=== PATIENT | male | born 1945 | race Caucasian/White ===

== ENCOUNTER 2016-05-05 19:00 | Observation (INO) | payer MEDICARE ==
[2016-05-05] MEDS ORDERED: PROVENTIL 2.5 MG/3 ML NEB IH ONE ×4 (19:07→20:07)
[2016-05-05] MEDS ORDERED: ROCEPHIN 1 Gm-D5w 50 ml Bag** 50 ML IV ONE ×2 (19:07→19:17)
[2016-05-05] MEDS ORDERED: Zithromax 500 MG/ 250 ML NaCl Premix 250 ML IV ONE ×2 (19:07→19:17)
[2016-05-05] MEDS ORDERED: Sodium Chloride 0.9% 1000 ML 1,000 ML IV SCH (19:15)
[2016-05-05] MEDS ORDERED: Nitrostat 0.4 MG (ED) SL ONE ×2 (19:15→19:23)
[2016-05-05] MEDS ORDERED: BABY ASPIRIN 81 MG CHEW PO ONE (19:15)
--- NOTE | 2016-05-05 19:15 | ERPHSYRPT ---
- History of Present Illness Time Seen by Provider: 05/05/16 19:01 Source: patient Exam Limitations: no limitations Patient Subjective Stated Complaint: Shortness of breath for a few days. Sts worse since last night. Sts intermittent dry cough with pain in rt posterior ribs. Triage Nursing Assessment: Pt alert, oriented, able to answer questions appropriately. Skin p/w/d. Dry cough noted. Shortness of breath with ambulation noted. Accessory muscle use noted, + JVD noted. Tripod positioning noted. Subcostal retractions noted. SPO2 90% room air. Physician History: FOR THE PAST 2 DAYS PT HAS HAD SHORTNESS OF AIR AND A NON-PRODUCTIVE COUGH; DENIES CHEST PAIN, NAUSEA, DIAPHORESIS, VOMITING. Allergies/Adverse Reactions: No Known Drug Allergies Allergy (Unverified 05/05/16 19:18) Home Medications: Albuterol 2.5 mg/3 ml Neb [Proventil 2.5 mg/3 ml Neb] 2.5 mg IH HS [History] Albuterol Sulfate [Proair Hfa] 8.5 gm IH BID 05/05/16 [History] Alprazolam [Xanax 0.5 mg] 0.5 mg PO TID 05/05/16 [History] Hx Tetanus, Diphtheria Vaccination/Date Given: Yes Hx Influenza Vaccination/Date Given: Yes Hx Pneumococcal Vaccination/Date Given: Yes Immunizations Up to Date: Yes - Review of Systems Constitutional: No Fever Respiratory: Cough, Dyspnea Cardiac: No Chest Pain Abdominal/Gastrointestinal: No Abdominal Pain, No Nausea, No Vomiting Skin: No Rash Endocrine: No Excessive Sweating All Other Systems: Reviewed and Negative - Past Medical History Neurological History: No Pertinent History Cardiac History: No Pertinent History Respiratory History: COPD Endocrine Medical History: No Pertinent History Musculoskeletal History: No Pertinent History - Social History Smoking Status: Current every day smoker How long have you smoked: 30 Exposure to second hand smoke: No Patient Lives Alone: No - Nursing Vital Signs Nursing Vital Signs: Initial Vital Signs Temperature 98.1 F Temperature Source Oral Pulse Rate 124 Respiratory Rate 22 Blood Pressure 113/71 Pain Intensity 0 - Physical Exam General Appearance: alert Eye Exam: PERRL/EOMI, eyes nml inspection Ears, Nose, Throat Exam: hearing grossly normal, pharyngeal erythema (MILD) Neck Exam: normal inspection Respiratory Exam: respiratory distress (MILD), airway intact, diminished breath sounds, prolonged expirations, wheezing Cardiovascular/Chest Exam: tachycardia Abdominal/Gastrointestinal Exam: soft, normal bowel sounds Extremity Exam: No pedal edema Peripheral Pulses Exam: dorsalis-pedis (R): 2+, dorsalis-pedis (L): 2+ Neurologic Exam: alert, cooperative Skin Exam: warm, dry SpO2 Interpretation: hypoxic SpO2: 90 Oxygen Delivery: Room Air - Course Nursing assessment & vital signs reviewed: Yes EKG Interpreted by Me: RATE ([id number]), Sinus Tach, NORMAL AXIS, NORMAL INTERVALS - Radiology Exams Chest X-ray Interpretation: Interpreted by me (COPD) Ordered Tests: Active Orders 24 hr Category Date Time Status Duty Engineer STAT Care 05/05/16 19:07 Active EKG-ER Only STAT Care 05/05/16 19:07 Active IV Insertion STAT Care 05/05/16 19:07 Active Oxygen-ED Only NASAL CANNULA 4 lpm Care 05/05/16 19:07 Active Pulse Oximetry (ED) STAT Care 05/05/16 19:07 Active CHEST 1 VIEW (PORTABLE) Stat Exams 05/05/16 19:08 Taken AMYLASE Stat Lab 05/05/16 19:10 Completed ARTERIAL BLOOD GASES Urgent Lab 05/05/16 19:38 Completed BLOOD CULTURE Stat Lab 05/05/16 19:35 Received CBC W DIFF Stat Lab 05/05/16 19:10 Completed CMP Stat Lab 05/05/16 19:10 Completed CULTURE, THROAT Stat Lab 05/05/16 19:25 Received CULTURE,SPUTUM Stat Lab 05/05/16 19:07 Uncollected LIPASE Stat Lab 05/05/16 19:10 Completed MAGNESIUM Stat Lab 05/05/16 19:10 Completed Manual Differential NC Stat Lab 05/05/16 19:10 Completed [place] Screen Stat Lab 05/05/16 19:10 Received NT PRO BNP Stat Lab 05/05/16 19:10 Completed PROTIME WITH INR Stat Lab 05/05/16 19:10 Completed PTT Stat Lab 05/05/16 19:10 Completed STREP SCREEN-BETA A Stat Lab 05/05/16 19:25 Completed TROPONIN Stat Lab 05/05/16 19:10 Completed UA Stat Lab 05/05/16 19:09 Ordered Urine Triage Profile Stat Lab 05/05/16 19:09 Ordered Respiratory Nebulizer STAT RT 05/05/16 19:08 Completed Respiratory Nebulizer STAT RT 05/05/16 19:56 Active Medication Summary Generic Name Dose Route Start Last Admin Trade Name Mendoza PRN Reason Stop Dose Admin Azithromycin 250 mls @ 125 mls/hr 05/05/16 19:07 05/05/16 19:22 Zithromax 500 Mg/ 250 Ml Nacl Premix IV 05/05/16 21:06 125 mls/hr STAT ONE Administration Sodium Chloride 1,000 mls @ 100 mls/hr 05/05/16 19:15 05/05/16 19:22 Sodium Chloride 0.9% 1000 Ml IV 06/04/16 19:14 100 mls/hr .Q10H YEYO Administration Magnesium Oxide 400 mg 05/05/16 22:00 Mag-Ox 400 PO 06/04/16 21:59 BID YEYO Methylprednisolone Sodium Succinate 125 mg 05/05/16 20:09 Solu-Medrol 125 Mg IV 05/05/16 20:10 STAT ONE Discontinued Medications Generic Name Dose Route Start Last Admin Trade Name Mendoza PRN Reason Stop Dose Admin Albuterol Sulfate 2.5 mg 05/05/16 19:07 05/05/16 19:38 Proventil 2.5 Mg/3 Ml Neb IH 05/05/16 19:08 2.5 mg STAT ONE Administration Albuterol Sulfate Confirm 05/05/16 19:31 Proventil 2.5 Mg/3 Ml Neb Administered 05/05/16 19:32 Dose 2.5 mg IH .STK-MED ONE Albuterol Sulfate 2.5 mg 05/05/16 19:55 05/05/16 20:08 Proventil 2.5 Mg/3 Ml Neb IH 05/05/16 19:56 2.5 mg STAT ONE Administration Aspirin 324 mg 05/05/16 19:15 05/05/16 19:25 Baby Aspirin 81 Mg Chew PO 05/05/16 19:16 324 mg STAT ONE Administration Aspirin Confirm 05/05/16 19:22 Baby Aspirin 81 Mg Chew Administered 05/05/16 19:23 Dose 324 mg .ROUTE .STK-MED ONE Ceftriaxone Sodium/Dextrose 50 mls @ 100 mls/hr 05/05/16 19:07 05/05/16 19:22 Rocephin 1 Gm-D5w 50 Ml Bag IV 05/05/16 19:36 100 mls/hr STAT ONE Administration Azithromycin Confirm 05/05/16 19:17 Zithromax 500 Mg/ 250 Ml Nacl Premix Administered 05/05/16 19:18 Dose 250 mls @ ud IV .STK-MED ONE Sodium Chloride Confirm 05/05/16 19:17 Sodium Chloride 0.9% 1000 Ml Administered 05/05/16 19:18 Dose 1,000 mls @ ud .ROUTE .STK-MED ONE Ceftriaxone Sodium/Dextrose Confirm 05/05/16 19:17 Rocephin 1 Gm-D5w 50 Ml Bag Administered 05/05/16 19:18 Dose 50 mls @ ud IV .STK-MED ONE Nitroglycerin 0.4 mg 05/05/16 19:15 05/05/16 19:25 Nitrostat 0.4 Mg (Ed) SL 05/05/16 19:16 0.4 mg STAT ONE Administration Nitroglycerin Confirm 05/05/16 19:23 Nitrostat 0.4 Mg (Ed) Administered 05/05/16 19:24 Dose 0.4 mg SL .STK-MED ONE Lab/Rad Data: Laboratory Result Diagrams 05/05/16 19:10 05/05/16 19:10 Laboratory Results 05/05/16 05/05/16 05/05/16 Range/Units 19:38 19:25 19:10 WBC (4.0-10.5) K/mm3 RBC (4.1-5.6) M/mm3 Hgb (12.5-18.0) gm/dl Hct (42-50) % MCV (78-100) fl MCH (26-32) pg MCHC (32-36) g/dl RDW (11.5-14.0) % Plt Count (150-450) K/mm3 MPV (6-9.5) fl INR (0.8-3.0) PTT (24.1-36.1) SECONDS Puncture Site LEFT BRACHIAL pCO2 41 (35-45) mmHg pO2 108 H (75-100) mmHg Base Excess 5.6 H (-2.0-2.0) O2 Saturation 95.1 (94-100) g/dF ABG pH 7.47 H (7.35-7.45) ABG HCO3 29.8 H* (22-28) ABG O2 Sat (Measured) 99.2 (95-100) % Greg Test NOT APPLICABLE A-a Gradient 97 a/A Ratio 0.53 Hemoglobin 13.0 Carboxyhemoglobin 2.9 (0.0-6.9) % THgb Methemoglobin 1.3 L (1.4-1.5) % Temperature 37.0 C POC O2 Flow Rate 36 % Sodium (136-145) mEq/L Potassium 4.0 (3.5-5.1) mEq/L Chloride (98-107) mEq/L Carbon Dioxide (21-32) mEq/L Anion Gap (5-15) MEQ/L BUN (9-20) mg/dL Creatinine (0.55-1.30) mg/dl Estimated GFR ML/MIN Glucose (70-110) MG/DL Calcium (8.5-10.1) mg/dL Magnesium (1.8-2.4) mg/dL Total Bilirubin (0.2-1.0) mg/dL AST (15-37) U/L ALT (12-78) U/L Alkaline Phosphatase (46-116) U/L Troponin I (0.000-0.056) ng/ml NT-Pro-B Natriuret Pep (0-125) pg/ml Serum Total Protein (6.4-8.2) gm/dL Albumin (3.4-5.0) g/dL Amylase 40 (25-115) U/L Lipase 106 (73-393) U/L Streptococcus Screen NEGATIVE (Negative) 05/05/16 05/05/16 05/05/16 Range/Units 19:10 19:10 19:10 WBC 16.9 H (4.0-10.5) K/mm3 RBC 4.26 (4.1-5.6) M/mm3 Hgb 13.6 (12.5-18.0) gm/dl Hct 41.5 L (42-50) % MCV 97.4 (78-100) fl MCH 31.9 (26-32) pg MCHC 32.8 (32-36) g/dl RDW 13.2 (11.5-14.0) % Plt Count 218 (150-450) K/mm3 MPV 10.8 H (6-9.5) fl INR 1.23 (0.8-3.0) PTT 34.3 (24.1-36.1) SECONDS Puncture Site pCO2 (35-45) mmHg pO2 (75-100) mmHg Base Excess (-2.0-2.0) O2 Saturation (94-100) g/dF ABG pH (7.35-7.45) ABG HCO3 (22-28) ABG O2 Sat (Measured) (95-100) % Greg Test A-a Gradient a/A Ratio Hemoglobin Carboxyhemoglobin (0.0-6.9) % THgb Methemoglobin (1.4-1.5) % Temperature C POC O2 Flow Rate % Sodium 141 (136-145) mEq/L Potassium 4.0 (3.5-5.1) mEq/L Chloride 102 (98-107) mEq/L Carbon Dioxide 31.7 (21-32) mEq/L Anion Gap 11.1 (5-15) MEQ/L BUN 20 (9-20) mg/dL Creatinine 1.01 (0.55-1.30) mg/dl Estimated GFR > 60 ML/MIN Glucose 100 (70-110) MG/DL Calcium 8.8 (8.5-10.1) mg/dL Magnesium 1.6 L (1.8-2.4) mg/dL Total Bilirubin 0.7 (0.2-1.0) mg/dL AST 13 L (15-37) U/L ALT 15 (12-78) U/L Alkaline Phosphatase 63 (46-116) U/L Troponin I < 0.017 (0.000-0.056) ng/ml NT-Pro-B Natriuret Pep 222 H (0-125) pg/ml Serum Total Protein 7.5 (6.4-8.2) gm/dL Albumin 3.7 (3.4-5.0) g/dL Amylase (25-115) U/L Lipase (73-393) U/L Streptococcus Screen (Negative) - Progress Discussed with Dr.: Cervantes ( - 2006) - Departure Time of Disposition: 20:10 Departure Disposition: Observation Clinical Impression: COPD - ACUTE EXACERBATION, BRONCHITIS, HYPOMAGNESEMIA Condition: Fair Critical Care Time: No
[2016-05-05] MEDS ORDERED: Sodium Chloride 0.9% 1000 ML 1,000 ML ONE (19:17)
[2016-05-05] MEDS ORDERED: BABY ASPIRIN 81 MG CHEW ONE (19:22)
[2016-05-05 19:32] LABS: Mean Cell Volume 97.4 fl (78-100); Mean Corpuscular Hemoglobin 31.9 pg (26-32); Mean Platelet Volume 10.8 fl (6-9.5); Platelet Count 218 K/mm3 (150-450); Red Blood Count 4.26 M/mm3 (4.1-5.6); Red Cell Distribution Width 13.2 % (11.5-14.0); White Blood Count 16.9 K/mm3 (4.0-10.5)
[2016-05-05 19:46] LABS: A-aADO2 97; ARTERIAL BLD GAS O2 SATURATION 99.2 % (95-100); ARTERIAL BLOOD GAS BASE EXCESS 5.6 (-2.0-2.0); ARTERIAL BLOOD GAS FIO2 36 %; ARTERIAL BLOOD GAS PO2 108 mmHg (75-100); ARTERIAL BLOOD GAS pH 7.47 (7.35-7.45)
[2016-05-05 19:49] LABS: INR 1.23 (0.8-3.0); PROTIME 13.7 SECONDS (8.83-12.87)
[2016-05-05 19:52] LABS: PTT 34.3 SECONDS (24.1-36.1)
[2016-05-05 19:54] LABS: LIPASE 106 U/L (73-393)
[2016-05-05 20:03] LABS: ALBUMIN 3.7 g/dL (3.4-5.0); ALKALINE PHOSPHATASE 63 U/L (46-116); ANION GAP 11.1 MEQ/L (5-15); BILIRUBIN,TOTAL 0.7 mg/dL (0.2-1.0); BLOOD UREA NITROGEN 20 mg/dL (9-20); CHLORIDE 102 mEq/L (98-107); Carbon Dioxide 31.7 mEq/L (21-32); Glucose 100 MG/DL (70-110); MAGNESIUM 1.6 mg/dL (1.8-2.4); SGOT/AST 13 U/L (15-37); SGPT/ALT 15 U/L (12-78); SODIUM 141 mEq/L (136-145); TROPONIN < 0.017 ng/ml (0.000-0.056); Total Protein 7.5 gm/dL (6.4-8.2)
[2016-05-05] MEDS ORDERED: solu-MEDROL 125 MG IV ONE (20:09)
[2016-05-05] MEDS ORDERED: MAG-OX 400 ONE (20:24)
[2016-05-05] MEDS ORDERED: solu-MEDROL 125 MG ONE (20:24)
[2016-05-05 20:39] LABS: ATYPICAL LYMPHS 1 %; BAND 2 % (0.0-2.0); Platelet Estimate NORMAL (NORMAL); Total Cells Counted 100
[2016-05-05] MEDS ORDERED: DILAUDID 2 MG INJECTION IV PRN (20:41)
[2016-05-05] MEDS ORDERED: PROVENTIL 2.5 MG/3 ML NEB IH PRN (20:41)
[2016-05-05] MEDS ORDERED: TYLENOL 325 MG PO PRN (20:41)
[2016-05-05] MEDS ORDERED: Phenergan 25 MG INJ IV PRN (20:41)
[2016-05-05] MEDS ORDERED: PROVENTIL COMMON CANISTER IH PRN (21:33)
[2016-05-05] MEDS ORDERED: MAG-OX 400 PO SCH (22:00)
[2016-05-05] MEDS ORDERED: XANAX 1 MG ONE (22:23)
[2016-05-05] MEDS: NORCO 5/325 MG PO SCH (22:29)
[2016-05-05] MEDS: Sodium Chloride 0.9% 1000 ML 1,000 ML IV SCH (22:30)
[2016-05-05] MEDS: XANAX 1 MG PO SCH (22:30)
[2016-05-05] MEDS: solu-MEDROL 125 MG IV SCH (22:30)
[2016-05-05] MEDS: MAG-OX 400 PO SCH (22:31)
[2016-05-05] MEDS: DUONEB 0.5-3 MG/3 ml Neb IH SCH (22:58)
[2016-05-06] MEDS: DUONEB 0.5-3 MG/3 ml Neb IH SCH ×6 (03:00→23:17)
[2016-05-06] MEDS ORDERED: solu-MEDROL 125 MG ONE (03:05)
[2016-05-06] MEDS: solu-MEDROL 125 MG IV SCH (03:07)
[2016-05-06 05:36] LABS: Mean Cell Volume 98.6 fl (78-100); Mean Platelet Volume 10.5 fl (6-9.5); Platelet Count 182 K/mm3 (150-450); Red Blood Count 3.61 M/mm3 (4.1-5.6); Red Cell Distribution Width 13.3 % (11.5-14.0); White Blood Count 12.9 K/mm3 (4.0-10.5)
[2016-05-06] MEDS: Sodium Chloride 0.9% 1000 ML 1,000 ML IV SCH ×2 (05:38→16:17)
[2016-05-06 05:46] LABS: Mean Corpuscular Hemoglobin 31.5 pg (26-32)
[2016-05-06 05:54] LABS: ALBUMIN 2.8 g/dL (3.4-5.0); ALKALINE PHOSPHATASE 49 U/L (46-116); ANION GAP 11.1 MEQ/L (5-15); BILIRUBIN,TOTAL 0.4 mg/dL (0.2-1.0); BLOOD UREA NITROGEN 20 mg/dL (9-20); CHLORIDE 106 mEq/L (98-107); Carbon Dioxide 27.8 mEq/L (21-32); Glucose 197 MG/DL (70-110); MAGNESIUM 1.9 mg/dL (1.8-2.4); Potassium 3.8 mEq/L (3.5-5.1); SGOT/AST 9 U/L (15-37); SGPT/ALT 11 U/L (12-78); SODIUM 141 mEq/L (136-145); Total Protein 6.1 gm/dL (6.4-8.2)
[2016-05-06 06:11] LABS: BAND 1 % (0.0-2.0); Total Cells Counted 100
[2016-05-06 06:12] LABS: ANISOCYTOSIS 1+; Platelet Estimate NORMAL (NORMAL); Poikilocytosis 1+
--- NOTE | 2016-05-06 08:40 | XRAY ---
Indication: Short of breath. COPD. Comparison: November 11, 2015 Portable apical lordotic chest remains hyperinflated and clear with a few calcified granulomas. Heart and mediastinal structures within normal limits. Bony thorax intact. No new/acute findings. Impression: Stable nonacute hyperinflated chest.
[2016-05-06 08:49] LABS: COMPLETE URINE MICROSCOPIC? YES; Collection Type VOID; Ph 6.5 (5-6)
[2016-05-06] MEDS ORDERED: solu-MEDROL 40 MG IV SCH (09:00)
[2016-05-06 09:03] LABS: Epithelial Cells RARE /HPF (FEW); Mucus SLIGHT /HPF (NEGATIVE); WBC 0-2 /HPF (0-5)
[2016-05-06 09:04] LABS: Bacteria RARE /HPF (NEGATIVE); Hyaline Casts 0-2 /LPF (0-2)
[2016-05-06] MEDS: xanAX 0.5 MG PO SCH (09:40)
[2016-05-06] MEDS: NORCO 5/325 MG PO SCH ×3 (09:40→22:06)
[2016-05-06] MEDS: MAG-OX 400 PO SCH ×2 (09:40→22:06)
--- NOTE | 2016-05-06 11:32 | XRAY ---
Indication: Dyspnea and elevated d-dimer. Multiple contiguous axial images obtained through the chest using 80 cc Isovue 370 contrast and PE protocol. Comparison: None There is good opacification of the pulmonary arteries including lobar and segmental branches. No filling defect or pulmonary embolus. Heart is not enlarged. Aorta minimally calcified without aneurysm/dissection. Right hilar calcified nodes. No pathologic mediastinal/hilar lymphadenopathy. Examination of the lung parenchyma demonstrates diffuse pulmonary emphysema and inferior right upper lobe calcified granuloma. Indeterminate 6 mm noncalcified irregular nodularity seen in the periphery of the right lower lobe (image 36, series 4). Smaller 3 mm noncalcified nodule in the left upper lobe (image 23, series 4). In the posterior medial right upper lobe, there are peripheral fibrosis/scarring, some consolidating airspace opacities. Lesser fibrosis/scarring seen in the anterior left upper lobe, lingula, and right base. No effusion. Bony thorax intact with minimal degenerative changes throughout the spine. Limited upper abdomen demonstrate 6 mm hepatic cyst and partially visualized 4.8 cm left renal cyst. Impression: 1. Negative for pulmonary embolus. 2. Right upper lobe peripheral patchy consolidating air space disease. 3. Indeterminate 6 mm right lower lobe and 3 mm left upper lobe noncalcified nodules. Consider follow-up per Fleischner guidelines. 4. Pulmonary emphysema and evidence for old granulomatous disease. 5. Incidental tiny hepatic cyst and partially visualized left renal cyst. CT DI 10.00
[2016-05-06] MEDS: solu-MEDROL 40 MG IV SCH ×2 (13:47→22:07)
--- NOTE | 2016-05-06 15:54 | HP ---
HISTORY OF PRESENT ILLNESS: This is a 70 year-old man who presented to the emergency department brought in by his daughter. He reports that he started feeling bad two days ago. He has a long history of chronic obstructive pulmonary disease. He states he usually wears a mask and he was outside. He was outside without his mask on one cold day. He reports that he felt very tired this past Wednesday night and was having trouble breathing. He reports his daughter came over and they checked his oxygen saturation with his home oximeter and it was 95%. He reports that he started having some pain in his right lower back for which he tried to use Icy Hot for. His pain would hurt worse when he would cough. He continued to have increased dyspnea and so his daughter brought him to the hospital. He reports that he was using his Albuterol nebulizer at home but not very often just about one time before he would go to bed. He reported that in general he did not like taking the Breo and he reported Symbicort makes him feel like he was talking funny. He felt like the Symbicort did work better so he wants to go back on that. He reports the cough is mostly nonproductive. He is feeling a little bit better since coming to the emergency department last night. He is breathing easier. REVIEW OF SYSTEMS: He denies any fever. No nausea or vomiting. He had a headache last night as he was given Nitro. No edema. No dysuria. No rashes. No chest pain. PAST MEDICAL HISTORY: Anxiety. Chronic obstructive pulmonary disease. Back pain. PAST SURGICAL HISTORY: None. MEDICATIONS: Albuterol nebulized every four hours as needed, Alprazolam 0.5 mg p.o. t.i.d., Breo 100 mcg/25 mcg per day which he has not been taking, hydrocodone 5/325 mg 1 tablet b.i.d. as needed for pain, Ventolin HFA 2 puffs every four hours as needed. ALLERGIES: NKDA. SOCIAL HISTORY: He quit smoking 40 to 50 days ago. He had smoked a pack per week for 40 years. He chews tobacco. He has a history of alcohol abuse but no longer uses alcohol. Denies any illicit drug use. FAMILY HISTORY: His father had heart disease and at age 53. Hs mother had kidney disease and at age 51. PHYSICAL EXAMINATION: VITAL SIGNS: Temperature current 97.9F, temperature max 98.3F, heart rate 79* to 114, respiratory rate 16 to 28 currently 24, blood pressure 128 to 148 over 68 to 70, weight 55.1 kg. Oxygen saturation 91 to 97% on 2 liters nasal cannula. GENERAL: The patient is a pleasant talkative man lying in bed in no acute distress. CVS: He has a regular rate and rhythm. No murmurs, gallops or rubs are appreciated. CHEST: He has distant breath sounds bilaterally though equal, few scattered wheezes. No crackles or rhonchi. ABDOMEN: Soft, nontender, nondistended with normal bowel sounds. EXTREMITIES: No clubbing, cyanosis or edema. SKIN: Warm, dry and intact. LABORATORY DATA AND TESTS: On admission his white blood cell count was 16,900. Repeat white blood cell count this morning was 12,900 with a left shift. His D-dimer was checked and was 0.812 which is a critical value. CMP revealed glucose 197. Hemoglobin A1C was normal at 5.9. Troponins have been negative. Chest x-ray read as stable, nonacute hyperinflated chest. A CT was obtained after the elevated D-dimer. Please see the radiologist dictation for the full report. It is negative for pulmonary embolism. Upper lobe patchy consolidating airspace disease, indeterminate 6 mm right lower lobe and 3 mm left upper lobe noncalcified nodule, pulmonary emphysema and tiny hepatic cyst. ASSESSMENT AND PLAN: 1) CHRONIC OBSTRUCTIVE PULMONARY DISEASE EXACERBATION. He was started on ceftriaxone and azithromycin as well as IV steroids. Will plan to continue with all of these, continue with breathing treatments and oxygen as needed. The patient has improved significantly since being in the emergency department. 2) ANXIETY. Will continue him on his home dose of Xanax. 3) ELEVATED D-DIMER. We checked CT to rule out for acute pulmonary embolism. He did rule out for this. We will need to follow the lung nodules as an outpatient. 4) HYPERGLYCEMIA. His hemoglobin A1C was checked and was normal so I think the hyperglycemia is related to the IV steroids.
[2016-05-06] MEDS ORDERED: Advair Hfa 230/21 Mcg COMMON CANISTER IH SCH (19:00)
[2016-05-06] MEDS: Advair Hfa 230/21 Mcg COMMON CANISTER IH SCH (19:14)
[2016-05-06] MEDS: Spiriva 18 Mcg/Cap Inhaler IH SCH (19:36)
[2016-05-06] MEDS: ROCEPHIN 1 Gm-D5w 50 ml Bag** 50 ML IV SCH (19:51)
[2016-05-06] MEDS: Zithromax 500 MG/ 250 ML NaCl Premix 250 ML IV SCH (20:50)
[2016-05-06] MEDS ORDERED: XANAX 1 MG PO SCH (22:00)
[2016-05-06] MEDS: XANAX 1 MG PO SCH (22:07)
[2016-05-07] MEDS: DUONEB 0.5-3 MG/3 ml Neb IH SCH (03:51)
[2016-05-07] MEDS: Sodium Chloride 0.9% 1000 ML 1,000 ML IV SCH ×2 (04:26→17:10)
[2016-05-07] MEDS: solu-MEDROL 40 MG IV SCH (05:12)
[2016-05-07 05:40] LABS: Mean Cell Volume 99.2 fl (78-100); Mean Corpuscular Hemoglobin 31.5 pg (26-32); Mean Platelet Volume 10.7 fl (6-9.5); Platelet Count 205 K/mm3 (150-450); Red Blood Count 3.61 M/mm3 (4.1-5.6); Red Cell Distribution Width 13.6 % (11.5-14.0); White Blood Count 19.3 K/mm3 (4.0-10.5)
[2016-05-07 06:04] LABS: ANION GAP 10.7 MEQ/L (5-15); BLOOD UREA NITROGEN 15 mg/dL (9-20); CHLORIDE 108 mEq/L (98-107); Carbon Dioxide 28.2 mEq/L (21-32); Glucose 157 MG/DL (70-110); Potassium 3.7 mEq/L (3.5-5.1); SODIUM 143 mEq/L (136-145)
[2016-05-07 06:28] LABS: ATYPICAL LYMPHS 2 %; Total Cells Counted 100
[2016-05-07 06:29] LABS: Platelet Estimate NORMAL (NORMAL)
[2016-05-07] MEDS: Advair Hfa 230/21 Mcg COMMON CANISTER IH SCH ×2 (06:45→18:46)
[2016-05-07] MEDS: PROVENTIL 2.5 MG/3 ML NEB IH SCH ×5 (06:45→22:48)
[2016-05-07] MEDS: Spiriva 18 Mcg/Cap Inhaler IH SCH (06:45)
--- NOTE | 2016-05-07 09:08 | PCM.NOTE ---
Date and Time: 05/07/16902 Subjective Assessment: He reports that he has been getting up around his room. His appetite has been good. He is feeling a little better but they have not been able to wean him off the oxygen yet. He continues to have a cough productive of a little sputum. He reports a remote history of lung nodules. - Review of Systems Constitutional: No Symptoms Eyes: No Symptoms Ears, Nose, & Throat: No Symptoms Respiratory: Cough, Short Of Breath, No Orthopnea, No Wheezing Cardiac: No Symptoms Abdominal/Gastrointestinal: No Symptoms Genitourinary Symptoms: No Symptoms Musculoskeletal: No Symptoms Skin: No Symptoms Objective Exam General Appearance: no apparent distress, alert Neurologic Exam: alert, cooperative, normal mood/affect Skin Exam: normal color, warm, dry, No rash Respiratory Exam: lungs clear, other (distant breath sounds), No respiratory distress, No crackles/rales, No rhonchi, No wheezing Cardiovascular Exam: regular rate/rhythm, normal heart sounds, No murmur, No friction rub, No gallop Gastrointestinal/Abdomen Exam: soft, normal bowel sounds, No tenderness, No distention, No mass Extremity Exam: other (no c/c/e) OBJECTIVE DATA Vital Signs: Vital Signs - 24 hr Temp Pulse Resp BP Pulse Ox 05/07/16 07:34 97.5 F 109 H 21 135/75 99 05/07/16 06:47 109 H 16 94 L 05/07/16 05:00 16 05/07/16 03:51 92 H 19 94 L 05/07/16 03:46 98.7 F 103 H 16 126/66 94 L 05/07/16 01:00 17 05/07/16 00:00 97.8 F 95 H 17 106/56 97 05/06/16 23:17 95 H 17 97 05/06/16 21:00 18 05/06/16 19:02 94 H 18 95 05/06/16 18:44 97.5 F 110 H 18 134/71 10 L 05/06/16 17:00 20 05/06/16 15:59 98.3 F 89 20 117/66 94 L 05/06/16 15:27 97.9 F 05/06/16 14:00 91 H 18 92 L 05/06/16 13:00 20 05/06/16 12:00 97.9 F 97 H 24 128/68 97 05/06/16 10:15 98 H 16 92 L Oxygen-Last 24 hours O2 Percentage 2 Liters = 28% O2 Percentage 2 Liters = 28% O2 Percentage 2 Liters = 28% O2 Percentage 2 Liters = 28% O2 Percentage 1 Liter = 24% Pain Assessment - Last Documented Pain Intensity 3 Pain Scale Used 0-10 Pain Scale Intake and Output: Intake & Output 05/05/16 05/06/16 05/07/16 05/08/16 06:59 06:59 06:59 06:59 Intake Total 1590 2783 Balance 1590 2783 Weight 55.157 kg Lab Results: Lab Results-Last 24 Hours 05/06/16 05/06/16 05/06/16 Range/Units 05:00 05:05 08:20 WBC (4.0-10.5) K/mm3 RBC (4.1-5.6) M/mm3 Hgb (12.5-18.0) gm/dl Hct (42-50) % MCV (78-100) fl MCH (26-32) pg MCHC (32-36) g/dl RDW (11.5-14.0) % Plt Count (150-450) K/mm3 MPV (6-9.5) fl Segmented Neutrophils (36.-66.) % Lymphocytes (Manual) (24-44) % Monocytes (Manual) (0.0-12.0) % Differential Comment Atypical Lymphocytes % Platelet Estimate (NORMAL) D-Dimer 0.812 H* (0.00-0.49) mg/L Sodium (136-145) mEq/L Potassium (3.5-5.1) mEq/L Chloride (98-107) mEq/L Carbon Dioxide (21-32) mEq/L Anion Gap (5-15) MEQ/L BUN (9-20) mg/dL Creatinine (0.55-1.30) mg/dl Estimated GFR ML/MIN Glucose (70-110) MG/DL Hemoglobin A1c 5.9 (4.5-6.2) Calcium (8.5-10.1) mg/dL Ur Collection Type VOID Urine Color YELLOW (YELLOW) Urine Appearance CLEAR (CLEAR) Urine pH 6.5 (5-6) Ur Specific [place] 1.015 (1.005-1.025) Urine Protein NEGATIVE (Negative) Urine Glucose (UA) NEGATIVE (NEGATIVE) mg/dL Urine Ketones NEGATIVE (NEGATIVE) Urine Nitrite NEGATIVE (NEGATIVE) Urine Bilirubin NEGATIVE (NEGATIVE) Urine Urobilinogen 0.2 (0-1) mg/dL Urine WBC (Auto) NEGATIVE (NEGATIVE) Urine RBC (Auto) TRACE HEMOLYZED (0-5) Miki/ul Urine Microscopic RBC 2-5 (0-2) /HPF Urine Microscopic WBC 0-2 (0-5) /HPF Ur Epithelial Cells RARE (FEW) /HPF Urine Bacteria RARE (NEGATIVE) /HPF Hyaline Casts 0-2 (0-2) /LPF Urine Mucus SLIGHT (NEGATIVE) /HPF Urine Opiates Level (NEGATIVE) Ur Methadone (NEGATIVE) Urine Barbiturates (NEGATIVE) Ur Phencyclidine (PCP) (NEGATIVE) Urine Amphetamine (NEGATIVE) U Benzodiazepine Level (NEGATIVE) Urine Cocaine (NEGATIVE) Urine Marijuana (THC) (NEGATIVE) Specimen Received 05/06/16 0820 05/06/16 05/07/16 05/07/16 Range/Units 08:20 05:05 05:05 WBC 19.3 H (4.0-10.5) K/mm3 RBC 3.61 L (4.1-5.6) M/mm3 Hgb 11.4 L (12.5-18.0) gm/dl Hct 35.8 L (42-50) % MCV 99.2 (78-100) fl MCH 31.5 (26-32) pg MCHC 31.8 L (32-36) g/dl RDW 13.6 (11.5-14.0) % Plt Count 205 (150-450) K/mm3 MPV 10.7 H (6-9.5) fl Segmented Neutrophils 87 H (36.-66.) % Lymphocytes (Manual) 9 L (24-44) % Monocytes (Manual) 2 (0.0-12.0) % Differential Comment NORMAL Atypical Lymphocytes 2 % Platelet Estimate NORMAL (NORMAL) D-Dimer (0.00-0.49) mg/L Sodium 143 (136-145) mEq/L Potassium 3.7 (3.5-5.1) mEq/L Chloride 108 H (98-107) mEq/L Carbon Dioxide 28.2 (21-32) mEq/L Anion Gap 10.7 (5-15) MEQ/L BUN 15 (9-20) mg/dL Creatinine 0.75 (0.55-1.30) mg/dl Estimated GFR > 60 ML/MIN Glucose 157 H (70-110) MG/DL Hemoglobin A1c (4.5-6.2) Calcium 8.2 L (8.5-10.1) mg/dL Ur Collection Type Urine Color (YELLOW) Urine Appearance (CLEAR) Urine pH (5-6) Ur Specific [place] (1.005-1.025) Urine Protein (Negative) Urine Glucose (UA) (NEGATIVE) mg/dL Urine Ketones (NEGATIVE) Urine Nitrite (NEGATIVE) Urine Bilirubin (NEGATIVE) Urine Urobilinogen (0-1) mg/dL Urine WBC (Auto) (NEGATIVE) Urine RBC (Auto) (0-5) Miki/ul Urine Microscopic RBC (0-2) /HPF Urine Microscopic WBC (0-5) /HPF Ur Epithelial Cells (FEW) /HPF Urine Bacteria (NEGATIVE) /HPF Hyaline Casts (0-2) /LPF Urine Mucus (NEGATIVE) /HPF Urine Opiates Level NEG. (NEGATIVE) Ur Methadone NEG. (NEGATIVE) Urine Barbiturates NEG. (NEGATIVE) Ur Phencyclidine (PCP) NEG. (NEGATIVE) Urine Amphetamine NEG. (NEGATIVE) U Benzodiazepine Level POS. (NEGATIVE) Urine Cocaine NEG. (NEGATIVE) Urine Marijuana (THC) NEG. (NEGATIVE) Specimen Received Radiology Exams: Radiology Procedures Category Date Time Status CHEST WITH CONTRAST [CT] Urgent Exams 05/06/16 09:13 Completed Assessment/Plan (1) COPD exacerbation Current Visit: Yes Status: Acute Assessment & Plan: Continue IV ceftriaxone and axithromycin. Will stop IV steroids and change to prednisone by mouth. Continue oxygen and try to wean off if tolerated and continue breathing treatments. Code(s): J44.1 - CHRONIC OBSTRUCTIVE PULMONARY DISEASE W (ACUTE) EXACERBATION (2) Anxiety Current Visit: Yes Status: Acute Assessment & Plan: Currently controlled on his home dose of xanax. Code(s): F41.9 - ANXIETY DISORDER, UNSPECIFIED (3) Multiple lung nodules on CT Current Visit: Yes Status: Acute Assessment & Plan: Will plan for him to see the embedded processor as an outpatient and also plan to recheck CT scan in 3 months. Code(s): R91.8 - OTHER NONSPECIFIC ABNORMAL FINDING OF LUNG FIELD (4) Elevated d-dimer Current Visit: Yes Status: Acute Assessment & Plan: Chest CT was negative for PE. Code(s): R79.89 - OTHER SPECIFIED ABNORMAL FINDINGS OF BLOOD CHEMISTRY (5) Hyperglycemia Current Visit: Yes Status: Acute Assessment & Plan: Most likely due to steroids. Code(s): R73.9 - HYPERGLYCEMIA, UNSPECIFIED
[2016-05-07] MEDS: NORCO 5/325 MG PO SCH ×3 (09:26→22:12)
[2016-05-07] MEDS: xanAX 0.5 MG PO SCH (09:26)
[2016-05-07] MEDS: MAG-OX 400 PO SCH ×2 (09:26→22:11)
[2016-05-07] MEDS: DELTASONE 20 MG PO SCH ×2 (09:29→22:11)
[2016-05-07] MEDS: ROCEPHIN 1 Gm-D5w 50 ml Bag** 50 ML IV SCH (20:30)
[2016-05-07] MEDS: Zithromax 500 MG/ 250 ML NaCl Premix 250 ML IV SCH (21:05)
[2016-05-07] MEDS: XANAX 1 MG PO SCH (22:12)
[2016-05-08] MEDS: PROVENTIL 2.5 MG/3 ML NEB IH SCH ×2 (03:01→06:57)
[2016-05-08] MEDS: Sodium Chloride 0.9% 1000 ML 1,000 ML IV SCH ×2 (05:29→05:31)
[2016-05-08 05:52] LABS: BASOPHIL % 0.1 % (0.0-0.4); Granulocytes % 90.6 % (36.0-66.0); Lymphocytes % 3.5 % (24.0-44.0); Mean Cell Volume 100.6 fl (78-100); Mean Platelet Volume 10.2 fl (6-9.5); Monocytes % 5.8 % (0.0-12.0); Platelet Count 237 K/mm3 (150-450); Red Blood Count 3.26 M/mm3 (4.1-5.6); Red Cell Distribution Width 13.9 % (11.5-14.0); White Blood Count 17.2 K/mm3 (4.0-10.5)
[2016-05-08 05:57] LABS: Mean Corpuscular Hemoglobin 31.5 pg (26-32)
[2016-05-08 06:06] LABS: ANION GAP 7.8 MEQ/L (5-15); BLOOD UREA NITROGEN 19 mg/dL (9-20); CHLORIDE 111 mEq/L (98-107); Glucose 134 MG/DL (70-110); Potassium 4.2 mEq/L (3.5-5.1); SODIUM 146 mEq/L (136-145)
[2016-05-08] MEDS: Advair Hfa 230/21 Mcg COMMON CANISTER IH SCH (06:57)
[2016-05-08] MEDS: Spiriva 18 Mcg/Cap Inhaler IH SCH (06:57)
[2016-05-08 07:41] VITALS: BP 124/59; PULSE 92; O2SAT 97
--- NOTE | 2016-05-08 08:33 | PCM.DCORD ---
- Discharge Discharge Date: 05/08/16 Disposition: Home, Self-Care Condition: Good Prescriptions: New Prednisone 20 mg [Deltasone 20 mg] 20 mg PO UD #10 tablet Magnesium Oxide 400 mg [Mag-Ox 400] 400 mg PO DAILY #30 tablet Cefdinir [Omnicef] 300 mg PO BID #14 capsule Tiotropium [place] Inhaler [Spiriva 18 Mcg/Cap Inhaler] 1 ea IH DAILY # 30 inh Azithromycin 250 mg [Zithromax 250 MG TABLET] 250 mg PO DAILY #2 tablet Budesonide/Formoterol Fumarate [Symbicort 160-4.5 Mcg Inhaler] 2 puff IH BID #1 hfa.aer.ad Continue Albuterol 2.5 mg/3 ml Neb [Proventil 2.5 mg/3 ml Neb] 2.5 mg IH HS Albuterol Sulfate [Proair Hfa] 8.5 gm IH BID Alprazolam [Xanax 0.5 mg] 0.5 mg PO TID Hydrocodone Bit/Acetaminophen [Hydrocodon-Acetaminophen 5-325] 1 each PO TID Follow up with: MONTANA THOMAS [Primary Care Provider] - SHANICE MORA [ACTIVE STAFF] - 1 Week Forms: Patient Portal Information
[2016-05-08] MEDS: xanAX 0.5 MG PO SCH (08:56)
[2016-05-08] MEDS: NORCO 5/325 MG PO SCH (08:56)
[2016-05-08] MEDS: DELTASONE 20 MG PO SCH (08:56)
[2016-05-08] MEDS: MAG-OX 400 PO SCH (08:57)
--- NOTE | 2016-05-11 10:45 | DS ---
DISCHARGE DIAGNOSES: 1) CHRONIC OBSTRUCTIVE PULMONARY DISEASE EXACERBATION. 2) ANXIETY. 3) MULTIPLE LUNG NODULES ON CT. 4) ELEVATED D-DIMER. 5) HYPERGLYCEMIA. DISCHARGE PHYSICAL EXAMINATION: VITALS: Temperature current 97.7F, temperature max 97.9F, heart rate 86 to 98, respiratory rate 18 to 20, blood pressure 124 to 140 over 59 to 78, weight 55.1 kg. Oxygen saturation 96 to 97% on 2 liters nasal cannula. GENERAL: The patient is a pleasant talkative man sitting up in no acute distress. CVS: He has a regular rate and rhythm. No murmurs, gallops or rubs are appreciated. CHEST: Clear to auscultation bilaterally. No crackles or wheezes. He had equal breath sounds no retractions. ABDOMEN: Soft, nontender, nondistended with normal bowel sounds. EXTREMITIES: No clubbing, cyanosis or edema. SKIN: Warm, dry and intact. HOSPITAL COURSE: 1) CHRONIC OBSTRUCTIVE PULMONARY DISEASE EXACERBATION: He was admitted and placed on ceftriaxone and azithromycin, these were continued during his hospital stay. He was also first started on IV steroids and these were changed to oral steroids on 05/07/2016. He was continued on oxygen and reports that he is 92 to 93% when he is off oxygen. Will continue this with breathing treatments. It looks like from the respiratory therapy notes that he has used Advair which we used to substitute for Symbicort here. He was started on Spiriva at discharge and plan to finish out a ten day course with antibiotics with Cefdinir 300 mg p.o. b.i.d. for seven more days as well as azithromycin 250 mg p.o. daily for two days, prednisone 20 mg tablet 1 tablet p.o. b.i.d. for two days and then one tablet p.o. daily for six days, started on Spiriva 1 puff daily, and Symbicort 160 mcg 2 puffs b.i.d., will continue with Albuterol as needed at home. I am going to have him follow up with the printed circuit designer due to his severe chronic obstructive pulmonary disease along with follow up of the lung nodules seen no his chest CT that was used to rule out for acute pulmonary embolism and his D-dimer was elevated. 2) ANXIETY: His anxiety was well controlled during his hospitalization. 3) MULTIPLE LUNG NODULES ON CT: He had two nodules and will plan to get a CT scan in three months and also have him see Dr. Ashvin Kulkarni to see if he would like to do anything else. 4) ELEVATED D-DIMER: Due to the acuteness of his illness, I checked a D-dimer and it was elevated. CT scan was checked and was negative for pulmonary embolism. 5) HYPERGLYCEMIA: His hemoglobin A1C was within normal limits. I believe the hyperglycemia is probably due to his steroids. DISCHARGE MEDICATIONS: FOLLOW UP: DISPOSITION: The patient was discharged to home in fair condition, to resume home medications as well as take the antibiotics and prednisone as above, to follow up with me in the clinic in one week.
== END 2016-05-08 10:10 | disposition home or self-care (01) ==
LOC: ED 19:00 → MED SURG 20:37
PROVIDERS: ADMIT Internal Medicine; ATTEND Internal Medicine
DX: J44.1 Chronic obstructive pulmonary disease with (acute) exacerbation (principal); F41.9 Anxiety disorder, unspecified; R91.8 Other nonspecific abnormal finding of lung field; R79.1 Abnormal coagulation profile; R73.9 Hyperglycemia, unspecified; Z79.899 Other long term (current) drug therapy
CPT/HCPCS: 36000; 36415; 36600; 71010; 71260; 80048; 80053; 80307; 81000; 82150; 82375; 82803; 83036; 83690; 83735; 83880; 84484; 85025; 85379; 85610; 85730; 86308; 87040; 87070; 87077; 87430; 87631; 93005; 93041; 93268; 94640; 94760; 96360; 96365; 96367; 96374; 99285; A9270; G0378; J0456; J0696; J2920; J2930

== ENCOUNTER 2017-10-06 08:01 | Observation (INO) | payer MEDICARE ==
[2017-10-06] MEDS ORDERED: DUONEB 0.5-3 MG/3 ml Neb IH ONE ×3 (08:14→10:55)
--- NOTE | 2017-10-06 08:27 | ERPHSYRPT ---
- History of Present Illness Time Seen by Provider: 10/06/17 08:22 Source: patient, EMS Exam Limitations: no limitations Patient Subjective Stated Complaint: increasing sob over the past four days. became more sob at 0400 today. used neb at home without relief. Triage Nursing Assessment: to room per ems cot. skin w/d, color normal, resp slightly labored. is on oxygen at 3L n/c per ems. breath sounds diminshed throughout. Physician History: patient with history of COPD, states he had increased shortness of breath and palpitation earlier this morning getting ready for shower. Patient noted increase sinus drainage over the past 4-5 days along with dry cough. Patient did use his nebulizer prior to calling EMS. Patient also stated that he became very anxious and was hyperventilatin at the time. Patient denied any chest/ abdominal pain, fever, chills, nausea, vomiting, diaphoresis, dizziness or weakness. Patient has been doing well, last requiring steroids 2 years ago. Patient states that he still smokes one to 2 cigarettes per day. Patient was given Solu-Medrol and DuoNeb per EMS and patient states he feels much better after treatment. Patient does not normally use oxygen at home Timing/Duration: today Activities at Onset: other (getting ready for shower) Severity of Dyspnea-Max: moderate Severity of Dyspnea-Current: mild Possible Cause: occasional episodes Modifying Factors: Improves With: activity (worsens), albuterol nebulizer ( improves) Associated Symptoms: intermittent, anxiety, wheezing, heart racing, No chest pain/discomfort, No fever, No lightheadedness, No dizziness, No heaviness, No lightheadedness, No painful breathing, No productive cough, No tightness International travel in last 2 weeks: No Allergies/Adverse Reactions: No Known Drug Allergies Allergy (Verified 10/06/17 08:14) Home Medications: ALPRAZolam [Xanax 0.5 mg] 0.5 mg PO BID 05/05/16 [History] Albuterol 2.5 mg/3 ml Neb [Proventil 2.5 mg/3 ml Neb] 2.5 mg IH HS [History] Albuterol Sulfate [Proair Hfa] 8.5 gm IH BID 05/05/16 [History] Hydrocodone Bit/Acetaminophen [Hydrocodon-Acetaminophen 5-325] 1 each PO DAILY 05/05/16 [History] Hx Tetanus, Diphtheria Vaccination/Date Given: No Hx Influenza Vaccination/Date Given: Yes Hx Pneumococcal Vaccination/Date Given: Yes - Review of Systems Constitutional: No Fever, No Chills Eyes: No Symptoms Ears, Nose, & Throat: Nose Congestion, Nose Discharge, Sinus Drainage Respiratory: Cough (dry), No Dyspnea Cardiac: Palpitations, No Chest Pain, No Edema, No Syncope Abdominal/Gastrointestinal: No Abdominal Pain, No Nausea, No Vomiting, No Diarrhea Genitourinary Symptoms: No Dysuria Musculoskeletal: No Back Pain, No Neck Pain Skin: No Rash Neurological: No Dizziness, No Focal Weakness, No Sensory Changes Psychological: No Symptoms Endocrine: No Symptoms Hematologic/Lymphatic: No Symptoms Immunological/Allergic: No Symptoms All Other Systems: Reviewed and Negative - Past Medical History Pertinent Past Medical History: Yes Neurological History: No Pertinent History Cardiac History: No Pertinent History Respiratory History: COPD, Emphysema Endocrine Medical History: No Pertinent History Musculoskeletal History: No Pertinent History - Past Surgical History Past Surgical History: No - Social History Smoking Status: Current every day smoker How long have you smoked: 50 Exposure to second hand smoke: Yes Drug Use: none Patient Lives Alone: No - Nursing Vital Signs Nursing Vital Signs: Initial Vital Signs Temperature 98.9 F 10/06/17 08:02 Pulse Rate 80 10/06/17 08:02 Respiratory Rate 22 10/06/17 08:02 Blood Pressure 170/88 10/06/17 08:02 O2 Sat by Pulse Oximetry 100 10/06/17 08:02 Pain Scale Pain Intensity 0 - Physical Exam General Appearance: no apparent distress, alert Eye Exam: PERRL/EOMI Ears, Nose, Throat Exam: hearing grossly normal, normal ENT inspection Neck Exam: normal inspection, supple Respiratory Exam: diminished breath sounds, wheezing (iintermittent throughout lung cord[place]) Cardiovascular/Chest Exam: normal heart sounds, regular rate/rhythm Abdominal/Gastrointestinal Exam: soft, No tenderness, No distention, No mass Extremity Exam: non-tender, normal range of motion, normal inspection, no calf tenderness, no pedal edema Peripheral Pulses Exam: dorsalis-pedis (R): 2+, dorsalis-pedis (L): 2+ Neurologic Exam: alert, oriented x 3, cooperative, front end assistant II-XII nml as tested, sensation nml, No motor deficits Skin Exam: normal color, warm, No dry SpO2 Interpretation: hypoxic SpO2: 100 Oxygen Delivery: Nasal Cannula - Course Nursing assessment & vital signs reviewed: Yes EKG Interpreted by Me: RATE (64), Sinus Rhythm, NORMAL AXIS, Non-specific ST Changes, Other (similar to previous EKG on 05/05) - Radiology Exams Chest X-ray Interpretation: Teleradiologist Report, Negative (hyperinflation with chronic COPD features), No Pneumonia Ordered Tests: Active Orders 24 hr Category Date Time Status Inweaver STAT Care 10/06/17 08:15 Active EKG-ER Only STAT Care 10/06/17 08:14 Active IV Insertion STAT Care 10/06/17 08:14 Active Oxygen-ED Only NASAL CANNULA 2 lpm Care 10/06/17 08:14 Active CHEST 1 VIEW (PORTABLE) Stat Exams 10/06/17 08:15 Completed CBC W DIFF Stat Lab 10/06/17 08:40 Completed CMP Stat Lab 10/06/17 08:40 Completed NT PRO BNP Stat Lab 10/06/17 08:40 Completed TROPONIN Stat Lab 10/06/17 08:40 Completed Respiratory Nebulizer STAT RT 10/06/17 08:16 Completed Medication Summary Generic Name Dose Route Start Last Admin Trade Name Freq PRN Reason Stop Dose Admin Azithromycin 500 mg in 250 mls @ 250 mls/hr 10/06/17 09:54 10/06/17 09:56 Zithromax 500 Mg/ 250 Ml Nacl Premix IV 10/06/17 10:53 250 mls/hr STAT STA 250 mls/hr Administration Discontinued Medications Generic Name Dose Route Start Last Admin Trade Name Freq PRN Reason Stop Dose Admin Albuterol/Ipratropium 3 ml 10/06/17 08:14 10/06/17 08:40 Duoneb 0.5-3 Mg/3 Ml Neb IH 10/06/17 08:15 3 ml STAT ONE Administration Albuterol/Ipratropium Confirm 10/06/17 08:40 Duoneb 0.5-3 Mg/3 Ml Neb Administered 10/06/17 08:41 Dose 3 ml IH .STK-MED ONE Lorazepam 1 mg 10/06/17 09:58 10/06/17 09:59 Ativan 1 Mg PO 10/06/17 09:59 1 mg STAT ONE Administration Lab/Rad Data: Laboratory Result Diagrams 10/06/17 08:40 10/06/17 08:40 Laboratory Results 10/06/17 10/06/17 10/06/17 Range/Units 08:40 08:40 08:40 WBC 7.3 (4.0-10.5) K/mm3 RBC 4.48 (4.1-5.6) M/mm3 Hgb 14.7 (12.5-18.0) gm/dl Hct 43.0 (42-50) % MCV 96.0 (78-100) fl MCH 32.8 H (26-32) pg MCHC 34.2 (32-36) g/dl RDW 13.2 (11.5-14.0) % Plt Count 252 (150-450) K/mm3 MPV 10.3 H (6-9.5) fl Gran % 59.0 (36.0-66.0) % Eos # (Auto) 0.16 (0-0.5) Absolute Lymphs (auto) 2.22 (1.0-4.6) Absolute Monos (auto) 0.58 (0.0-1.3) Lymphocytes % 30.4 (24.0-44.0) % Monocytes % 7.9 (0.0-12.0) % Eosinophils % 2.2 (0.00-5.0) % Basophils % 0.5 (0.0-0.4) % Absolute Granulocytes 4.30 (1.4-6.9) Basophils # 0.04 (0-0.4) Sodium 142 (137-145) mmol/L Potassium 4.0 (3.5-5.1) mmol/L Chloride 105 (98-107) mmol/L Carbon Dioxide 27 (22-30) mmol/L Anion Gap 13.4 (5-15) MEQ/L BUN 17 (9-20) mg/dL Creatinine 0.81 (0.66-1.25) mg/dL Estimated GFR > 60.0 ML/MIN Glucose 94 (74-106) mg/dL Calcium 9.4 (8.4-10.2) mg/dL Total Bilirubin 0.90 (0.2-1.3) mg/dL AST 21 (17-59) U/L ALT 18 (0-50) U/L Alkaline Phosphatase 51 (38-126) U/L Troponin I < 0.012 (0.000-0.034) ng/mL NT-Pro-B Natriuret Pep 296 (0-900) pg/mL Serum Total Protein 7.1 (6.3-8.2) g/dL Albumin 4.3 (3.5-5.0) g/dL - Progress Progress: improved Air Movement: fair, good Progress Note: 10/06/17 08:30 patient was given DuoNeb in the ED, which did make patient feel better. 10/06/17 09:49 patient did feel improved, but noted decrease in O2 sat. Patient's also with increased rest as well. Discussed with : Billy (Notified about pt. and agrees to admit) Will see patient in: hospital (observation) ( immunizations at allall room ) Counseled pt/family regarding: lab results, diagnosis, rad results - Departure Time of Disposition: 09:49 Departure Disposition: Observation Clinical Impression: COPD exacerbation Condition: Stable Critical Care Time: No Referrals: [place] THOMAS [Primary Care Provider] -
[2017-10-06 08:46] LABS: BASOPHIL % 0.5 % (0.0-0.4); Basophil (Absolute #) 0.04 (0-0.4); Eosinophil % 2.2 % (0.00-5.0); Eosinophil (Absolute #) 0.16 (0-0.5); Hemoglobin 14.7 gm/dl (12.5-18.0); Lymphocyte (Absolute #) 2.22 (1.0-4.6); Lymphocytes % 30.4 % (24.0-44.0); Mean Corpuscular Hemoglobin 32.8 pg (26-32); Mean Corpuscular Hgb Concent. 34.2 g/dl (32-36); Mean Platelet Volume 10.3 fl (6-9.5); Monocyte (Absolute #) 0.58 (0.0-1.3); Monocytes % 7.9 % (0.0-12.0); Platelet Count 252 K/mm3 (150-450); Red Blood Count 4.48 M/mm3 (4.1-5.6); Red Cell Distribution Width 13.2 % (11.5-14.0); White Blood Count 7.3 K/mm3 (4.0-10.5)
--- NOTE | 2017-10-06 08:54 | XRAY ---
Indication: Short of breath. Comparison: May 05, 2016. Portable apical lordotic chest remains hyperinflated and clear again with incidental right mid lung calcified granuloma. Heart and mediastinal structures within normal limits. Bony thorax intact again with mild osteopenia and degenerative changes. Impression: Stable nonacute hyperinflated chest with chronic features.
[2017-10-06 09:03] LABS: ALBUMIN 4.3 g/dL (3.5-5.0); ALKALINE PHOSPHATASE 51 U/L (38-126); ANION GAP 13.4 MEQ/L (5-15); BLOOD UREA NITROGEN 17 mg/dL (9-20); CHLORIDE 105 mmol/L (98-107); Calcium 9.4 mg/dL (8.4-10.2); Carbon Dioxide 27 mmol/L (22-30); Creatinine 1 0.81 mg/dL (0.66-1.25); Glucose 94 mg/dL (74-106); SGOT/AST 21 U/L (17-59); SGPT/ALT 18 U/L (0-50); SODIUM 142 mmol/L (137-145); Total Protein 7.1 g/dL (6.3-8.2)
[2017-10-06 09:11] LABS: NT PRO BNP 296 pg/mL (0-900)
[2017-10-06] MEDS ORDERED: Zithromax 500 MG/ 250 ML NaCl Premix 500 MG/250 ML IVPB IV STA (09:54)
[2017-10-06] MEDS ORDERED: Zithromax 500 MG/ 250 ML NaCl Premix 500 MG/250 ML IVPB IV ONE (09:56)
[2017-10-06] MEDS ORDERED: Ativan 1 MG PO ONE (09:58)
[2017-10-06] MEDS ORDERED: Ativan 1 MG ONE (09:59)
[2017-10-06] MEDS ORDERED: Sodium Chloride 0.9% 10 ML FLUSH Syringe IV PRN (12:45)
[2017-10-06] MEDS: solu-MEDROL 125 MG IV SCH ×5 (13:33→23:57)
[2017-10-06] MEDS: Sodium Chloride 0.9% 10 ML FLUSH Syringe IV SCH ×3 (13:34→21:41)
[2017-10-06] MEDS: DUONEB 0.5-3 MG/3 ml Neb IH SCH ×3 (14:30→23:07)
[2017-10-06] MEDS: ENOXAPARIN SODIUM SQ SCH (16:40)
[2017-10-06] MEDS: Advair Hfa 230/21 Mcg COMMON CANISTER IH SCH (19:10)
[2017-10-06] MEDS: XANAX 1 MG PO SCH (21:36)
[2017-10-06] MEDS ORDERED: NORCO 5/325 MG PO ONE (22:20)
[2017-10-07] MEDS: DUONEB 0.5-3 MG/3 ml Neb IH SCH ×6 (03:16→22:55)
[2017-10-07] MEDS: solu-MEDROL 125 MG IV SCH ×4 (05:39→23:54)
[2017-10-07] MEDS: Sodium Chloride 0.9% 10 ML FLUSH Syringe IV SCH ×3 (05:43→21:44)
[2017-10-07] MEDS: Advair Hfa 230/21 Mcg COMMON CANISTER IH SCH ×2 (07:01→19:07)
--- NOTE | 2017-10-07 08:49 | HP ---
HISTORY OF PRESENT ILLNESS: This is a 71 y/o man with a history of chronic obstructive pulmonary disease, anxiety, and chronic back pain. He presented to the Emergency Room with shortness of breath. He was brought in by the ambulance. He reports that he started having some hoarse voice about 4 days ago. Recently, his air conditioner had been out for about 4 days. It is fixed now. He reports this morning he was taking a shower trying to wash his hair and got very short of breath. he was able to get out of the shower and take an albuterol nebulizer and felt a little bit better, but then started to feel worse when he was ambulating again and so he called for the ambulance to bring him to the Emergency Department. In the Emergency Department, he was found to have an O2 saturation of 86-87% when he was ambulating. They gave him breathing treatments and steroids, but he was still having shortness of breath with ambulation. The patient reports he is feeling better now than when he first came in. He reports he smokes 1 cigarette per day. He is thinking about quitting. He has had a dry cough and a hoarse voice and runny nose. No chest pain. No abdominal pain. He has been taking fluids well. REVIEW OF SYSTEMS: No rashes. No fevers. No swelling. He has had the nonproductive cough. PAST MEDICAL HISTORY: Anxiety, chronic back pain, chronic obstructive pulmonary disease. SURGICAL HISTORY: None. SOCIAL HISTORY: History of alcohol abuse, but no longer uses alcohol. He smokes 1 pack per day. Smokes 1 cigarette per day now. He smoked for the past 40 years. He is retired. 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 FAMILY HISTORY: His mother had kidney disease. His father had cancer and heart disease. HOME MEDICATIONS: Albuterol 2.5 mg nebulized q 4 h PRN, alprazolam 0.5 mg bid, hydrocodone 5 mg/acetaminophen 325 mg 1 tab PO daily, Incruse 1 puff q day, Symbicort 160 mcg/4.5 mcg 2 puffs bid, Ventolin HFA 2 puffs q 4 h PRN, Viagra 100 mg PO daily PRN. ALLERGIES: NKDA. PHYSICAL EXAMINATION: VITAL SIGNS: Temperature current 98.9, heart rate 80, respiratory rate 22, O2 saturation 100% on 3 liters nasal cannula, BP 170/88. GENERAL: The patient is lying in bed a pleasant talkative man in no acute distress. CVS: He has a regular rate and rhythm. No murmurs, gallops, or rubs are appreciated. CHEST: He has distant breath sounds bilaterally. They are equal. No crackles, no wheezes. ABDOMEN: Soft, nontender, nondistended with normal bowel sounds. EXTREMITIES: No clubbing, cyanosis, or edema. SKIN: Warm, dry, and intact. LABORATORY DATA: CBC within normal limits. CMP within normal limits. NT Pro BNP was normal at 296. Troponin was negative. Chest x-ray was read as stable, nonacute hyperinflated chest with chronic features. EKG was sinus arrhythmia with heart rate of 64. No ST or T wave changes. ASSESSMENT AND PLAN: 1. CHRONIC OBSTRUCTIVE PULMONARY DISEASE EXACERBATION. He is on O2 2-3 liters by nasal cannula. Receiving DuoNebs q 4 h PRN. Solu-Medrol 60 mg IV q 6 h. Zithromax 500 mg IV daily. Plan to also restart his home breathing medications. Will ask for Dr. Cleo Kulkarni to see the patient while he is here. 2. ANXIETY. Will continue with alprazolam 0.5 mg PO bid. We may need to increase this dose while he is in the hospital with the steroids, but will see how he does. 3. CHRONIC BACK PAIN. Will continue with hydrocodone 1 tablet daily. We have been weaning this down as an outpatient. 4. DEEP VEIN THROMBOSIS PROPHYLAXIS. Will use Lovenox 40 mg subq daily. 5. TOBACCO ABUSE. The patient was counseled that he needs to quit smoking.
--- NOTE | 2017-10-07 09:16 | CONS ---
CONSULT DATE: 10/06/17 HISTORY OF PRESENT ILLNESS: Mr. Andrews is a 71 y/o pleasant male, with history of chronic obstructive pulmonary disease, who has been hospitalized with acute onset shortness of breath. The patient reports that he got more short of breath for the last 2 weeks with the weather changing and got progressively more dyspneic while being in the shower leading to an Emergency Room visit and hospitalization. He has been diagnosed with chronic obstructive pulmonary disease for the last 8 years or so. Patient still unfortunately continues to smoke 1 cigarette a day. He denies any significant cough. His effort tolerance has been fairly well preserved. He uses bronchodilators along with Symbicort. He has had 1 episode of pneumonia in 2016. Patient denies any cardiac problems. PAST MEDICAL HISTORY: Positive for history of chronic obstructive pulmonary disease, anxiety, and arthritis. PAST SURGICAL HISTORY: No recent surgeries. PERSONAL AND SOCIAL HISTORY: Patient still smokes 1 cigarette per day. He is retired. He worked as an alcohol and tobacco counselor. ALLERGIES: ALLERGIES NOTED. CURRENT MEDICATIONS: Medications reviewed. PHYSICAL EXAMINATION: This is an elderly frail male who appears a little hoarse. Patient reports his voice changed about 3 days ago as well with upper respiratory infection like symptoms. VITAL SIGNS: Vital signs noted. HEENT: Normocephalic. Pupils are reactive. Oral exam is limited. NECK: Supple. CVS: 1st and 2nd heart sounds normal, regular rhythm. RESPIRATORY: Shows increase in AP diameter of chest. Breath sounds are diminished. ABDOMEN: Soft. No edema is present. Labs and x-rays reviewed. ASSESSMENT: 1. 71 YEAR OLD MALE ADMITTED WITH CHRONIC OBSTRUCTIVE PULMONARY DISEASE WITH EXACERBATION. 2. ACUTE BRONCHITIS. 3. HYPOXEMIA. 4. NICOTINE ADDICTION. 5. ANXIETY DISORDER. RECOMMENDATIONS: 1. Agree with present treatment. 2. Need for smoking cessation was stressed. 3. Will obtain PFT upon clinical improvement. Follow-up in office after that. 4. Will also check 2D echocardiogram to rule out pulmonary hypertension. Thank you for allowing me to participate in the care of Mr. Andrews.
[2017-10-07] MEDS: NORCO 5/325 MG PO SCH (09:58)
[2017-10-07] MEDS: xanAX 0.5 MG PO SCH (09:59)
[2017-10-07] MEDS: Zithromax 500 MG/ 250 ML NaCl Premix 500 MG/250 ML IVPB IV SCH (09:59)
[2017-10-07] MEDS: ENOXAPARIN SODIUM SQ SCH (09:59)
--- NOTE | 2017-10-07 10:03 | PCM.NOTE ---
Date and Time: 10/07/17 0959 Subjective Assessment: Patient reports he asked to have his oxygen turned up when he was coughing a lot. He states he slept about 4 hours. He denies any pain. His cough conitnues to be nonproductive. He was able to eat his breakfast. He reports his anxiety is under control. - Review of Systems Constitutional: No Symptoms Respiratory: Cough, Short Of Breath Cardiac: No Symptoms Abdominal/Gastrointestinal: No Symptoms Genitourinary Symptoms: No Symptoms Musculoskeletal: No Symptoms Skin: No Symptoms Neurological: No Symptoms Psychological: Anxiety Objective Exam General Appearance: no apparent distress, alert Neurologic Exam: alert, cooperative, normal mood/affect Skin Exam: normal color, warm, dry, No rash Respiratory Exam: lungs clear, prolonged expirations, No accessory muscle use, No crackles/rales, No rhonchi, No wheezing Cardiovascular Exam: regular rate/rhythm, normal heart sounds, No murmur, No friction rub, No gallop Gastrointestinal/Abdomen Exam: soft, normal bowel sounds, No tenderness, No distention, No mass Extremity Exam: other (no c/c/e) OBJECTIVE DATA Vital Signs: Vital Signs - 24 hr Temp Pulse Resp BP Pulse Ox 10/07/17 07:28 97.7 F 108 H 20 138/72 98 10/07/17 07:01 108 H 20 98 10/07/17 04:00 97.7 F 102 H 18 128/61 98 10/07/17 03:16 98 H 19 97 10/07/17 00:00 97.7 F 86 18 100/56 98 10/06/17 23:07 98 H 19 98 10/06/17 20:00 98.2 F 106 H 20 129/64 97 10/06/17 19:09 119 H 16 95 10/06/17 16:00 98.2 F 100 H 20 132/76 95 10/06/17 14:32 110 H 18 96 10/06/17 14:00 98.2 F 106 H 20 135/77 95 10/06/17 13:40 98.4 F 99 H 141/76 10/06/17 13:12 98.2 F 106 H 20 135/77 95 10/06/17 11:00 93 H 16 97 10/06/17 10:20 98.4 F 99 H 20 141/76 94 L 10/06/17 10:01 100 Oxygen-Last 24 hours O2 Percentage 4 Liters = 36% O2 Percentage 4 Liters = 36% O2 Percentage 4 Liters = 36% O2 Percentage 3 Liters = 32% O2 Percentage 2 Liters = 28% O2 Percentage 2 Liters = 28% O2 Percentage 2 Liters = 28% O2 Percentage 3 Liters = 32% Pain Assessment - Last Documented Pain Intensity 7 Pain Scale Used 0-10 Pain Scale Intake and Output: Intake & Output 10/05/17 10/06/17 10/07/17 10/08/17 06:59 06:59 06:59 06:59 Intake Total 1060 240 Balance 1060 240 Weight 57.6 kg Radiology Exams: Radiology Procedures Category Date Time Status CHEST 1 VIEW (PORTABLE) Stat Exams 10/06/17 08:15 Completed ECHO W/2D AND DOPPLER [US] Routine Exams 10/07/17 08:00 Taken Assessment/Plan (1) COPD exacerbation Current Visit: Yes Status: Acute Assessment & Plan: Continue IV steroids, will start to wean down; continue oxygen; continue breathing treatments; Dr. Kulkarni saw him and I appreciate his input. Continue azithromycin Day 2. Code(s): J44.1 - CHRONIC OBSTRUCTIVE PULMONARY DISEASE W (ACUTE) EXACERBATION (2) Anxiety Current Visit: No Status: Acute Assessment & Plan: Continue home medication. Code(s): F41.9 - ANXIETY DISORDER, UNSPECIFIED (3) Chronic back pain Current Visit: Yes Status: Acute Assessment & Plan: Weaning down on hydrocodone as an outpatient. He is currently on tablet once a day as needed for pain. Code(s): M54.9 - DORSALGIA, UNSPECIFIED; G89.29 - OTHER CHRONIC PAIN
[2017-10-07] MEDS: XANAX 1 MG PO SCH (21:44)
[2017-10-08] MEDS: DUONEB 0.5-3 MG/3 ml Neb IH SCH ×2 (02:53→06:35)
[2017-10-08] MEDS: solu-MEDROL 125 MG IV SCH (06:02)
[2017-10-08] MEDS: Sodium Chloride 0.9% 10 ML FLUSH Syringe IV SCH (06:02)
[2017-10-08] MEDS: Advair Hfa 230/21 Mcg COMMON CANISTER IH SCH (06:35)
[2017-10-08 06:41] VITALS: PULSE 109
[2017-10-08 07:15] VITALS: BP 132/70
[2017-10-08 07:34] VITALS: O2SAT 95
--- NOTE | 2017-10-08 08:32 | PCM.DCORD ---
- Discharge Discharge Date: 10/08/17 Disposition: Home, Self-Care Condition: Good Prescriptions: New Azithromycin 250 mg PO DAILY #2 tablet Prednisone 20 mg [Deltasone 20 mg] 20 mg PO UD #18 tablet Continue Albuterol 2.5 mg/3 ml Neb [Proventil 2.5 mg/3 ml Neb] 2.5 mg IH HS Albuterol Sulfate [Proair Hfa] 8.5 gm IH BID ALPRAZolam [Xanax 0.5 mg] 0.5 mg PO BID Hydrocodone Bit/Acetaminophen [Hydrocodon-Acetaminophen 5-325] 1 each PO DAILY Budesonide/Formoterol Fumarate [Symbicort 160-4.5 Mcg Inhaler] 2 puff IH BID #1 hfa.[email or web address] Additional Instructions: Continue symbicort at home. I will send an outpatient order from my clinic for Advair as requested by Juliana to see if we can get this approved with his insurance company. Follow up with: SHANICE MORA [ACTIVE STAFF] - 1 Week (FOLLOW UP IN 2 WEEKS ON D/C) [place] THOMAS [Primary Care Provider] - 1 Week
[2017-10-08] MEDS: NORCO 5/325 MG PO SCH (09:24)
[2017-10-08] MEDS: xanAX 0.5 MG PO SCH (09:24)
[2017-10-08] MEDS: Zithromax 500 MG/ 250 ML NaCl Premix 500 MG/250 ML IVPB IV SCH (09:30)
[2017-10-08] MEDS: ENOXAPARIN SODIUM SQ SCH (09:30)
--- NOTE | 2017-10-12 08:27 | ECHO ---
Transthoracic echocardiographic examination and color Doppler was done on 10/07/2017. INDICATION: Shortness of breath. IMPRESSION: 1) NO REGIONAL WALL MOTION ABNORMALITY. ESTIMATED GLOBAL LEFT VENTRICULAR EJECTION FRACTION AROUND 60%. 2) TRACE TRICUSPID REGURGITATION. RIGHT VENTRICULAR SYSTOLIC PRESSURE OF 46 MM OF MERCURY. The left ventricle is visualized and demonstrated adequate motion of all the segments. Estimated global left ventricular ejection fraction around 60%. The left ventricular thickness is normal. The mitral valve is seen and this opens adequately. No significant mitral regurgitation is seen. The aortic valve opens adequately. There is no significant gradient across the left ventricular outflow tract. The right side chambers are mildly dilated. There is trace tricuspid regurgitation. The right ventricular systolic pressure of 46 mm of Mercury.
--- NOTE | 2017-10-12 09:12 | DS ---
DISCHARGE DIAGNOSES: 1) CHRONIC OBSTRUCTIVE PULMONARY DISEASE EXACERBATION. 2) ANXIETY. 3) CHRONIC BACK PAIN. DISCHARGE PHYSICAL EXAMINATION: VITALS: Temperature current 98.0F, temperature max 98.1F, heart rate 98 to 109, respiratory rate 17 to 18, blood pressure 124 to 142 over 62 to 71, weight 57.6 kg. Oxygen saturation 95% on room air. The patient reports that he has been on room air overnight. GENERAL: The patient is a pleasant talkative man sitting up in no acute distress. CVS: He has a regular rate and rhythm. No murmurs, gallops or rubs are appreciated. CHEST: Clear to auscultation bilaterally. No crackles or wheezes are appreciated. He has distant breath sounds bilaterally with good air exchange. ABDOMEN: Soft, nontender, nondistended with normal bowel sounds. EXTREMITIES: No clubbing, cyanosis or edema. SKIN: Warm, dry and intact. HOSPITAL COURSE: 1) CHRONIC OBSTRUCTIVE PULMONARY DISEASE EXACERBATION: He was given DuoNeb every four hours while here in the hospital as well as IV Solu-Medrol and azithromycin IV. Geochemical Manager, Dr. Ashvin Kulkarni saw him while he was here. He required oxygen until his last night here. He reports he has been able to ambulate and kept his oxygen saturation up to 95%. He desires to go home. I plan to discharge him with his current Albuterol at home as well as Symbicort. He reports he has Incruse at home but does not feel like it helps. Send him with prednisone as a taper 20 mg tablet daily two tablets daily for three days and two tablets daily for three days and one tablet daily for three days and azithromycin 250 mg p.o. daily for two more days to complete a five day course of antibiotics. He will follow up with Dr. Kulkarni and reports Dr. Kulkarni plans to do PFT as an outpatient. 2) ANXIETY: This is well controlled during his hospitalization. 3) CHRONIC BACK PAIN: This was stable during his hospitalization. DISPOSITION: The patient was discharged to home in good condition. He knows his Albuterol is always his rescue medication and if he is having trouble after using this to contact 911 as he did at the start of this hospital visit.
== END 2017-10-08 09:30 | disposition home or self-care (01) ==
LOC: ED 08:01 → MED SURG 10:20
PROVIDERS: ADMIT Internal Medicine; ATTEND Internal Medicine
DX: J44.1 Chronic obstructive pulmonary disease with (acute) exacerbation (principal); J20.9 Acute bronchitis, unspecified; R09.02 Hypoxemia; Z72.0 Tobacco use; F41.9 Anxiety disorder, unspecified; M54.9 Dorsalgia, unspecified; G89.29 Other chronic pain; F45.42 Pain disorder with related psychological factors
CPT/HCPCS: 36415; 71045; 80053; 83880; 84484; 85025; 93005; 93041; 93306; 94150; 94640; 94760; 96365; 99285; G0378; 94060; J0456; J1650; J2930; A9270-GY

== ENCOUNTER 2018-05-16 09:11 | Day surgery (SDC) | payer MEDICARE ==
[~2018-05-16 09:11] MED LIST: Lactated Ringers 1,000 ML IV ONE; Lactated Ringers 1,000 ML IV SCH
[2018-05-16] MEDS ORDERED: DIPRIVAN 200 MG/20 ML IV ONE (09:12)
--- NOTE | 2018-05-16 09:23 | HP ---
DATE OF SURGERY: 05/16/2018 HISTORY OF PRESENT ILLNESS: The patient is a 72 year-old with no prior colonoscopy, no gross bloody stools, no pain and no change in bowel movements. Family history negative for colon cancer. Positive FIT (fecal immunochemical testing). He is in need of colonoscopy. PAST MEDICAL HISTORY: Chronic obstructive pulmonary disease. PAST SURGICAL HISTORY: He denied prior colonoscopy. MEDICATIONS: Advair, ProAir, Xanax. ALLERGIES: NKDA. FAMILY HISTORY: Brain cancer. Negative for colon cancer. SOCIAL HISTORY: One cigarette a day. Denies alcohol abuse. REVIEW OF SYSTEMS: Twelve systems reviewed. No chest pain or palpitations other systems negative or noncontributory as above and per preadmission questionnaire. PHYSICAL EXAMINATION: GENERAL: No acute distress. HEENT: Sclerae nonicteric. NECK: No JVD. CHEST: Equal excursion, nonlabored breathing. CVS: Regular rate and rhythm. ABDOMEN: Soft. No peritoneal signs. EXTREMITIES: No significant edema. NEURO: Alert, moving extremities symmetrically. No gross motor deficits noted. IMPRESSION: History of question of positive FIT test. I feel the patient would benefit from colonoscopy for further evaluation as he has not had a prior screening colonoscopy. I feel he is a candidate. He is shown the risk sheet and explained in detail including but not limited to bleeding or infection, risk of bowel injury or perforation possibly requiring open procedure, risk of missed or nondiagnosis or incomplete exam possibly requiring barium enema, other studies or procedures, general risk of anesthesia or sedation but not limited to. He understands and agrees to the planned procedure and will proceed with outpatient colonoscopy.
[2018-05-16 11:14] VITALS: O2SAT 98
[2018-05-16 11:57] VITALS: BP 136/83; PULSE 97
[2018-05-16] MEDS ORDERED: Lactated Ringers 1,000 ML IV ONE (12:02)
--- NOTE | 2018-05-16 13:21 | OP ---
SURGERY DATE/TIME: 05/16/2018 1009 PREOPERATIVE DIAGNOSIS: History of positive FIT test, need for colonoscopy. POSTOPERATIVE DIAGNOSES: 1) A 7 or 8 mm colon polyp. 2) Small raised lesion versus early polyp's transverse, descending, sigmoid and rectum. 3) Diverticulosis. 4) Small internal and external hemorrhoids. PROCEDURES: 1) Colonoscopy to cecum with hot snare polypectomy sigmoid colon polyp with submucosal injection ink spot tattooing of location. 2) Hot biopsy small raised lesion transverse colon, descending colon, sigmoid colon and rectum. SURGEON: Dr. Martin Malik. ANESTHESIA: MAC. ESTIMATED BLOOD LOSS: Minimal. INDICATIONS: As noted above. Risks and benefits explained in detail but not limited to and consent obtained. DESCRIPTION OF PROCEDURE AND FINDINGS: The patient is taken to the operating room. MAC anesthesia introduced. After official time out and no disagreement with planned procedure, digital rectal exam did not reveal any rectal masses. He did have some small internal and external hemorrhoids. Video colonoscope inserted and passed up the tortuous sigmoid, descending, transverse and ascending colon around to the cecum. Appendiceal orifice and valve well visualized. Prep overall was fair with a little bit of liquidy stool that was suctioned irrigated clear. The scope is slowly and carefully withdrawn. There are no signs of any large polyps, masses or obstructing lesions in the right colon. He did have some small raised lesion transverse, descending, sigmoid and rectum removed with hot biopsy forceps. He did have some diverticulosis. He did have a 7 or 8 mm pedunculated polyp in the sigmoid colon about 25 cm that was removed with hot snare polypectomy. This location was marked with submucosal injection with ink spot tattooing to fracisco the location. Otherwise he had some small internal and external hemorrhoids. There were no signs of any large polyps, masses or obstructing lesions. Findings discussed with the family out in the waiting area. He was transferred to the recovery room in stable condition postoperatively.
== END 2018-05-16 11:58 | disposition home or self-care (01) ==
LOC: SDC 09:11
PROVIDERS: ATTEND Surgery
DX: K63.5 Polyp of colon (principal); D12.5 Benign neoplasm of sigmoid colon; K62.1 Rectal polyp; K57.30 Diverticulosis of large intestine without perforation or abscess without bleeding; K64.4 Residual hemorrhoidal skin tags; K64.8 Other hemorrhoids
CPT/HCPCS: 99100; J2704

== ENCOUNTER 2018-06-19 07:42 | Inpatient (IN) | payer MEDICARE ==
[2018-06-19] MEDS ORDERED: Zithromax 500 MG/ 250 ML NaCl Premix 500 MG/250 ML IVPB IV STA (07:43)
[2018-06-19] MEDS ORDERED: DUONEB 0.5-3 MG/3 ml Neb IH ONE ×2 (07:43→08:24)
[2018-06-19] MEDS ORDERED: ROCEPHIN 1 Gm-D5w 50 ml Bag** 1 G/50 ML IVPB IV STA (07:43)
[2018-06-19] MEDS ORDERED: PULMICORT 0.5 MG/2 ML RESPULES IH STA (07:46)
[2018-06-19] MEDS ORDERED: APRESOLINE 20 MG/ML INJ IV ONE (07:47)
[2018-06-19] MEDS ORDERED: ROCEPHIN 1 Gm-D5w 50 ml Bag** 1 G/50 ML IVPB IV ONE (08:00)
[2018-06-19] MEDS ORDERED: APRESOLINE 20 MG/ML INJ ONE (08:00)
[2018-06-19 08:11] LABS: A-aADO2 49; ABG HEMOGLOBIN 14.4; ABG POTASSIUM 4.2 (3.5-5.1); ARTERIAL BLD GAS O2 SATURATION 100.6 % (95-100); ARTERIAL BLOOD GAS FIO2 85 %; ARTERIAL BLOOD GAS PCO2 66 mmHg (35-45); ARTERIAL BLOOD GAS PO2 475 mmHg (75-100); ARTERIAL BLOOD GAS VENT MODE BiPAP; ARTERIAL BLOOD GAS pH 7.29 (7.35-7.45); CARBOXYHEMOGLOBIN 2.1 % THgb (0.0-6.9); HCO3- 31.7 (22-28); HGB O2 SAT 97.4 g/dF (94-100); Methhemoglobin 1.1 % (1.4-1.5); paO2 pAO1 0.91
[2018-06-19 08:12] LABS: ABG SITE RIGHT BRACHIAL; ALLEN TEST OK? YES
[2018-06-19 08:12] LABS: BASOPHIL % 0.3 % (0.0-0.4); Basophil (Absolute #) 0.03 (0-0.4); Eosinophil % 3.1 % (0.00-5.0); Eosinophil (Absolute #) 0.27 (0-0.5); Granulocyte Absolute (ANC) 6.71 (1.4-6.9); Granulocytes % 76.9 % (36.0-66.0); Hematocrit 48.6 % (42-50); Hemoglobin 15.5 gm/dl (12.5-18.0); Lymphocyte (Absolute #) 0.94 (1.0-4.6); Lymphocytes % 10.8 % (24.0-44.0); Mean Corpuscular Hemoglobin 31.3 pg (26-32); Mean Corpuscular Hgb Concent. 31.9 g/dl (32-36); Mean Platelet Volume 11.3 fl (6-9.5); Monocyte (Absolute #) 0.78 (0.0-1.3); Monocytes % 8.9 % (0.0-12.0); Platelet Count 192 K/mm3 (150-450); Red Blood Count 4.96 M/mm3 (4.1-5.6); Red Cell Distribution Width 13.8 % (11.5-14.0); White Blood Count 8.7 K/mm3 (4.0-10.5)
[2018-06-19 08:16] LABS: ALBUMIN 4.7 g/dL (3.5-5.0); ALKALINE PHOSPHATASE 90 U/L (38-126); ANION GAP 13.3 MEQ/L (5-15); BLOOD UREA NITROGEN 15 mg/dL (9-20); CHLORIDE 102 mmol/L (98-107); Calcium 9.3 mg/dL (8.4-10.2); Carbon Dioxide 32 mmol/L (22-30); Creatinine 1 0.67 mg/dL (0.66-1.25); Glucose 95 mg/dL (74-106); Potassium 4.5 mmol/L (3.5-5.1); SGOT/AST 30 U/L (17-59); SGPT/ALT 30 U/L (0-50); SODIUM 143 mmol/L (137-145); Total Protein 8.2 g/dL (6.3-8.2)
[2018-06-19] MEDS ORDERED: Zofran 4 MG/2 ML VIAL ONE (08:16)
[2018-06-19] MEDS ORDERED: Zofran 4 MG/2 ML VIAL IV ONE (08:21)
[2018-06-19] MEDS ORDERED: PULMICORT 0.5 MG/2 ML RESPULES IH ONE (08:31)
[2018-06-19] MEDS ORDERED: Zithromax 500 MG/ 250 ML NaCl Premix 500 MG/250 ML IVPB IV ONE (08:36)
[2018-06-19 08:41] LABS: INFLUENZA A POSITIVE (NEGATIVE); INFLUENZA B NEGATIVE (NEGATIVE); RESPIRATORY SYNCTIAL VIRUS NEGATIVE (Negative)
[2018-06-19] MEDS ORDERED: Tamiflu 75MG Capsule PO ONE ×2 (08:42→08:47)
--- NOTE | 2018-06-19 08:57 | ERPHSYRPT ---
- History of Present Illness Source: patient Exam Limitations: no limitations Patient Subjective Stated Complaint: Pt c/o sudden onset of sob at 0100 today. denies recent illness. denies fever. Reports hx copd. Triage Nursing Assessment: pink/warm/dry, resp labored and using abd muscles, able to speak in short phrases only. pt wearing non-rebreather placed by ems. a& ox4, gait not observed. pt appears anxious. Physician History: Pt is a 72 y/o male with a h/o COPD that presented to the ED via EMS, secondary to SOB. Pt states, woke up at 1:00AM with severe dyspnea. Pt denies F/C/S. No chest discomfort or palpitations. No abdominal pain. has nausea. Pt did get the flu vaccine this year. Timing/Duration: today Activities at Onset: sleep Severity of Dyspnea-Max: severe Severity of Dyspnea-Current: severe Possible Cause: occasional episodes Modifying Factors: Improves With: albuterol inhaler, albuterol nebulizer Associated Symptoms: cough, wheezing, weakness Allergies/Adverse Reactions: No Known Drug Allergies Allergy (Verified 06/19/18 07:46) Home Medications: Albuterol Sulfate [Proair Hfa] 8.5 gm IH Q12H PRN PRN 05/11/18 [History] Alprazolam [Xanax] 0.5 mg PO QID 05/11/18 [History] Fluticasone/Salmeterol 115/21* [Advair Hfa 115/21 Mcg Inhaler] 2 puff IH BIDRT 05/11/18 [History] Hx Tetanus, Diphtheria Vaccination/Date Given: Yes Hx Influenza Vaccination/Date Given: Yes Hx Pneumococcal Vaccination/Date Given: Yes Immunizations Up to Date: Yes - Review of Systems Constitutional: No Fever, No Chills Eyes: No Symptoms Ears, Nose, & Throat: No Symptoms Respiratory: Cough, Dyspnea, Dyspnea on Exertion (ZARATE), Wheezing Cardiac: No Chest Pain, No Edema, No Syncope Abdominal/Gastrointestinal: No Abdominal Pain, No Nausea, No Vomiting, No Diarrhea Genitourinary Symptoms: No Dysuria Musculoskeletal: No Back Pain, No Neck Pain Neurological: No Dizziness, No Focal Weakness, No Sensory Changes - Past Medical History Pertinent Past Medical History: Yes Neurological History: No Pertinent History ENT History: No Pertinent History Cardiac History: No Pertinent History Respiratory History: COPD, Emphysema Endocrine Medical History: No Pertinent History Musculoskeletal History: No Pertinent History GI Medical History: No Pertinent History History: No Pertinent History Psycho-Social History: Anxiety Male Reproductive Disorders: No Pertinent History - Past Surgical History Past Surgical History: Yes Neuro Surgical History: No Pertinent History Cardiac: No Pertinent History Respiratory: No Pertinent History Gastrointestinal: No Pertinent History Genitourinary: No Pertinent History Musculoskeletal: Other Male Surgical History: No Pertinent History Other Surgical History: Had bursa drained in surgery right elbow "about a two hour thing at [facility]". - Social History Smoking Status: Current every day smoker How long have you smoked: 50 Exposure to second hand smoke: No Drug Use: none Patient Lives Alone: No - Nursing Vital Signs Nursing Vital Signs: Initial Vital Signs Pulse Rate 132 H 06/19/18 07:48 Respiratory Rate 28 H 06/19/18 07:48 Blood Pressure 198/101 06/19/18 07:48 O2 Sat by Pulse Oximetry 98 06/19/18 07:48 Pain Scale Pain Intensity 2 - Physical Exam General Appearance: severe distress Eye Exam: PERRL/EOMI Neck Exam: normal inspection, supple Respiratory Exam: respiratory distress, diminished breath sounds, accessory muscle use, wheezing Cardiovascular/Chest Exam: normal heart sounds, regular rate/rhythm Abdominal/Gastrointestinal Exam: soft, No tenderness, No distention, No mass Extremity Exam: non-tender, normal range of motion, normal inspection, no calf tenderness, no pedal edema SpO2 Interpretation: normal (On bipap) SpO2: 94 - Course Nursing assessment & vital signs reviewed: Yes EKG Interpreted by Me: RATE (133bpm), Sinus Tach Ordered Tests: Active Orders 24 hr Category Date Time Status EKG-ER Only STAT Care 06/19/18 07:43 Active IV Insertion STAT Care 06/19/18 07:43 Active CHEST 2 VIEWS (PA AND LAT) Stat Exams 06/19/18 07:44 Ordered ARTERIAL BLOOD GASES Stat Lab 06/19/18 07:43 Completed CBC W DIFF Stat Lab 06/19/18 07:55 Completed CMP Stat Lab 06/19/18 07:55 Completed D-DIMER QUANTITATION Stat Lab 06/19/18 08:35 Received TROPONIN Q3H Lab 06/19/18 07:55 Received TROPONIN Q3H Lab 06/19/18 10:45 Ordered TROPONIN Q3H Lab 06/19/18 13:45 Ordered TROPONIN Q3H Lab 06/19/18 16:45 Ordered TROPONIN Q3H Lab 06/19/18 19:45 Ordered UA W/RFX UR CULTURE Stat Lab 06/19/18 07:44 Uncollected BiPap/CPAP STAT RT 06/19/18 07:43 Active Respiratory Therapy Assessment DAILY RT 06/19/18 08:26 Active Medication Summary Discontinued Medications Generic Name Dose Route Start Last Admin Trade Name Freq PRN Reason Stop Dose Admin Albuterol/Ipratropium 3 ml 06/19/18 07:43 06/19/18 08:45 Duoneb 0.5-3 Mg/3 Ml Neb IH 06/19/18 07:44 3 ml STAT ONE Administration Albuterol/Ipratropium Confirm 06/19/18 08:24 Duoneb 0.5-3 Mg/3 Ml Neb Administered 06/19/18 08:25 Dose 3 ml IH .STK-MED ONE Budesonide 0.5 mg 06/19/18 07:46 06/19/18 08:46 Pulmicort 0.5 Mg/2 Ml Respules IH 06/19/18 07:47 0.5 mg ONCE STA Administration Hydralazine HCl 20 mg 06/19/18 07:47 06/19/18 08:03 Apresoline 20 Mg/Ml Inj IV 06/19/18 07:48 20 mg STAT ONE Administration Hydralazine HCl Confirm 06/19/18 08:00 Apresoline 20 Mg/Ml Inj Administered 06/19/18 08:01 Dose 20 mg .ROUTE .STK-MED ONE Ceftriaxone Sodium/Dextrose 1 g in 50 mls @ 100 mls/hr 06/19/18 07:43 08:36 Rocephin 1 Gm-D5w 50 Ml Bag IV 06/19/18 08:12 Infused STAT STA Infusion Azithromycin 500 mg in 250 mls @ 250 mls/hr 06/19/18 07:43 06/19/18 08:38 Zithromax 500 Mg/ 250 Ml Nacl Premix IV 06/19/18 08:42 250 mls/hr STAT STA 250 mls/hr Administration Ceftriaxone Sodium/Dextrose Confirm 06/19/18 08:00 Rocephin 1 Gm-D5w 50 Ml Bag Administered 06/19/18 08:01 Dose 1 g in 50 mls @ ud IV .STK-MED ONE Azithromycin Confirm 06/19/18 08:36 Zithromax 500 Mg/ 250 Ml Nacl Premix Administered 06/19/18 08:37 Dose 500 mg in 250 mls @ ud IV .STK-MED ONE Ondansetron HCl Confirm 06/19/18 08:16 Zofran 4 Mg/2 Ml Vial Administered 06/19/18 08:17 Dose 4 mg .ROUTE .STK-MED ONE Ondansetron HCl 4 mg 06/19/18 08:21 06/19/18 08:23 Zofran 4 Mg/2 Ml Vial IV 06/19/18 08:22 4 mg STAT ONE Administration Oseltamivir Phosphate 75 mg 06/19/18 08:42 06/19/18 08:47 Tamiflu 75mg Capsule PO 06/19/18 08:43 75 mg STAT ONE Administration Oseltamivir Phosphate Confirm 06/19/18 08:47 Tamiflu 75mg Capsule Administered 06/19/18 08:48 Dose 75 mg PO .[facility] ONE Lab/Rad Data: Laboratory Result Diagrams 06/19/18 07:55 06/19/18 07:55 Laboratory Results 06/19/18 06/19/18 06/19/18 Range/Units 07:55 07:55 07:55 WBC 8.7 (4.0-10.5) K/mm3 RBC 4.96 (4.1-5.6) M/mm3 Hgb 15.5 (12.5-18.0) gm/dl Hct 48.6 (42-50) % MCV 98.0 (78-100) fl MCH 31.3 (26-32) pg MCHC 31.9 L (32-36) g/dl RDW 13.8 (11.5-14.0) % Plt Count 192 (150-450) K/mm3 MPV 11.3 H (6-9.5) fl Gran % 76.9 H (36.0-66.0) % Eos # (Auto) 0.27 (0-0.5) Absolute Lymphs (auto) 0.94 L (1.0-4.6) Absolute Monos (auto) 0.78 (0.0-1.3) Lymphocytes % 10.8 L (24.0-44.0) % Monocytes % 8.9 (0.0-12.0) % Eosinophils % 3.1 (0.00-5.0) % Basophils % 0.3 (0.0-0.4) % Absolute Granulocytes 6.71 (1.4-6.9) Basophils # 0.03 (0-0.4) Puncture Site pCO2 (35-45) mmHg pO2 (75-100) mmHg Base Excess (-2.0-2.0) O2 Saturation (94-100) g/dF ABG pH (7.35-7.45) ABG HCO3 (22-28) ABG O2 Sat (Measured) (95-100) % Greg Test A-a Gradient a/A Ratio Hemoglobin Carboxyhemoglobin (0.0-6.9) % THgb Methemoglobin (1.4-1.5) % Potassium 4.5 (3.5-5.1) Temperature C POC O2 Flow Rate % Vent Mode Inspiratory BiPAP Expiratory BiPAP Sodium 143 (137-145) mmol/L Chloride 102 (98-107) mmol/L Carbon Dioxide 32 H (22-30) mmol/L Anion Gap 13.3 (5-15) MEQ/L BUN 15 (9-20) mg/dL Creatinine 0.67 (0.66-1.25) mg/dL Estimated GFR > 60.0 ML/MIN Glucose 95 (74-106) mg/dL Calcium 9.3 (8.4-10.2) mg/dL Total Bilirubin 0.60 (0.2-1.3) mg/dL AST 30 (17-59) U/L ALT 30 (0-50) U/L Alkaline Phosphatase 90 (38-126) U/L Serum Total Protein 8.2 (6.3-8.2) g/dL Albumin 4.7 (3.5-5.0) g/dL Influenza Type A Ag POSITIVE (NEGATIVE) Influenza Type B Ag NEGATIVE (NEGATIVE) RSV (PCR) NEGATIVE (Negative) 06/19/18 Range/Units 07:43 WBC (4.0-10.5) K/mm3 RBC (4.1-5.6) M/mm3 Hgb (12.5-18.0) gm/dl Hct (42-50) % MCV (78-100) fl MCH (26-32) pg MCHC (32-36) g/dl RDW (11.5-14.0) % Plt Count (150-450) K/mm3 MPV (6-9.5) fl Gran % (36.0-66.0) % Eos # (Auto) (0-0.5) Absolute Lymphs (auto) (1.0-4.6) Absolute Monos (auto) (0.0-1.3) Lymphocytes % (24.0-44.0) % Monocytes % (0.0-12.0) % Eosinophils % (0.00-5.0) % Basophils % (0.0-0.4) % Absolute Granulocytes (1.4-6.9) Basophils # (0-0.4) Puncture Site RIGHT BRACHIAL pCO2 66 H* (35-45) mmHg pO2 475 H* (75-100) mmHg Base Excess 3.0 H (-2.0-2.0) O2 Saturation 97.4 (94-100) g/dF ABG pH 7.29 L (7.35-7.45) ABG HCO3 31.7 H* (22-28) ABG O2 Sat (Measured) 100.6 H (95-100) % Greg Test YES A-a Gradient 49 a/A Ratio 0.91 Hemoglobin 14.4 Carboxyhemoglobin 2.1 (0.0-6.9) % THgb Methemoglobin 1.1 L (1.4-1.5) % Potassium 4.2 (3.5-5.1) Temperature 37.0 C POC O2 Flow Rate 85 % Vent Mode BiPAP Inspiratory BiPAP 12 Expiratory BiPAP 6 Sodium (137-145) mmol/L Chloride (98-107) mmol/L Carbon Dioxide (22-30) mmol/L Anion Gap (5-15) MEQ/L BUN (9-20) mg/dL Creatinine (0.66-1.25) mg/dL Estimated GFR ML/MIN Glucose (74-106) mg/dL Calcium (8.4-10.2) mg/dL Total Bilirubin (0.2-1.3) mg/dL AST (17-59) U/L ALT (0-50) U/L Alkaline Phosphatase (38-126) U/L Serum Total Protein (6.3-8.2) g/dL Albumin (3.5-5.0) g/dL Influenza Type A Ag (NEGATIVE) Influenza Type B Ag (NEGATIVE) RSV (PCR) (Negative) - Progress Progress: improved Air Movement: poor Progress Note: 06/19/18 09:00 Pt with a h/o COPD, presented to the ED with severe SOB and wheezing. He did get Solu Medol 125mg IV on route, and got neb treatments in the ED, Pulmicort neb, and was found to be influenza positive. Pt got Tamiflu, Azithromycin and Rocephin. He did get Zofran for nausea. Pt's D dimer is elevated, and he will need CT for PE study, when stable. Blood Culture(s) Obtained: No Antibiotics given: Yes Discussed with : Germain Will see patient in: hospital (full admit) - Departure Time of Disposition: 09:03 Departure Disposition: In-patient Admission Clinical Impression: Acute respiratory distress Condition: Serious Critical Care Time: Yes Critical Care Time(excluding separately billable procedures): 30-74 minutes Referrals: MONTANA THOMAS [Primary Care Provider] -
[2018-06-19] MEDS ORDERED: Sodium Chloride 0.9% 1000 ML 1,000 ML IV SCH (09:15)
[2018-06-19] MEDS ORDERED: ENOXAPARIN SODIUM SQ SCH ×2 (09:15→22:00)
[2018-06-19] MEDS ORDERED: Zofran 4 MG/2 ML VIAL IV PRN (09:16)
[2018-06-19] MEDS: DUONEB 0.5-3 MG/3 ml Neb IH SCH ×4 (11:11→23:05)
[2018-06-19] MEDS: xanAX 0.5 MG PO SCH ×3 (12:12→22:01)
[2018-06-19] MEDS: solu-MEDROL 125 MG IV SCH ×2 (12:13→17:14)
[2018-06-19] MEDS ORDERED: Sodium Chloride 0.9% 1000 ML 1,000 ML IV STA (13:57)
[2018-06-19 14:04] LABS: A-aADO2 60; ABG HEMOGLOBIN 11.9; ABG POTASSIUM 4.1 (3.5-5.1); ABG SITE RIGHT BRACHIAL; ARTERIAL BLD GAS O2 SATURATION 99.4 % (95-100); ARTERIAL BLOOD GAS BASE EXCESS 0.6 (-2.0-2.0); ARTERIAL BLOOD GAS FIO2 35 %; ARTERIAL BLOOD GAS PCO2 50 mmHg (35-45); ARTERIAL BLOOD GAS PO2 127 mmHg (75-100); ARTERIAL BLOOD GAS VENT MODE BiPAP; ARTERIAL BLOOD GAS pH 7.34 (7.35-7.45); CARBOXYHEMOGLOBIN 2.1 % THgb (0.0-6.9); Methhemoglobin 1.3 % (1.4-1.5); paO2 pAO1 0.68
[2018-06-19] MEDS: Advair Hfa 230/21 Mcg MDI IH SCH (18:57)
[2018-06-19] MEDS ORDERED: PULMICORT 0.5 MG/2 ML RESPULES IH SCH (19:00)
--- NOTE | 2018-06-19 20:51 | XRAY ---
Indication: Dyspnea. Comparison: October 06, 2017. Portable chest again hyperinflated with right midlung calcified granuloma. New subtle left base infiltrates/atelectasis. Remaining lungs clear. Heart and mediastinal structures within normal limits. Bony thorax intact again with mild osteopenia and degenerative changes. Impression: 1. New left base infiltrate/atelectasis. Correlate clinically. 2. Stable COPD. Comment: Preliminary interpretation was made by [facility]. No discrepancy.
[2018-06-19] MEDS ORDERED: SALMETEROL IH SCH (22:00)
[2018-06-19] MEDS ORDERED: FLUTICASONE IH SCH (22:00)
[2018-06-19] MEDS: Tamiflu 75MG Capsule PO SCH (22:01)
[2018-06-20] MEDS: solu-MEDROL 125 MG IV SCH ×4 (00:17→17:05)
[2018-06-20] MEDS: DUONEB 0.5-3 MG/3 ml Neb IH SCH ×6 (03:00→22:53)
[2018-06-20 06:06] LABS: Appearance CLEAR (CLEAR); Bilirubin NEGATIVE (NEGATIVE); Blood NEGATIVE Ery/ul (0-5); Glucose 50 mg/dL (NEGATIVE); Ketones NEGATIVE (NEGATIVE); Leukocyte Esterase NEGATIVE (NEGATIVE); Mucus SLIGHT /HPF (NEGATIVE); Nitrite NEGATIVE (NEGATIVE); Protein,Urine Dip NEGATIVE (Negative); Specific Gravity 1.014 (1.005-1.025); Urobilinogen NEGATIVE mg/dL (0-1)
[2018-06-20 06:45] LABS: Hematocrit 39.1 % (42-50); Hemoglobin 12.4 gm/dl (12.5-18.0); Mean Cell Volume 99.2 fl (78-100); Mean Corpuscular Hgb Concent. 31.7 g/dl (32-36); Mean Platelet Volume 10.5 fl (6-9.5); Platelet Count 192 K/mm3 (150-450); Red Blood Count 3.94 M/mm3 (4.1-5.6); Red Cell Distribution Width 13.7 % (11.5-14.0); White Blood Count 6.5 K/mm3 (4.0-10.5)
[2018-06-20 06:54] LABS: Mean Corpuscular Hemoglobin 31.4 pg (26-32)
[2018-06-20 07:04] LABS: ALBUMIN 3.8 g/dL (3.5-5.0); ALKALINE PHOSPHATASE 73 U/L (38-126); ANION GAP 11.5 MEQ/L (5-15); BLOOD UREA NITROGEN 14 mg/dL (9-20); CHLORIDE 102 mmol/L (98-107); Calcium 8.7 mg/dL (8.4-10.2); Carbon Dioxide 30 mmol/L (22-30); Glucose 138 mg/dL (74-106); Potassium 4.8 mmol/L (3.5-5.1); SGOT/AST 25 U/L (17-59); SGPT/ALT 25 U/L (0-50); SODIUM 139 mmol/L (137-145); Total Protein 6.7 g/dL (6.3-8.2)
[2018-06-20] MEDS: ADVAIR 500-50 DISKUS IH SCH ×2 (07:09→18:55)
[2018-06-20] MEDS: Advair Hfa 230/21 Mcg MDI IH SCH (07:21)
[2018-06-20] MEDS: xanAX 0.5 MG PO SCH ×4 (08:44→22:30)
--- NOTE | 2018-06-20 09:43 | XRAY ---
Indication: Short of breath. Low oxygenation. COPD. Elevated d-dimer. Multiple contiguous axial images obtained through the chest using 80 cc Isovue 370 contrast and PE protocol. Comparison: May 06, 2016. There is adequate opacification of the pulmonary arteries to include the lobar and segmental branches. Again no filling defect or pulmonary embolus. Heart is not enlarged. Aorta again minimally calcified without aneurysm/dissection. Stable right hilar calcified nodes. No pathologic mediastinal/hilar lymphadenopathy. Examination of lung parenchyma again demonstrates diffuse pulmonary emphysema, scattered bilateral fibrosis/scarring, left upper lobe noncalcified micronodule, and inferior right upper/left lower lobe lobe calcified granulomas. No new pulmonary mass, infiltrate, or effusion. Bony thorax intact again with mild degenerative changes throughout the spine. Limited upper abdomen demonstrates again incidental tiny hepatic cyst and 5.6 cm left renal cyst. Impression: 1. Again negative pulmonary embolus. 2. Stable pulmonary emphysema, fibrosis/scarring, and calcified/noncalcified micronodules. 3. No new/acute cardiopulmonary abnormalities. 4. Stable incidental hepatic and left renal cysts. CT DI 13.33
[2018-06-20] MEDS: ROCEPHIN 1 Gm-D5w 50 ml Bag** 1 G/50 ML IVPB IV SCH (09:56)
[2018-06-20] MEDS: Tamiflu 75MG Capsule PO SCH ×2 (09:56→22:30)
[2018-06-20] MEDS: Zithromax 500 MG/ 250 ML NaCl Premix 500 MG/250 ML IVPB IV SCH (10:31)
[2018-06-20] MEDS: ENOXAPARIN SODIUM SQ SCH (10:31)
[2018-06-20] MEDS: CEPACOL SORE THROAT LOZENGE PO PRN (15:53)
[2018-06-21] MEDS: solu-MEDROL 125 MG IV SCH ×4 (00:30→21:21)
[2018-06-21] MEDS: DUONEB 0.5-3 MG/3 ml Neb IH SCH ×6 (02:59→23:21)
[2018-06-21 05:52] LABS: Basophil (Absolute #) 0 (0-0.4); Eosinophil (Absolute #) 0 (0-0.5); Granulocyte Absolute (ANC) 13.51 (1.4-6.9); Granulocytes % 92.4 % (36.0-66.0); Hematocrit 37.2 % (42-50); Hemoglobin 11.7 gm/dl (12.5-18.0); Lymphocyte (Absolute #) 0.42 (1.0-4.6); Lymphocytes % 2.9 % (24.0-44.0); Mean Cell Volume 99.7 fl (78-100); Mean Corpuscular Hgb Concent. 31.5 g/dl (32-36); Mean Platelet Volume 10.7 fl (6-9.5); Monocyte (Absolute #) 0.68 (0.0-1.3); Monocytes % 4.7 % (0.0-12.0); Platelet Count 199 K/mm3 (150-450); Red Blood Count 3.73 M/mm3 (4.1-5.6); White Blood Count 14.6 K/mm3 (4.0-10.5)
[2018-06-21 05:59] LABS: ANION GAP 9.2 MEQ/L (5-15); BLOOD UREA NITROGEN 19 mg/dL (9-20); CHLORIDE 102 mmol/L (98-107); Calcium 8.5 mg/dL (8.4-10.2); Carbon Dioxide 31 mmol/L (22-30); Creatinine 1 0.66 mg/dL (0.66-1.25); Glucose 146 mg/dL (74-106); Potassium 4.5 mmol/L (3.5-5.1); SODIUM 138 mmol/L (137-145)
[2018-06-21 06:01] LABS: Mean Corpuscular Hemoglobin 31.3 pg (26-32)
[2018-06-21] MEDS: ADVAIR 500-50 DISKUS IH SCH ×2 (06:52→19:42)
[2018-06-21 07:39] LABS: Slide Review 1 YES
--- NOTE | 2018-06-21 07:43 | HP ---
HISTORY OF PRESENT ILLNESS: This is a 72 year-old man who states he suddenly became short of breath in the middle of the night early Wednesday morning and came to the emergency department by ambulance. He reports he tried to take five nebulizer treatments at home without any relief. He reports he felt better overnight on the BiPAP but continues to have some shortness of breath. He had chest CT ordered this morning and he is worried about the results of this. He reports he does see Dr. Kulkarni on a regular basis but had to cancel an appointment due to being out of town recently. He states he did have sick contacts the night before. He became ill. He did receive a flu immunization in our office in the fall. The patient reports poor oral intake at home and wanting to try some Ensure. REVIEW OF SYSTEMS: He denies any abdominal pain. No diarrhea. No constipation. No lower extremity edema. No rashes. He reports he had no fever at home. He does have a cough that is sometimes productive and shortness of breath as well as wheezing. PAST MEDICAL HISTORY: Chronic obstructive pulmonary disease, anxiety, chronic hoarseness which he had a scope for by ENT doctor, Dr. Dior, and no polyps. PAST SURGICAL HISTORY: Colonoscopy 2019. SOCIAL HISTORY: He used to smoke and quit in October 2017. History of alcohol abuse but no longer uses alcohol. He chews tobacco. He lives alone. FAMILY HISTORY: Noncontributory. PHYSICAL EXAMINATION: VITAL SIGNS: Temperature current 97.6F, heart rate 81 to 121 currently 81, respiratory rate 16 to 24, blood pressure 110 to 139 over 61 to 77, weight 54.1 kg. Oxygen saturation 93 to 98% on nasal cannula and BiPAP. GENERAL: The patient is sitting up in bed leaning forward over his tray. He is talking in full sentences. No retractions are noted. No nasal flaring. LUNGS: Distant breath sounds that are equal. No wheezes are appreciated. The patient reports he just had a nebulizer treatment a few minutes before. CVS: His heart is tachycardic with a regularly rhythm. No murmurs, gallops or rubs. ABDOMEN: Soft, nontender, nondistended. EXTREMITIES: No clubbing, cyanosis or edema. SKIN: Warm, dry and intact. LABORATORY DATA AND TESTS: Labs on admission his white blood cell count was normal, hemoglobin 15.5. D-Dimer 1,417. Blood gas CO2 retention. CMP with a glucose of 138 this a.m. UA was negative. Influenza A was positive. Influenza B and respiratory syncytial virus were negative. Chest x-ray was read as new left base infiltrate/atelectasis correlate clinically, stable chronic obstructive pulmonary disease. ASSESSMENT AND PLAN: 1) INFLUENZA A: He was started on Tamiflu 75 mg p.o. b.i.d. this is day two of Tamiflu. 2) CHRONIC OBSTRUCTIVE PULMONARY DISEASE EXACERBATION: He was started on ceftriaxone and azithromycin which we will plan to continue. He is on IV steroids. His sld inclusion teacher, Dr. Ashvin Kulkarni, has been consulted. Will continue with oxygen and BiPAP as needed as well as breathing treatments as needed. 3) ELEVATED D-DIMER: Chest CT has been ordered. He is currently on anticoagulation doses of Lovenox. 4) ANXIETY: Currently well controlled. He has Alprazolam 0.5 mg four times a day as needed.
--- NOTE | 2018-06-21 09:00 | PCM.NOTE ---
Date and Time: 06/21/18854 Subjective Assessment: He reports that he is feeling better. He did wear the bipap last night and states he plans to use it again today. Dr. Kulkarni has been consulted and we are awaiting his consult. Patient denies any constipation but states he feels like he needs to have a bowel movement. - Review of Systems Constitutional: No Symptoms Eyes: No Symptoms Ears, Nose, & Throat: No Symptoms Respiratory: Cough, Short Of Breath Cardiac: No Symptoms Abdominal/Gastrointestinal: No Symptoms Genitourinary Symptoms: No Symptoms Musculoskeletal: No Symptoms Skin: No Symptoms Objective Exam General Appearance: no apparent distress, alert, other (leaning forward on his bedside table with his elbows on table.) Neurologic Exam: alert, cooperative, normal mood/affect Skin Exam: normal color, warm, dry, No rash Respiratory Exam: diminished breath sounds, other (distant breath sounds throughout, no tachypnea; speaking in full sentences), No respiratory distress, No accessory muscle use, No crackles/rales, No rhonchi, No wheezing Cardiovascular Exam: other (tachycardia; regular rhythm), No murmur, No friction rub, No gallop Gastrointestinal/Abdomen Exam: soft, normal bowel sounds, No tenderness, No distention Extremity Exam: other (no c/c/e) OBJECTIVE DATA Vital Signs: Vital Signs - 24 hr Temp Pulse Resp BP Pulse Ox 06/21/18 08:00 97.6 F 103 H 18 123/74 93 L 06/21/18 07:04 78 14 98 06/21/18 03:59 97.4 F 83 15 104/65 98 06/21/18 03:19 97.7 F 94 H 16 110/69 98 06/21/18 02:59 83 15 98 06/20/18 23:36 97.7 F 94 H 16 110/69 98 06/20/18 22:53 90 16 98 06/20/18 20:00 98.4 F 104 H 19 132/63 98 06/20/18 19:00 104 H 19 98 06/20/18 16:30 81 16 139/77 96 06/20/18 16:00 97.6 F 117 H 24 118/67 93 L 06/20/18 14:46 101 H 16 98 06/20/18 12:00 98.3 F 97 H 17 110/61 97 06/20/18 11:15 109 H 16 96 Oxygen-Last 24 hours O2 Percentage 2 Liters = 28% O2 Percentage 2 Liters = 28% O2 Percentage 2 Liters = 28% O2 Percentage 2 Liters = 28% O2 Percentage 2 Liters = 28% Oxygen Flowrate (L/min)-RT 2 Oxygen Flowrate (L/min)-RT 2 Oxygen Flowrate (L/min)-RT 2 Pain Assessment - Last Documented Pain Intensity 0 Pain Scale Used 0-10 Pain Scale Intake and Output: Intake & Output 06/19/18 06/20/18 06/21/18 06/22/18 06:59 06:59 06:59 06:59 Intake Total 3073 1020 Output Total 1250 1040 Balance 1823 -20 Weight 54.18 kg 55.5 kg Lab Results: Lab Results-Last 24 Hours 06/21/18 06/21/18 Range/Units 05:07 05:07 WBC 14.6 H (4.0-10.5) K/mm3 RBC 3.73 L (4.1-5.6) M/mm3 Hgb 11.7 L (12.5-18.0) gm/dl Hct 37.2 L (42-50) % MCV 99.7 (78-100) fl MCH 31.3 (26-32) pg MCHC 31.5 L (32-36) g/dl RDW 14.0 (11.5-14.0) % Plt Count 199 (150-450) K/mm3 MPV 10.7 H (6-9.5) fl Gran % 92.4 H (36.0-66.0) % Eos # (Auto) 0 (0-0.5) Absolute Lymphs (auto) 0.42 L (1.0-4.6) Absolute Monos (auto) 0.68 (0.0-1.3) Lymphocytes % 2.9 L (24.0-44.0) % Monocytes % 4.7 (0.0-12.0) % Eosinophils % 0.0 (0.00-5.0) % Basophils % 0.0 (0.0-0.4) % Absolute Granulocytes 13.51 H (1.4-6.9) Basophils # 0 (0-0.4) Sodium 138 (137-145) mmol/L Potassium 4.5 (3.5-5.1) mmol/L Chloride 102 (98-107) mmol/L Carbon Dioxide 31 H (22-30) mmol/L Anion Gap 9.2 (5-15) MEQ/L BUN 19 (9-20) mg/dL Creatinine 0.66 (0.66-1.25) mg/dL Estimated GFR > 60.0 ML/MIN Glucose 146 H (74-106) mg/dL Calcium 8.5 (8.4-10.2) mg/dL Slides for Path Review YES Radiology Exams: Radiology Procedures Category Date Time Status CHEST WITH CONTRAST [CT] Stat Exams 06/20/18 09:27 Completed Assessment/Plan (1) Influenza A Current Visit: Yes Status: Acute Assessment & Plan: Continue tamiflu Day 3; Continue supportive treatment. He did have a high dose flu immunization in our office in January 2018. Code(s): J10.1 - FLU DUE TO OTH IDENT INFLUENZA VIRUS W OTH RESP MANIFEST (2) COPD with exacerbation Current Visit: Yes Status: Acute Assessment & Plan: Continue oxygen as needed; bipap as needed; will start to wean steroids; Continue breathing treatments. Dr. Cleo Kulkarni consulted. Continue ceftriaxone and azithromycin Day 3. Code(s): J44.1 - CHRONIC OBSTRUCTIVE PULMONARY DISEASE W (ACUTE) EXACERBATION (3) Elevated d-dimer Current Visit: No Status: Acute Assessment & Plan: CT scan was negative for PE. Lovenox was changed to DVT prophylaxis dose from treatment dose. Code(s): R79.89 - OTHER SPECIFIED ABNORMAL FINDINGS OF BLOOD CHEMISTRY (4) Anxiety Current Visit: No Status: Acute Assessment & Plan: Currently well controlled. Code(s): F41.9 - ANXIETY DISORDER, UNSPECIFIED (5) Leukocytosis Current Visit: Yes Status: Acute Assessment & Plan: Most likely due to steroid use. Will start to taper. Code(s): D72.829 - ELEVATED WHITE BLOOD CELL COUNT, UNSPECIFIED (6) Sinus tachycardia Current Visit: Yes Status: Acute Assessment & Plan: Most likely due to illness; may start low dose of oral diltiazem. Code(s): R00.0 - TACHYCARDIA, UNSPECIFIED
[2018-06-21] MEDS: xanAX 0.5 MG PO SCH ×4 (09:18→21:21)
[2018-06-21] MEDS: Tamiflu 75MG Capsule PO SCH ×2 (09:18→21:21)
[2018-06-21] MEDS: Cardizem 30 MG PO SCH ×4 (09:19→21:21)
[2018-06-21] MEDS: ENOXAPARIN SODIUM SQ SCH (09:19)
[2018-06-21] MEDS: ROCEPHIN 1 Gm-D5w 50 ml Bag** 1 G/50 ML IVPB IV SCH (09:21)
[2018-06-21] MEDS: Zithromax 500 MG/ 250 ML NaCl Premix 500 MG/250 ML IVPB IV SCH (10:01)
[2018-06-22] MEDS: DUONEB 0.5-3 MG/3 ml Neb IH SCH ×6 (03:19→23:15)
[2018-06-22] MEDS: solu-MEDROL 125 MG IV SCH ×3 (05:20→22:13)
[2018-06-22 05:59] LABS: BASOPHIL % 0.1 % (0.0-0.4); Basophil (Absolute #) 0.01 (0-0.4); Eosinophil (Absolute #) 0 (0-0.5); Granulocyte Absolute (ANC) 13.64 (1.4-6.9); Granulocytes % 92.2 % (36.0-66.0); Hematocrit 37.6 % (42-50); Hemoglobin 11.6 gm/dl (12.5-18.0); Lymphocytes % 3.4 % (24.0-44.0); Mean Cell Volume 101.1 fl (78-100); Mean Corpuscular Hgb Concent. 30.9 g/dl (32-36); Mean Platelet Volume 10.7 fl (6-9.5); Monocyte (Absolute #) 0.64 (0.0-1.3); Monocytes % 4.3 % (0.0-12.0); Platelet Count 208 K/mm3 (150-450); Red Blood Count 3.72 M/mm3 (4.1-5.6); Red Cell Distribution Width 14.2 % (11.5-14.0); White Blood Count 14.8 K/mm3 (4.0-10.5)
[2018-06-22 06:02] LABS: Mean Corpuscular Hemoglobin 31.1 pg (26-32)
[2018-06-22 06:04] LABS: BLOOD UREA NITROGEN 25 mg/dL (9-20); CHLORIDE 101 mmol/L (98-107); Calcium 8.6 mg/dL (8.4-10.2); Carbon Dioxide 34 mmol/L (22-30); Creatinine 1 0.64 mg/dL (0.66-1.25); Glucose 137 mg/dL (74-106); Potassium 4.5 mmol/L (3.5-5.1); SODIUM 142 mmol/L (137-145)
[2018-06-22] MEDS: ADVAIR 500-50 DISKUS IH SCH ×2 (06:37→19:10)
[2018-06-22 07:44] LABS: Slide Review 1 YES
--- NOTE | 2018-06-22 08:54 | PCM.NOTE ---
Date and Time: 06/22/18 0854 Subjective Assessment: Patient reports his breathing is a little better but he continues to cough and has had some sputum production. He reports he hopes to take a shower today. He would like to continue to wean off his oxygen. He does not wear oxygen at home. He is asking if Dr. Kulkarni will be in today. - Review of Systems Constitutional: No Symptoms Eyes: No Symptoms Ears, Nose, & Throat: No Symptoms Respiratory: Cough, Short Of Breath Cardiac: No Symptoms Abdominal/Gastrointestinal: No Symptoms Genitourinary Symptoms: No Symptoms Musculoskeletal: No Symptoms Neurological: No Symptoms Objective Exam General Appearance: no apparent distress, thin, other (leaning forward over his side table) Neurologic Exam: alert, cooperative Skin Exam: normal color, warm, dry, No rash Respiratory Exam: other (distant breath sounds, no tachypnea, no retractions), No crackles/rales, No rhonchi, No wheezing Cardiovascular Exam: regular rate/rhythm, normal heart sounds, No murmur, No friction rub, No gallop Gastrointestinal/Abdomen Exam: soft, normal bowel sounds, No tenderness, No distention, No mass Extremity Exam: normal inspection, other (no c/c/e) OBJECTIVE DATA Vital Signs: Vital Signs - 24 hr Temp Pulse Resp BP Pulse Ox 06/22/18 07:26 98 F 94 H 18 103/52 96 06/22/18 06:42 95 H 18 97 06/22/18 04:00 98.7 F 69 16 103/61 98 06/22/18 03:19 68 19 99 06/22/18 00:00 97.8 F 74 24 102/50 97 06/21/18 23:22 69 17 97 06/21/18 20:00 97.7 F 77 21 99/55 97 06/21/18 19:57 77 21 97 06/21/18 16:00 74 17 99/55 99 06/21/18 15:21 73 22 93 L 06/21/18 12:00 97.9 F 79 19 126/68 97 06/21/18 11:24 85 16 99 Oxygen-Last 24 hours O2 Percentage 2 Liters = 28% O2 Percentage 2 Liters = 28% O2 Percentage 3 Liters = 32% Pain Assessment - Last Documented Pain Intensity 0 Pain Scale Used 0-10 Pain Scale Intake and Output: Intake & Output 06/20/18 06/21/18 06/22/18 06/23/18 06:59 06:59 06:59 06:59 Intake Total 3073 1020 916 Output Total 1250 1040 600 Balance 1823 -20 316 Weight 54.18 kg 55.5 kg 55.5 kg 55.6 kg Lab Results: Lab Results-Last 24 Hours 06/22/18 06/22/18 Range/Units 05:15 05:15 WBC 14.8 H (4.0-10.5) K/mm3 RBC 3.72 L (4.1-5.6) M/mm3 Hgb 11.6 L (12.5-18.0) gm/dl Hct 37.6 L (42-50) % MCV 101.1 H (78-100) fl MCH 31.1 (26-32) pg MCHC 30.9 L (32-36) g/dl RDW 14.2 H (11.5-14.0) % Plt Count 208 (150-450) K/mm3 MPV 10.7 H (6-9.5) fl Gran % 92.2 H (36.0-66.0) % Eos # (Auto) 0 (0-0.5) Absolute Lymphs (auto) 0.50 L (1.0-4.6) Absolute Monos (auto) 0.64 (0.0-1.3) Lymphocytes % 3.4 L (24.0-44.0) % Monocytes % 4.3 (0.0-12.0) % Eosinophils % 0.0 (0.00-5.0) % Basophils % 0.1 (0.0-0.4) % Absolute Granulocytes 13.64 H (1.4-6.9) Basophils # 0.01 (0-0.4) Sodium 142 (137-145) mmol/L Potassium 4.5 (3.5-5.1) mmol/L Chloride 101 (98-107) mmol/L Carbon Dioxide 34 H (22-30) mmol/L Anion Gap 11.0 (5-15) MEQ/L BUN 25 H (9-20) mg/dL Creatinine 0.64 L (0.66-1.25) mg/dL Estimated GFR > 60.0 ML/MIN Glucose 137 H (74-106) mg/dL Calcium 8.6 (8.4-10.2) mg/dL Slides for Path Review YES Radiology Exams: Radiology Procedures Category Date Time Status CHEST WITH CONTRAST [CT] Stat Exams 06/20/18 09:27 Completed Assessment/Plan (1) Influenza A Current Visit: Yes Status: Acute Assessment & Plan: Continue Tamiflu Day 4. Will stop after Day 5. Continue with supportive care with oxygen and steroids and breathing treatments. Code(s): J10.1 - FLU DUE TO OTH IDENT INFLUENZA VIRUS W OTH RESP MANIFEST (2) COPD with exacerbation Current Visit: Yes Status: Acute Assessment & Plan: Continue ceftriaxone and azithromycin as well as steroids and breathing treatments and oxygen. Code(s): J44.1 - CHRONIC OBSTRUCTIVE PULMONARY DISEASE W (ACUTE) EXACERBATION (3) Anxiety Current Visit: No Status: Acute Assessment & Plan: Well controlled. Code(s): F41.9 - ANXIETY DISORDER, UNSPECIFIED (4) Leukocytosis Current Visit: Yes Status: Acute Assessment & Plan: Most likely due to steroids. I have started to wean these. Code(s): D72.829 - ELEVATED WHITE BLOOD CELL COUNT, UNSPECIFIED (5) Sinus tachycardia Current Visit: Yes Status: Acute Assessment & Plan: Improved with diltiazem. Code(s): R00.0 - TACHYCARDIA, UNSPECIFIED
[2018-06-22] MEDS: Cardizem 30 MG PO SCH ×4 (09:07→22:13)
[2018-06-22] MEDS: Tamiflu 75MG Capsule PO SCH ×2 (09:07→22:13)
[2018-06-22] MEDS: xanAX 0.5 MG PO SCH ×4 (09:07→22:13)
[2018-06-22] MEDS: ENOXAPARIN SODIUM SQ SCH (09:08)
[2018-06-22] MEDS: ROCEPHIN 1 Gm-D5w 50 ml Bag** 1 G/50 ML IVPB IV SCH (09:08)
[2018-06-22] MEDS: Zithromax 500 MG/ 250 ML NaCl Premix 500 MG/250 ML IVPB IV SCH (10:27)
[2018-06-22] MEDS: CEPACOL SORE THROAT LOZENGE PO PRN ×2 (10:32→19:25)
[2018-06-23] MEDS: DUONEB 0.5-3 MG/3 ml Neb IH SCH ×3 (03:55→10:26)
[2018-06-23 05:59] LABS: Basophil (Absolute #) 0 (0-0.4); Eosinophil (Absolute #) 0 (0-0.5); Granulocytes % 92.7 % (36.0-66.0); Hematocrit 37.8 % (42-50); Hemoglobin 12.2 gm/dl (12.5-18.0); Lymphocyte (Absolute #) 0.39 (1.0-4.6); Lymphocytes % 3.5 % (24.0-44.0); Mean Cell Volume 98.7 fl (78-100); Mean Corpuscular Hgb Concent. 32.3 g/dl (32-36); Mean Platelet Volume 10.6 fl (6-9.5); Monocyte (Absolute #) 0.43 (0.0-1.3); Monocytes % 3.8 % (0.0-12.0); Platelet Count 220 K/mm3 (150-450); Red Blood Count 3.83 M/mm3 (4.1-5.6); White Blood Count 11.2 K/mm3 (4.0-10.5)
[2018-06-23] MEDS ORDERED: Sodium Chloride 0.9% 10 ML FLUSH Syringe IV SCH (06:00)
[2018-06-23] MEDS: solu-MEDROL 125 MG IV SCH (06:28)
[2018-06-23 06:35] LABS: Mean Corpuscular Hemoglobin 31.8 pg (26-32)
[2018-06-23 06:37] LABS: ANION GAP 10.1 MEQ/L (5-15); BLOOD UREA NITROGEN 25 mg/dL (9-20); CHLORIDE 97 mmol/L (98-107); Carbon Dioxide 36 mmol/L (22-30); Creatinine 1 0.64 mg/dL (0.66-1.25); Glucose 138 mg/dL (74-106); Potassium 4.5 mmol/L (3.5-5.1); SODIUM 139 mmol/L (137-145)
[2018-06-23] MEDS: ADVAIR 500-50 DISKUS IH SCH (06:39)
[2018-06-23 07:44] LABS: Slide Review 1 YES
[2018-06-23 08:08] VITALS: BP 132/72; O2SAT 93
--- NOTE | 2018-06-23 08:12 | CONS ---
CONSULT DATE: 06/22/2018 HISTORY: Elijah Andrews is a 72 year-old male with long standing history of chronic obstructive pulmonary disease and chronic respiratory failure, well known to me who was in usual state of health up until last weekend. The patient reports that he started having cough which was minimally productive with increased chills, shortness of breath, wheezing. The patient presented to the emergency room at [facility] where he tested for positive for influenza. In addition, he also had positive D-Dimer. CT chest was ordered which was negative for pulmonary embolism. The patient is currently being treated with oral Tamiflu IV, antibiotics and steroids with improvement in symptoms. At the time of my evaluation today, he reports minimal cough, wheezing has improved as well. The patient has been able to ambulate in the room. He has been using BiPAP at night and PRN during the day. PAST MEDICAL HISTORY: Positive for chronic obstructive pulmonary disease, chronic respiratory failure, anxiety disorder. PAST SURGICAL HISTORY: Colonoscopy. PERSONAL AND SOCIAL HISTORY: The patient is a former smoker. He quit smoking about eight months ago. Prior history of alcohol abuse as well. MEDICATIONS: Home and current medications are reviewed. ALLERGIES: NKDA. PHYSICAL EXAMINATION: This is an elderly male who appears mildly tachypneic but able to talk. Vital signs noted. HEENT: Normocephalic. Oral exam is limited. NECK: Supple. CVS: First and second heart sounds are normal, regular, rhythmic. RESPIRATORY: Shows diminished breath sounds, scattered rhonchi. ABDOMEN: Soft. LABORATORY DATA AND TESTS: White blood cell count 14.8, hemoglobin 11.6, hematocrit 37, PLT 208,000. Sodium 142, potassium 4.5, chloride 101, bicarb 30, glucose 137, BUN 25, creatinine 0.6. CT chest was noted. Troponin 0.0104, prior to that 0.114 and 0.116. ASSESSMENT: This is a 72 year old male admitted with: 1) Chronic obstructive pulmonary disease with acute exacerbation. 2) Influenza A. 3) Non-ST myocardial infarction from pulmonary stress. 4) Acute bronchitis. 5) Anxiety disorder. RECOMMENDATIONS: I agree with present treatment. Complete Tamiflu 75 mg b.i.d. for five days. I agree with IV steroids with taper, continue IV antibiotics to prevent secondary bacterial infection. Glucose status appears to be due to steroid-related. Clinically the patient is improving. Will benefit from pulmonary rehab. I referred him in the past however he was unable to do this due to his vehicle breaking down. He would benefit from repeat evaluation if the patient is in agreement. I will follow up in outpatient setting upon discharge. Thank you for allowing me to participate in the care of Elijah Andrews.
--- NOTE | 2018-06-23 08:55 | PCM.DCORD ---
- Discharge Discharge Date: 06/23/18 Disposition: Swing Bed @ [facility] Condition: Serious Prescriptions: No Action Alprazolam [Xanax] 0.5 mg PO QID Albuterol Sulfate [Proair Hfa] 8.5 gm IH Q12H PRN PRN PRN Reason: Shortness Of Breath Fluticasone/Salmeterol 230/21* [Advair Hfa 230/21 Mcg MDI] 1 puff IH BID Follow up with: SHANICE MORA [ACTIVE STAFF] - 1 Week (follow up in 2 weks on d/c) MNOTANA THOMAS [Primary Care Provider] - 1 Week
[2018-06-23] MEDS ORDERED: LASIX 20 MG PO SCH (10:00)
[2018-06-23] MEDS: ROCEPHIN 1 Gm-D5w 50 ml Bag** 1 G/50 ML IVPB IV SCH (10:03)
[2018-06-23] MEDS: Zithromax 500 MG/ 250 ML NaCl Premix 500 MG/250 ML IVPB IV SCH (10:03)
[2018-06-23] MEDS: Cardizem 30 MG PO SCH (10:04)
[2018-06-23] MEDS: Tamiflu 75MG Capsule PO SCH (10:04)
[2018-06-23] MEDS: ENOXAPARIN SODIUM SQ SCH (10:04)
[2018-06-23] MEDS: xanAX 0.5 MG PO SCH (10:04)
[2018-06-23 10:47] VITALS: PULSE 110
--- NOTE | 2018-06-23 14:56 | DS ---
DISCHARGE DIAGNOSES: 1) INFLUENZA A. 2) CHRONIC OBSTRUCTIVE PULMONARY DISEASE WITH EXACERBATION. 3) ANXIETY. 4) LEUKOCYTOSIS. 5) SINUS TACHYCARDIA. DISCHARGE PHYSICAL EXAMINATION: VITALS: Temperature current 97.8F, temperature max 97.8F, heart rate 64 to 96, respiratory rate 19 to 20, blood pressure 114 to 132 over 62 to 72. Oxygen saturation 93 to 97% on 1 liter nasal cannula. GENERAL: The patient is sitting up on the side of his bed in no acute distress. He is pleasant and talkative. CVS: has a regular rate and rhythm. No murmurs, gallops or rubs are appreciated. LUNGS: Clear to auscultation bilaterally. No crackles or wheezes are appreciated. There are equal breath sounds. ABDOMEN: Soft with normal bowel sounds. EXTREMITIES: He has +2 edema of his lower extremities bilaterally. HOSPITAL COURSE: 1) INFLUENZA A: He was started on Tamiflu in the emergency department. Today will be his fifth day once he receives his evening dose of Tamiflu. Will continue with supportive care and oxygen as well as breathing treatments if needed. 2) CHRONIC OBSTRUCTIVE PULMONARY DISEASE WITH EXACERBATION: He is on ceftriaxone and azithromycin as well as steroids and breathing treatments and oxygen. Today he will finish his fifth day of azithromycin so will plan to discontinue that tomorrow. Green Energy Marketing Analyst, Dr. Ashvin Kulkarni, was consulted and saw the patient and agreed with the current plan of care and plans to follow up with the patient once he is discharged. He also recommended cardiopulmonary rehab. The patient is asking for new nebulizer tubing order to be sent to [email or web address] for that. 3) ANXIETY: Currently well controlled. 4) LEUKOCYTOSIS: He continues to have leukocytosis most likely due to IV steroids, will continue to wean these as tolerated. 5) SINUS TACHYCARDIA: He is tolerating the diltiazem well to help control his tachycardia. 6) EDEMA: Will start with a low dose of Lasix for this. DISPOSITION: The patient is being discharged to swing-bed for further IV steroids, IV antibiotics, continued oxygen and rehabilitation. Please see the discharge orders for his medications.
== END 2018-06-23 10:25 | disposition swing bed (61) | DRG 194 ==
LOC: ED 07:42 → ICU 10:46 → MED SURG 06-23 09:36
PROVIDERS: ADMIT Family Medicine; ATTEND Family Medicine
DX: R06.03 Acute respiratory distress (principal); J09.X2 Influenza due to identified novel influenza A virus with other respiratory manifestations; J44.9 Chronic obstructive pulmonary disease, unspecified; J44.1 Chronic obstructive pulmonary disease with (acute) exacerbation; J44.0 Chronic obstructive pulmonary disease with (acute) lower respiratory infection; J20.9 Acute bronchitis, unspecified; R79.1 Abnormal coagulation profile; D72.829 Elevated white blood cell count, unspecified; R00.0 Tachycardia, unspecified; R11.0 Nausea; Z79.899 Other long term (current) drug therapy; F41.9 Anxiety disorder, unspecified
CPT/HCPCS: 36000; 36415; 36600; 71045; 71260; 80048; 80053; 81001; 82375; 82803; 84484; 85025; 85027; 85379; 87631; 93005; 94002; 94003; 94150; 94640; 94762; 96365; 96367; 96372; 96374; 96375; 99285; J0360; J0456; J0696; J1650; J2405; J2930; A9270-GY

== ENCOUNTER 2018-06-23 09:19 | Inpatient (IN) | payer MEDICARE ==
[2018-06-23] MEDS: DUONEB 0.5-3 MG/3 ml Neb IH SCH ×4 (10:26→23:37)
[2018-06-23] MEDS ORDERED: Aplisol ID ONE (11:00)
[2018-06-23] MEDS: Sodium Chloride 0.9% 10 ML FLUSH Syringe IV SCH ×2 (13:34→21:40)
[2018-06-23] MEDS: xanAX 0.5 MG PO SCH ×3 (13:34→21:41)
[2018-06-23] MEDS: solu-MEDROL 125 MG IV SCH ×2 (13:34→21:41)
[2018-06-23] MEDS: Cardizem 30 MG PO SCH ×3 (13:34→21:40)
[2018-06-23] MEDS: ADVAIR 500-50 DISKUS IH SCH (18:51)
[2018-06-23] MEDS ORDERED: Tamiflu 75MG Capsule PO SCH (22:00)
[2018-06-24] MEDS: DUONEB 0.5-3 MG/3 ml Neb IH SCH ×6 (02:52→23:10)
[2018-06-24] MEDS: Sodium Chloride 0.9% 10 ML FLUSH Syringe IV SCH ×3 (06:15→22:11)
[2018-06-24] MEDS: solu-MEDROL 125 MG IV SCH ×3 (06:15→22:10)
[2018-06-24] MEDS: ADVAIR 500-50 DISKUS IH SCH ×2 (07:06→18:43)
[2018-06-24] MEDS: Zithromax 500 MG/ 250 ML NaCl Premix 500 MG/250 ML IVPB IV SCH (09:21)
[2018-06-24] MEDS: ROCEPHIN 1 Gm-D5w 50 ml Bag** 1 G/50 ML IVPB IV SCH (09:21)
[2018-06-24] MEDS: Cardizem 30 MG PO SCH ×4 (09:23→22:10)
[2018-06-24] MEDS: CEPACOL SORE THROAT LOZENGE PO PRN ×2 (09:23→22:11)
[2018-06-24] MEDS: ENOXAPARIN SODIUM SQ SCH (09:23)
[2018-06-24] MEDS: LASIX 20 MG PO SCH (09:24)
[2018-06-24] MEDS: xanAX 0.5 MG PO SCH ×4 (09:24→22:10)
[2018-06-24] MEDS ORDERED: Aplisol ID SCH (10:00)
[2018-06-25] MEDS: DUONEB 0.5-3 MG/3 ml Neb IH SCH ×2 (03:49→07:48)
[2018-06-25] MEDS: solu-MEDROL 125 MG IV SCH (05:32)
[2018-06-25] MEDS: Sodium Chloride 0.9% 10 ML FLUSH Syringe IV SCH (05:32)
[2018-06-25] MEDS: ADVAIR 500-50 DISKUS IH SCH (07:49)
[2018-06-25 08:08] VITALS: BP 158/74; PULSE 100; O2SAT 91
--- NOTE | 2018-06-25 08:53 | PCM.DCORD ---
- Discharge Discharge Date: 06/25/18 Disposition: Home, Self-Care Condition: Good Prescriptions: New Diltiazem HCl [Cardizem LA] 120 mg PO DAILY #30 tab.er.24h Prednisone 20 mg [Deltasone 20 mg] 20 mg PO UD #12 tablet Albuterol/Ipratropium 3ml Neb* [DUONEB 0.5-3 MG/3 ml Neb] 3 ml IH QID #150 ampul.neb Cefdinir [Omnicef] 300 mg PO BID #8 capsule Continue Alprazolam [Xanax] 0.5 mg PO QID Albuterol Sulfate [Proair Hfa] 8.5 gm IH Q12H PRN PRN PRN Reason: Shortness Of Breath Fluticasone/Salmeterol 230/21* [Advair Hfa 230/21 Mcg MDI] 1 puff IH BID Additional Instructions: Use Duonebs instead of albuterol in nebulizer. Return to ER if worsening symptoms or any concerns. Patient reports Dr. Mora plans to order cardiopulmonary rehabilitation. Follow up with: SHANICE MORA [ACTIVE STAFF] - 07/07/18 3:15 pm (at t.h. office) [place] THOMAS [Primary Care Provider] - 1 Week
[2018-06-25] MEDS: xanAX 0.5 MG PO SCH (09:09)
[2018-06-25] MEDS: LASIX 20 MG PO SCH (09:09)
[2018-06-25] MEDS: Cardizem 30 MG PO SCH (09:09)
[2018-06-25] MEDS: ENOXAPARIN SODIUM SQ SCH (09:15)
[2018-06-25] MEDS: ROCEPHIN 1 Gm-D5w 50 ml Bag** 1 G/50 ML IVPB IV SCH (09:16)
[2018-06-25] MEDS: Zithromax 500 MG/ 250 ML NaCl Premix 500 MG/250 ML IVPB IV SCH (09:16)
--- NOTE | 2018-06-27 10:02 | DS ---
DISCHARGE DIAGNOSES: 1) INFLUENZA A. 2) CHRONIC OBSTRUCTIVE PULMONARY DISEASE. 3) ANXIETY. 4) SINUS TACHYCARDIA. DISCHARGE PHYSICAL EXAMINATION: VITALS: Temperature current 97.8F, heart rate 100, respiratory rate 19, blood pressure 158/74. Oxygen saturation 91 to 93% on room air. GENERAL: The patient is a pleasant talkative man sitting up on the side of his bed fully dressed with a stocking cap on. CVS: He has a regular rate and rhythm. No murmurs, gallops or rubs are appreciated. CHEST: Clear to auscultation bilaterally. No crackles or wheezes. Equal breath sounds that are distant. No retractions. No tachypnea. ABDOMEN: Soft, nontender, nondistended with normal bowel sounds. EXTREMITIES: +2 pitting edema to mid shins bilaterally. No clubbing or cyanosis. SKIN: Warm, dry and intact. HOSPITAL COURSE: 1) INFLUENZA A: He finished during his inpatient stay five days of Tamiflu and recovering well from influenza A. 2) CHRONIC OBSTRUCTIVE PULMONARY DISEASE WITH EXACERBATION: He has been on IV steroids that have been weaned. Will plan to discharge him with a steroid wean. He finished up a course of azithromycin and six days of ceftriaxone and discharging him with Cefdinir 300 mg p.o. b.i.d. for four more days. He is to follow up with Dr. Kulkarni in the clinic on 07/07/2018 and myself next week. Will continue with DuoNeb through the nebulizer and a script for this was sent. He has a nebulizer at home but is needing new supplies so wrote a script for a nebulizer supplies from [facility]. The patient has an Albuterol inhaler at home but it does not always control his symptoms and this is why he needs a nebulizer. 3) ANXIETY: Currently well controlled on his current medications. 4) SINUS TACHYCARDIA: He has been on diltiazem 30 mg p.o. four times a day, will change this to extended release 120 mg p.o. daily and follow up in the clinic. DISCHARGE MEDICATIONS: Please see the discharge order. FOLLOW UP: He is to follow up with myself and Dr. Ashvin Kulkarni, Ice Platform Supervisor. DISPOSITION: The patient was discharged home in fair condition.
[2018-07-05] MEDS ORDERED: Aplisol ID SCH (10:00)
== END 2018-06-25 10:00 | disposition home or self-care (01) | DRG 195 ==
LOC: MED SURG 10:25
PROVIDERS: ADMIT Internal Medicine; ATTEND Internal Medicine
DX: J09.X2 Influenza due to identified novel influenza A virus with other respiratory manifestations (principal); J44.9 Chronic obstructive pulmonary disease, unspecified; F41.9 Anxiety disorder, unspecified; R00.0 Tachycardia, unspecified; Z79.899 Other long term (current) drug therapy
CPT/HCPCS: 94003; 94150; 94640; 94760; J0456; J0696; J1650; J2930; 97110-GP; A9270-GY

== ENCOUNTER 2019-04-04 08:03 | Day surgery (SDC) | payer MEDICARE ==
[~2019-04-04 08:03] MED LIST changes: +Ak-Dilate OPHTHALMIC*** 1.065 ML, Cyclogyl 1% OPHTH SOL 5 ML 1.065 ML, GATIFLOXACIN 0.5... OP ONE; -Lactated Ringers 1,000 ML IV ONE; +NON-FORMULARY ITEM IJ ONE; +TETRACAINE 0.5% STERI-UNIT SOL OP ONE
[2019-04-04] MEDS ORDERED: Lactated Ringers 1,000 ML IV ONE (08:25)
[2019-04-04] MEDS ORDERED: ACETAZOLAMIDE 250 MG TABLET PO ONE (09:00)
[2019-04-04] MEDS ORDERED: Zofran 4 MG/2 ML VIAL IV PRN (09:00)
[2019-04-04] MEDS ORDERED: BSS 500 ML, Fortaz/Tazicef 1 GM** 0.2 G IO ONE ×2 (10:00)
[2019-04-04] MEDS ORDERED: Epinephrine Preservative Free 1 MG/ML INTRAOP ONE (10:00)
[2019-04-04] MEDS ORDERED: BETADINE 5% OPHTHALMIC 30 ML OP ONE (10:00)
[2019-04-04] MEDS ORDERED: LIDOCAINE HCL 1% AMPUL 5 ML IJ ONE (10:00)
[2019-04-04] MEDS ORDERED: DIPRIVAN 200 MG/20 ML IV ONE ×2 (10:51→11:11)
[2019-04-04 12:29] VITALS: O2SAT 95
[2019-04-04 12:30] VITALS: BP 130/69; PULSE 71
--- NOTE | 2019-04-04 13:41 | OP ---
DATE/TIME OF OPERATION: 04/04/2019 1052 TIME DICTATED: 1307 PREOPERATIVE DIAGNOSIS: Senile cataract of left eye. POSTOPERATIVE DIAGNOSIS: Senile cataract of left eye. SURGEON: Abhay Grant MD SPACE CONTROLLER: None. OPERATION: Cataract extraction of left eye with an intraocular lens implant. STANDARD __X__ COMPLEX ANESTHESIA: MAC. ___X___ Monitored anesthesia care in combination with topical and intra-cameral anesthesia (because of the established specific risk of reflux, arrhythmias, or an anxiety attack associated with ocular manipulation as well as difficulty of the employee training specialist to manage such potentially catastrophic events while simultaneously attempting to complete the surgical procedure, it was deemed necessary for the patient's safety to have an anesthesiologist or a nurse right of way worker present during the procedure whenever possible. The anesthesiologist or the nurse right of way worker was utilized to monitor and regulate the intravenous sedation of the patient, so the patient was cooperative, relaxed, and comfortable). Topical anesthesia using Tetracaine eye drops together with intra cameral anesthesia using Lidocaine 1% MPF. The nurse was utilized to monitor the patient. ANESTHESIA PROVIDER: Daniel Medina CRNA. COMPLICATIONS: None. BLOOD LOSS: None. INDICATIONS: The patient is undergoing cataract surgery in the hopes of eliminating the visual complaints and difficulty. PROCEDURE: After arriving at the facility's outpatient surgery area, an IV was started; the patient was given 5 mg of p.o. Versed. (If an anesthesia provider was not monitoring the patient) The patient was then given topical anesthetic Tetracaine eye drops. A cotton pellet was soaked into a solution of a combination of Zymaxid 0.5%, Mark-Synephrine 2.5% and Ocufen (other drops might have been substituted referenced in the patient's record). The pellet was inserted by the RN into the lower conjunctival cul-de-sac with a sterile forceps and left for 20 minutes. The pellet was then removed by the RN with a sterile forceps before taking the patient to the operating room. The preoperative area nurse identified the patient and marked the correct eye to be operated on. I identified the correct eye to be operated on and marked it appropriately in the outpatient surgery area. The patient was then taken into the operating room. Tetracaine eye drops were installed again in the correct eye. The eyelids and the lashes and the lid margins were scrubbed with Betadine solution. One drop of the diluted Betadine solution was placed in the conjunctival cul-de-sac for 45 seconds and then was irrigated. A drop of Tetracaine Gel was placed in the conjunctival cul-de-sac. The patient's forehead was taped to secure it during the procedure. The patient was monitored. The patient was then draped in the usual way for this procedure. An eye speculum was used to separate the eyelids. The eye was then fixated and a temporal 2.5 mm incision was made in the clear cornea temporally at the limbus. Through the incision, 0.25 cc of 1% non-preserved lidocaine was injected into the anterior chamber for intracameral anesthesia. The anterior chamber was then filled with viscoelastic. The pupil was small. I felt that it would be safer to mechanically dilate the pupil. A Malyugin ring was used at this point which dilated the pupil. That was removed at the end of the procedure prior to aspiration of the viscoelastic from the anterior chamber and posterior to the intraocular lens implant. The cataract had a great amount of cortical changes. That rendered seeing the anterior capsule difficult for a safe performance of an anterior capsulotomy. I injected an air bubble into the anterior chamber. I then injected 1 ML of vision blue solution into the anterior chamber. The vision blue solution was irrigated from the anterior chamber after 30 seconds. The anterior capsule was stained which facilitated performing the anterior capsulotomy safely. After that was completed, a cystotome was introduced into the anterior chamber and a round anterior capsulotomy was performed. The capsule was removed by a forceps. Hydrodissection was next carried utilizing a 25-gauge cannula and balanced salt solution to delineate the cortical material from the capsule and the nucleus from the cortical material. The nucleus was rotated freely into the capsular bag with no difficulty. The phaco tip of the [employer] Phacoemulsifier was introduced into the anterior chamber and two grooves were made into the nucleus 90 degrees apart. Using two spatulas resulted into the nucleus being fractured into four quadrants. The phaco tip was then used to remove each quadrant of the nucleus. Viscoelastic was used during this process to protect the corneal endothelium. Once the entire nucleus was removed, the phaco tip then was removed and the irrigation tip was introduced into the eye and the cortex was removed. The posterior capsule was polished. It was noticed that there was a tear into the posterior capsule with few vitreous strands into the pupil plan. An anterior vitrectomy was performed. A 22.00 diopter, [id number], posterior chamber lens implant, was inspected and found to be grossly normal. The implant was inserted into the implant injector cartridge; Viscoelastic again was introduced into the anterior chamber, which filled the capsular bag. The implant injector's cartridge tip was placed at the limbal wound and the posterior chamber implant was released into the capsular bag and rotated appropriately. The implant was found to be into the capsular bag and it was centered. __X___ 0.2 ml of Tri-Moxi was introduced via 27 gauge cannula into the vitreous cavity through the ciliary processes. Viscoelastic was aspirated from the anterior chamber and posterior to the intraocular lens implant from the capsular bag using the irrigating tip. The anterior chamber was irrigated and filled with 5 cc antibiotic solution (500 cc of BSS plus 2 ml of Fortaz 100 mg/ml) ( if patient was not allergic to the medication). The lips of the corneal incision were hydrated using BSS solution. The anterior chamber was checked and found to be water tight. One drop each of antibiotic, steroid and NSAID drops (refer to chart for drops used) were placed in the conjunctival cul-de-sac of the operated eye. NOTE: It was noted that there was a small opening into the posterior capsule. It was paracentral. The remainder of the posterior capsule was intact. There were a few vitreous strands coming through the pupil which were cut by Vannas scissor. Miostat was introduced into the anterior chamber at the end of the procedure which brought the pupil central and round. Patient tolerated the procedure quite well and left the operating room in satisfactory condition. DISCHARGE SUMMARY: The patient was released in stable condition. The patient and those with the patient were given an instruction sheet as of how to care for the eye after surgery as well as counseling on any abnormal laboratory studies by the postoperative RN. The patient was also given an appointment card for follow-up in the office and is to call immediately for any difficulties including but not limited to pain in the eye, decreased vision, discharge from the eye, headache and or fever. DISCHARGE DIAGNOSIS: Pseudophakia of left eye.
== END 2019-04-04 12:50 | disposition home or self-care (01) ==
LOC: SDC 08:03
PROVIDERS: ATTEND Ophthalmology
DX: H25.812 Combined forms of age-related cataract, left eye (principal); J44.9 Chronic obstructive pulmonary disease, unspecified; F41.9 Anxiety disorder, unspecified; Z79.899 Other long term (current) drug therapy
CPT/HCPCS: 99100; C1780; J0171; J2704; A9270-GY

== ENCOUNTER 2021-06-14 17:51 | Emergency (ER) | payer MEDICARE ==
--- NOTE | 2021-06-14 18:10 | ERPHSYRPT ---
- History of Present Illness Source: patient Patient Subjective Stated Complaint: weakness Triage Nursing Assessment: Patient ambulated back to ED and transferred self to bed. Patient A+O X3. Patient's skin pink, warm and dry. Patient states around 1725 he was standing when his arms, chest and whole body started to tingle. Patient states he sat down and asked for help. Patient denies pain or di scomfort. Patient states the tingling to his entire body has stopped. Timing/Duration: today Activities at Onset: none Severity of Dyspnea-Max: none Severity of Dyspnea-Current: none Possible Cause: no prior episodes Associated Symptoms: lightheadedness, weakness, dizziness, heaviness, lightheadedness, No anxiety, No cough, No chest pain/discomfort, No edema, No fever, No insomnia, No loss of appetite, No hemoptysis, No heart racing, No productive cough, No sweating Hx Tetanus, Diphtheria Vaccination/Date Given: Yes Hx Influenza Vaccination/Date Given: Yes Hx Pneumococcal Vaccination/Date Given: Yes Immunizations Up to Date: Yes <KEVIN ELLIS - Last Filed: 06/14/21 18:36> <KINJAL TORRES - Last Filed: 06/14/21 20:16> - History of Present Illness Time Seen by Provider: 06/14/21 18:08 Physician History: Patient states around 1725 he was standing when his arms, chest and whole body started to tingle. Patient states he sat down and asked for help. Patient denies pain or discomfort. Patient states the tingling to his entire body has stopped. (KEVIN ELLIS) Allergies/Adverse Reactions: No Known Drug Allergies Allergy (Verified 06/14/21 17:53) Home Medications: Albuterol Sulfate [Proair Hfa] 8.5 gm IH Q12H PRN PRN 05/11/18 [History] Alprazolam [Xanax] 0.5 mg PO QID 05/11/18 [History] Alendronate Sodium 35 mg PO WEEKLY 03/24/19 [History] Fluticasone/Umeclidin/Vilanter [Trelegy Ellipta 100-62.5-25] 1 puff IH DAILY 03/24/19 [History] Travel Risk - International Travel Have you traveled outside of the country in past 3 weeks: No - Coronavirus Screening Are you exhibiting any of the following symptoms?: No Close contact with a COVID-19 positive Pt in past 14-21 Days: No - Vaccine Status Have you recieved a Covid-19 vaccination: Yes Funeral Service Apprentice: Moderna - Vaccination Dates Date of 2cond Vaccination (if applicable): na Comment: Booster July 2020 <RHONDA, - Last Filed: 06/14/21 18:36> - Review of Systems Constitutional: Weakness, No Fever, No Chills Eyes: No Symptoms Ears, Nose, & Throat: No Symptoms Respiratory: No Cough, No Dyspnea Cardiac: No Chest Pain, No Edema, No Syncope Abdominal/Gastrointestinal: No Abdominal Pain, No Nausea, No Vomiting, No Diarrhea Genitourinary Symptoms: No Dysuria Musculoskeletal: No Back Pain, No Neck Pain Skin: No Rash Neurological: Parasthesia, No Dizziness, No Focal Weakness, No Gait Changes, No Headache, No Seizure, No Sensory Changes Psychological: No Symptoms Endocrine: No Symptoms All Other Systems: Reviewed and Negative <RHONDA - Last Filed: 06/14/21 18:36> - Past Medical History Pertinent Past Medical History: Yes Neurological History: No Pertinent History ENT History: Cataracts Cardiac History: Arrhythmia Respiratory History: COPD, Other Endocrine Medical History: No Pertinent History Musculoskeletal History: No Pertinent History GI Medical History: No Pertinent History History: No Pertinent History Psycho-Social History: Anxiety Male Reproductive Disorders: No Pertinent History Other Medical History: Former smoker. follows Dr. Kulkarni - Past Surgical History Past Surgical History: Yes Neuro Surgical History: No Pertinent History Cardiac: No Pertinent History Respiratory: No Pertinent History Gastrointestinal: Other Genitourinary: No Pertinent History Musculoskeletal: No Pertinent History Male Surgical History: No Pertinent History Other Surgical History: hx of colonoscopy 2018. Skin lesion removed from right elbow 10-15 years ago. Pt denied any other procedures or surgeries. - Social History Smoking Status: Former smoker How long have you smoked: 50 Exposure to second hand smoke: Yes (Occassional) Drug Use: none Patient Lives Alone: Yes <RHONDA, - Last Filed: 06/14/21 18:36> - Physical Exam General Appearance: no apparent distress, alert Eye Exam: PERRL/EOMI Neck Exam: normal inspection, supple Respiratory Exam: diminished breath sounds, wheezing Cardiovascular/Chest Exam: normal heart sounds, regular rate/rhythm Abdominal/Gastrointestinal Exam: soft, No tenderness, No distention, No mass Extremity Exam: non-tender, normal range of motion, normal inspection, no calf tenderness, no pedal edema Neurologic Exam: alert, oriented x 3, cooperative, senior hris analyst II-XII nml as tested, sensation nml, No motor deficits Skin Exam: normal color, warm, No dry SpO2: 95 <JASON ELLISYESH - Last Filed: 06/14/21 18:36> - Physical Exam SpO2 Interpretation: normal O2 Delivery: Room Air <KINJAL TORRES - Last Filed: 06/14/21 20:16> - Nursing Vital Signs Nursing Vital Signs: Initial Vital Signs Temperature 97.9 F 06/14/21 17:54 Pulse Rate 91 H 06/14/21 17:54 Respiratory Rate 18 06/14/21 17:54 Blood Pressure 151/95 06/14/21 17:54 O2 Sat by Pulse Oximetry 95 06/14/21 17:54 Pain Scale Pain Intensity 0 - Course Nursing assessment & vital signs reviewed: Yes EKG Interpreted by Me: Sinus Rhythm - Radiology Exams Chest X-ray Interpretation: Reviewed by me, No Pneumonia (COPD changes) <RHONDA - Last Filed: 06/14/21 18:36> Ordered Tests: Active Orders 24 hr Category Date Time Status EKG-ER Only STAT Care 06/14/21 18:04 Active IV Insertion STAT Care 06/14/21 18:04 Active Oxygen-ED Only Nasal Cannula 3 lpm Care 06/14/21 18:04 Active CHEST 2 VIEWS (PA AND LAT) Stat Exams 06/14/21 18:04 Completed CHEST WITH CONTRAST [CT] Stat Exams 06/14/21 18:47 Taken CBC W DIFF Stat Lab 06/14/21 18:18 Completed CMP Stat Lab 06/14/21 18:18 Completed COVID AG-BINAX NOW RAPID TEST Stat Lab 06/14/21 18:18 Completed D-DIMER QUANTITATIVE Stat Lab 06/14/21 18:18 Completed NT PRO BNP Stat Lab 06/14/21 18:18 Completed TROPONIN Q3H Lab 06/14/21 18:18 Completed TROPONIN Q3H Lab 06/14/21 21:15 Ordered TROPONIN Q3H Lab 06/15/21 00:15 Ordered TROPONIN Q3H Lab 06/15/21 03:15 Ordered TROPONIN Q3H Lab 06/15/21 06:15 Ordered Lab/Rad Data: Laboratory Result Diagrams 06/14/21 18:18 06/14/21 18:18 Laboratory Results 06/14/21 06/14/21 06/14/21 Range/Units 18:18 18:18 18:18 WBC (4.0-10.5) K/mm3 RBC (4.1-5.6) M/mm3 Hgb (12.5-18.0) gm/dl Hct (42-50) % MCV (78-100) fl MCH (26-32) pg MCHC (32-36) g/dl RDW (11.5-14.0) % Plt Count (150-450) K/mm3 MPV (7.5-11.0) fl Gran % (36.0-66.0) % Eos # (Auto) (0-0.5) Absolute Lymphs (auto) (1.0-4.6) Absolute Monos (auto) (0.0-1.3) Lymphocytes % (24.0-44.0) % Monocytes % (0.0-12.0) % Eosinophils % (0.00-5.0) % Basophils % (0.0-0.4) % Absolute Granulocytes (1.4-6.9) Basophils # (0-0.4) D-Dimer 2211 H* (215-500) ng/mL Sodium (137-145) mmol/L Potassium (3.5-5.1) mmol/L Chloride (98-107) mmol/L Carbon Dioxide (22-30) mmol/L Anion Gap (5-15) MEQ/L BUN (9-20) mg/dL Creatinine (0.66-1.25) mg/dL Estimated GFR ML/MIN Glucose (74-106) mg/dL Calcium (8.4-10.2) mg/dL Total Bilirubin (0.2-1.3) mg/dL AST (17-59) U/L ALT (0-50) U/L Alkaline Phosphatase (38-126) U/L Troponin I < 0.012 (0.000-0.034) ng/mL NT-Pro-B Natriuret Pep (0-900) pg/mL Serum Total Protein (6.3-8.2) g/dL Albumin (3.5-5.0) g/dL SARS-CoV-2 Ag (Rapid) NEGATIVE (NEGATIVE) 06/14/21 06/14/21 Range/Units 18:18 18:18 WBC 8.6 (4.0-10.5) K/mm3 RBC 4.30 (4.1-5.6) M/mm3 Hgb 13.6 (12.5-18.0) gm/dl Hct 42.1 (42-50) % MCV 97.9 (78-100) fl MCH 31.6 (26-32) pg MCHC 32.3 (32-36) g/dl RDW 14.0 (11.5-14.0) % Plt Count 235 (150-450) K/mm3 MPV 9.7 (7.5-11.0) fl Gran % 68.2 H (36.0-66.0) % Eos # (Auto) 0.39 (0-0.5) Absolute Lymphs (auto) 1.58 (1.0-4.6) Absolute Monos (auto) 0.71 (0.0-1.3) Lymphocytes % 18.5 L (24.0-44.0) % Monocytes % 8.3 (0.0-12.0) % Eosinophils % 4.6 (0.00-5.0) % Basophils % 0.4 (0.0-0.4) % Absolute Granulocytes 5.85 (1.4-6.9) Basophils # 0.03 (0-0.4) D-Dimer (215-500) ng/mL Sodium 139 (137-145) mmol/L Potassium 4.2 (3.5-5.1) mmol/L Chloride 101 (98-107) mmol/L Carbon Dioxide 28 (22-30) mmol/L Anion Gap 13.7 (5-15) MEQ/L BUN 24 H (9-20) mg/dL Creatinine 0.82 (0.66-1.25) mg/dL Estimated GFR > 60.0 ML/MIN Glucose 100 (74-106) mg/dL Calcium 8.8 (8.4-10.2) mg/dL Total Bilirubin 0.50 (0.2-1.3) mg/dL AST 17 (17-59) U/L ALT 12 (0-50) U/L Alkaline Phosphatase 65 (38-126) U/L Troponin I (0.000-0.034) ng/mL NT-Pro-B Natriuret Pep 101 (0-900) pg/mL Serum Total Protein 7.1 (6.3-8.2) g/dL Albumin 4.1 (3.5-5.0) g/dL SARS-CoV-2 Ag (Rapid) (NEGATIVE) - Progress Air Movement: fair <RHONDAJASONKEVIN - Last Filed: 06/14/21 18:36> - Progress Progress: improved Blood Culture(s) Obtained: No Antibiotics given: No <KINJAL TORRES - Last Filed: 06/14/21 20:16> <KEVIN ELLIS - Last Filed: 06/14/21 18:36> - Departure Departure Disposition: Home Critical Care Time: No <KINJAL TORRES - Last Filed: 06/14/21 20:16> - Departure Clinical Impression: Paresthesia, Elevated d-dimer Condition: Stable Referrals: CASANDRA HENSLEY MD [Primary Care Provider] - Follow up/PCP as directed Instructions: Paresthesias (DC) Additional Instructions: Patient was instructed to only light activity this weekend and to follow-up with his PCP on Wednesday
[2021-06-14 18:22] LABS: Absolute Neutrophil Ct (ANC) 5.85 (1.4-6.9); Basophil (Absolute #) 0.03 (0-0.4); Eosinophil % 4.6 % (0.00-5.0); Eosinophil (Absolute #) 0.39 (0-0.5); Hematocrit 42.1 % (42-50); Hemoglobin 13.6 gm/dl (12.5-18.0); Lymphocyte (Absolute #) 1.58 (1.0-4.6); Lymphocytes % 18.5 % (24.0-44.0); Mean Cell Volume 97.9 fl (78-100); Mean Corpuscular Hemoglobin 31.6 pg (26-32); Mean Corpuscular Hgb Concent. 32.3 g/dl (32-36); Mean Platelet Volume 9.7 fl (7.5-11.0); Monocyte (Absolute #) 0.71 (0.0-1.3); Monocytes % 8.3 % (0.0-12.0); Neutrophil % 68.2 % (36.0-66.0); Platelet Count 235 K/mm3 (150-450); White Blood Count 8.6 K/mm3 (4.0-10.5)
[2021-06-14 18:38] LABS: COVID AG -BINAX NOW RAPID TEST NEGATIVE (NEGATIVE)
[2021-06-14 18:43] LABS: ALBUMIN 4.1 g/dL (3.5-5.0); ALKALINE PHOSPHATASE 65 U/L (38-126); ANION GAP 13.7 MEQ/L (5-15); BLOOD UREA NITROGEN 24 mg/dL (9-20); CHLORIDE 101 mmol/L (98-107); Calcium 8.8 mg/dL (8.4-10.2); Carbon Dioxide 28 mmol/L (22-30); Creatinine 1 0.82 mg/dL (0.66-1.25); EST GLOMERULAR FILTRATION RATE > 60.0 ML/MIN; Glucose 100 mg/dL (74-106); NT PRO BNP 101 pg/mL (0-900); Potassium 4.2 mmol/L (3.5-5.1); SGOT/AST 17 U/L (17-59); SGPT/ALT 12 U/L (0-50); SODIUM 139 mmol/L (137-145); Total Protein 7.1 g/dL (6.3-8.2)
--- NOTE | 2021-06-14 18:47 | XRAY ---
Indication: Weakness. Comparison: June 19, 2018. PA/lateral chest again demonstrates COPD, minimal bibasilar atelectasis/scarring, and tiny calcified granulomas. Heart not enlarged. Bony thorax intact again with osteopenia and degenerative changes. No new/acute findings.
[2021-06-14 20:14] VITALS: BP 122/80; PULSE 79; O2SAT 98
--- NOTE | 2021-06-14 22:02 | XRAY ---
Indication: Weakness. Elevated d-dimer. Multiple contiguous axial images obtained through the chest using 100 cc Isovue 370 contrast and PE protocol. Comparison: June 20, 2018. Good opacification of the pulmonary arteries to include the lobar and segmental branches. No pulmonary embolus. Heart is not enlarged. Aorta is normal in course and caliber. Stable tiny right hilar calcified nodes. No pathologic mediastinal/hilar lymphadenopathy. Lungs again demonstrates diffuse pulmonary emphysema with scattered fibrosis/scarring and calcified/noncalcified nodules. No suspicious pulmonary mass, infiltrate, or effusion. Bony thorax intact again with mild degenerative changes throughout the spine. Limited upper abdomen again demonstrates tiny hepatic cyst and 6 cm left renal cyst. Impression: 1. Continued negative pulmonary embolus. No new/acute cardiopulmonary normalities. 3. Again pulmonary emphysema, scattered fibrosis/scarring, hepatic/left renal cysts, and old granulomatous disease. Comment: Preliminary interpretation made by C. No critical discrepancy.
== END 2021-06-14 20:23 | disposition home or self-care (01) ==
LOC: ED 17:51
DX: R20.2 Paresthesia of skin (principal); R79.1 Abnormal coagulation profile; R42 Dizziness and giddiness; R53.1 Weakness; J44.9 Chronic obstructive pulmonary disease, unspecified
CPT/HCPCS: 36000; 36415; 71046; 71260; 80053; 83880; 84484; 85025; 85379; 93005; 99000; 99284

== ENCOUNTER 2024-06-16 20:37 | Emergency (ER) | payer MEDICARE ==
[2024-06-16 20:53] VITALS: TEMP 98.3
--- NOTE | 2024-06-16 21:06 | ERPHSYRPT ---
- History of Present Illness Time Seen by Provider: 06/16/24 20:55 Source: patient, family Exam Limitations: no limitations Patient Subjective Stated Complaint: c/o hypertension Triage Nursing Assessment: Patient brought into ED by son with c/o hypertension. patient states that he had 205/158 this morning and patient took an extra BP pill. Patient had a 137/66 prior to arrival. patient had numbness going up into his neck and shoulders and head head pressure. patient's gait is steady, skin w/n/d, patient felt slightly short of breath but feeling better with rest, patient doesn't appear to be in any stress at this time. Physician History: This is a 78-year-old white male patient of Dr. Hensley who was brought to the emergency department by private vehicle accompanied by his son because of concerned of high blood pressure that occurred earlier today with associated head pressure, numbness of both shoulders and neck pain. Patient denies chest pain and he denies shortness of breath. His systolic blood pressure was 205 mmHg earlier today when he was having symptoms and therefore he took a second blood pressure medication. Symptoms seem to improve as the blood pressure lowered. His blood pressure prior to arrival was taken and it was 137/66. His first blood pressure reading here in the emergency department is 188/93. However tenderness later second reading showed 144/87. Patient states his symptoms have resolved. Patient does have a history of arrhythmia, COPD and anxiety. Timing/Duration: today Severity: mild Associated Symptoms: denies symptoms Allergies/Adverse Reactions: No Known Drug Allergies Allergy (Verified 06/16/24 20:53) Home Medications: Albuterol Sulfate [Proair Hfa] 8.5 gm IH Q12H PRN PRN 05/11/18 [History] Alprazolam [Xanax] 0.5 mg PO QID 05/11/18 [History] Fluticasone/Umeclidin/Vilanter [Trelegy Ellipta 100-62.5-25] 1 puff IH DAILY 03/24/19 [History] Montelukast Sodium 10 mg [Singulair 10 MG] 10 mg PO DAILY 06/16/24 [History] Mv-Min/Folic/K1/Lycopen/Lutein [Centrum Silver Men Tablet] 1 tab PO HS 06/16/24 [History] Sertraline HCl 50 mg [Zoloft 50 mg Tablet] 50 mg PO DAILY 06/16/24 [History] Simvastatin 20Mg [Zocor 20Mg] 20 mg PO DAILY 06/16/24 [History] Hx Tetanus, Diphtheria Vaccination/Date Given: Yes Hx Influenza Vaccination/Date Given: Yes Hx Pneumococcal Vaccination/Date Given: Yes Travel Risk - International Travel Have you traveled outside of the country in past 3 weeks: No - Emerging Infectious Disease Are you exhibiting symptoms associated with any current EIDs: No - Review of Systems Constitutional: No Symptoms Eyes: No Symptoms Ears, Nose, & Throat: No Symptoms Respiratory: No Symptoms Cardiac: No Symptoms Abdominal/Gastrointestinal: No Symptoms Genitourinary Symptoms: No Symptoms Musculoskeletal: No Symptoms, Other (Patient's neck pain has resolved) Skin: No Symptoms Neurological: No Symptoms, Headache (Earlier but now this has resolved), Other (The numbness in both of his shoulders has resolved) Psychological: No Symptoms Endocrine: No Symptoms Hematologic/Lymphatic: No Symptoms Immunological/Allergic: No Symptoms All Other Systems: Reviewed and Negative - Past Medical History Pertinent Past Medical History: Yes Neurological History: No Pertinent History ENT History: Cataracts Cardiac History: Arrhythmia Respiratory History: COPD, Other Endocrine Medical History: No Pertinent History Musculoskeletal History: No Pertinent History GI Medical History: No Pertinent History History: No Pertinent History Psycho-Social History: Anxiety Male Reproductive Disorders: No Pertinent History Other Medical History: Former smoker. follows [facility] - Past Surgical History Past Surgical History: Yes Neuro Surgical History: No Pertinent History Cardiac: No Pertinent History Respiratory: No Pertinent History Gastrointestinal: Other Genitourinary: No Pertinent History Musculoskeletal: No Pertinent History Male Surgical History: No Pertinent History Other Surgical History: hx of colonoscopy 2018. Skin lesion removed from right elbow 10-15 years ago. Pt denied any other procedures or surgeries. Heart cath in 2012 - Social History Smoking Status: Former smoker Exposure to second hand smoke: No Drug Use: none - Social Determinants of Health Will the patient participate in the screening: Declined to provide - Nursing Vital Signs Nursing Vital Signs: Initial Vital Signs Temperature 98.3 F 06/16/24 20:42 Pulse Rate 87 06/16/24 20:42 Respiratory Rate 23 06/16/24 20:42 Blood Pressure 188/93 06/16/24 20:42 O2 Sat by Pulse Oximetry 93 L 06/16/24 20:42 Pain Scale Pain Intensity 0 - Physical Exam General Appearance: no apparent distress, alert, anxiety, obese Eye Exam: PERRL/EOMI, eyes nml inspection Ears, Nose, Throat Exam: normal ENT inspection, moist mucous membranes, tonsillar exudate Neck Exam: normal inspection, non-tender, supple Respiratory Exam: normal breath sounds, lungs clear, airway intact, No chest tenderness, No respiratory distress Cardiovascular Exam: regular rate/rhythm, normal heart sounds, normal peripheral pulses Gastrointestinal/Abdomen Exam: soft, normal bowel sounds, No tenderness Rectal Exam: not done Back Exam: normal inspection, normal range of motion, No CVA tenderness, No vertebral tenderness Extremity Exam: normal inspection, normal range of motion, pelvis stable Neurologic Exam: alert, oriented x 3, cooperative, fermentation scientist II-XII nml as tested, nml cerebellar function, nml station & gait, sensation nml Skin Exam: normal color, warm, dry Lymphatic Exam: No adenopathy SpO2 Interpretation: borderline oxygenation SpO2: 93 O2 Delivery: Room Air - Course Nursing assessment & vital signs reviewed: Yes EKG Interpreted by Me: RATE (84), Sinus Rhythm, NORMAL AXIS, NORMAL INTERVALS, NORMAL QRS, NORMAL ST-T, Other (No acute ischemic changes. QTc is 420) Ordered Tests: Active Orders 24 hr Category Date Time Status [employer] STAT Care 06/16/24 21:06 Active EKG-ER Only STAT Care 06/16/24 21:06 Active IV Insertion STAT Care 06/16/24 21:06 Active NPO (ED) STAT Care 06/16/24 21:06 Active Pulse Oximetry (ED) STAT Care 06/16/24 21:06 Active HEAD WITHOUT CONTRAST [CT] Stat Exams 06/16/24 21:06 Taken CBC W DIFF Stat Lab 06/16/24 21:13 Completed CMP Stat Lab 06/16/24 21:13 Completed MAGNESIUM Stat Lab 06/16/24 21:13 Completed TROPONIN Q4H Lab 06/16/24 21:13 Completed TROPONIN Q4H Lab 06/17/24 01:15 Ordered TROPONIN Q4H Lab 06/17/24 05:15 Ordered UA W/RFX UR CULTURE Stat Lab 06/16/24 22:00 Completed Lab/Rad Data: Laboratory Result Diagrams 06/16/24 21:13 06/16/24 21:13 Laboratory Results 06/16/24 06/16/24 06/16/24 Range/Units 22:00 21:13 21:13 WBC (4.23-9.07) x10^3/uL RBC (4.63-6.08) x10^6/uL Hgb (13.7-17.5) g/dL Hct (40.1-51.0) % MCV (79.0-92.2) fL MCH (25.7-32.2) pg MCHC (32.3-36.5) g/dL RDW (11.6-14.4) % Plt Count (163-337) x10^3/uL MPV (9.4-12.4) fL Gran % (34.0-67.9) % Immature Gran % (Auto) (0.001-0.429) % Nucleat RBC Rel Count (0.00-0.2) % Eos # (Auto) (0.04-0.54) x10^3/uL Immature Gran # (Auto) (0.001-0.031) x10^3u/L Absolute Lymphs (auto) (1.32-3.57) x10^3/uL Absolute Monos (auto) (0.30-0.82) x10^3/uL Absolute Nucleated RBC (0.00-0.012) x10^3u/L Lymphocytes % (21.8-53.1) % Monocytes % (5.3-12.2) % Eosinophils % (0.8-7.0) % Basophils % (0.2-1.2) % Absolute Granulocytes (1.78-5.38) x10^3/uL Basophils # (0.01-0.08) x10^3/uL Sodium 139 (135-145) mmol/L Potassium 4.1 (3.5-5.1) mmol/L Chloride 103 (98-107) mmol/L Carbon Dioxide 27 (22-30) mmol/L Anion Gap 12.9 (5-15) MEQ/L BUN 30 H (9-20) mg/dL Creatinine 0.70 (0.66-1.25) mg/dL Estimated GFR 94.9 ML/MIN Glucose 131 H (74-106) mg/dL Calcium 9.8 (8.4-10.2) mg/dL Magnesium 2.2 (1.6-2.3) mg/dL Total Bilirubin 0.30 (0.2-1.3) mg/dL AST 26 (17-59) U/L ALT 30 (0-50) U/L Alkaline Phosphatase 77 (38-126) U/L Troponin I < 0.012 (0.000-0.033) ng/mL Serum Total Protein 6.9 (6.3-8.2) g/dL Albumin 4.2 (3.5-5.0) g/dL Urine Color Yellow (Yellow) Urine Appearance Clear (Clear) Urine pH 7.0 (4.6-8.0) Ur Specific [place] 1.025 (1.005-1.030) Urine Protein Negative (Negative) Urine Glucose (UA) Negative (Negative) mg/dL Urine Ketones Negative (Negative) Urine Blood Negative (Negative) Urine Nitrite Negative (Negative) Urine Bilirubin Negative (Negative) Urine Urobilinogen 1.0 A (0.2) mg/dL Ur Leukocyte Esterase Negative (Negative) U Hyaline Cast (Auto) NONE SEEN (0-2) /LPF Urine Microscopic RBC 3-5 (0-5) /HPF Urine Microscopic WBC 0-2 (0-5) /HPF Ur Epithelial Cells None Seen (None Seen) /HPF Urine Bacteria None Seen (None Seen) /HPF Urine Culture Reflexed NO (NO) 06/16/24 Range/Units 21:13 WBC 16.1 H (4.23-9.07) x10^3/uL RBC 4.62 L (4.63-6.08) x10^6/uL Hgb 14.6 (13.7-17.5) g/dL Hct 43.4 (40.1-51.0) % MCV 93.9 H (79.0-92.2) fL MCH 31.6 (25.7-32.2) pg MCHC 33.6 (32.3-36.5) g/dL RDW 13.9 (11.6-14.4) % Plt Count 357 H (163-337) x10^3/uL MPV 9.3 L (9.4-12.4) fL Gran % 90.1 H (34.0-67.9) % Immature Gran % (Auto) 1.2 H (0.001-0.429) % Nucleat RBC Rel Count 0.0 (0.00-0.2) % Eos # (Auto) 0.01 L (0.04-0.54) x10^3/uL Immature Gran # (Auto) 0.19 H (0.001-0.031) x10^3u/L Absolute Lymphs (auto) 0.81 L (1.32-3.57) x10^3/uL Absolute Monos (auto) 0.54 (0.30-0.82) x10^3/uL Absolute Nucleated RBC 0.00 (0.00-0.012) x10^3u/L Lymphocytes % 5.0 L (21.8-53.1) % Monocytes % 3.4 L (5.3-12.2) % Eosinophils % 0.1 L (0.8-7.0) % Basophils % 0.2 (0.2-1.2) % Absolute Granulocytes 14.48 H (1.78-5.38) x10^3/uL Basophils # 0.03 (0.01-0.08) x10^3/uL Sodium (135-145) mmol/L Potassium (3.5-5.1) mmol/L Chloride (98-107) mmol/L Carbon Dioxide (22-30) mmol/L Anion Gap (5-15) MEQ/L BUN (9-20) mg/dL Creatinine (0.66-1.25) mg/dL Estimated GFR ML/MIN Glucose (74-106) mg/dL Calcium (8.4-10.2) mg/dL Magnesium (1.6-2.3) mg/dL Total Bilirubin (0.2-1.3) mg/dL AST (17-59) U/L ALT (0-50) U/L Alkaline Phosphatase (38-126) U/L Troponin I (0.000-0.033) ng/mL Serum Total Protein (6.3-8.2) g/dL Albumin (3.5-5.0) g/dL Urine Color (Yellow) Urine Appearance (Clear) Urine pH (4.6-8.0) Ur Specific [place] (1.005-1.030) Urine Protein (Negative) Urine Glucose (UA) (Negative) mg/dL Urine Ketones (Negative) Urine Blood (Negative) Urine Nitrite (Negative) Urine Bilirubin (Negative) Urine Urobilinogen (0.2) mg/dL Ur Leukocyte Esterase (Negative) U Hyaline Cast (Auto) (0-2) /LPF Urine Microscopic RBC (0-5) /HPF Urine Microscopic WBC (0-5) /HPF Ur Epithelial Cells (None Seen) /HPF Urine Bacteria (None Seen) /HPF Urine Culture Reflexed (NO) - Progress Progress: improved Progress Note: 06/16/24 21:18 My medical decision making in the assignment of moderate complexity to this patient's medical issue today is based on review of the patient's past medical history, review of the patient's medication list, review patient drug allergy l ist, history of present illness and physical findings on examination. The workup of this patient includes placement of intravenous line, CBC, CMP, magnesium level, twelve-lead EKG, troponin level, urinalysis and CT scan of the head without contrast. Differential diagnosis includes but is not limited to anxiety about health, hypertension, arrhythmia, myocardial infarction, electrolyte abnormalities, urinary tract infection, dehydration 06/16/24 22:[address] scan of the head without contrast was interpreted by the radiologist. The impression states nonacute senile brain. There are no comparison films. 06/16/24 23:09 I interpreted the patient's laboratory data results. Based on the laboratory data results, the patient has a leukocytosis with a left shift. We will place him on oral Levaquin as I do not have a source for his leukocytosis. Counseled pt/family regarding: lab results, diagnosis, need for follow-up, rad results - Departure Departure Disposition: Home Clinical Impression: Leukocytosis Condition: Stable Critical Care Time: No Referrals: CASANDRA HENSLEY MD [Primary Care Provider] - Follow up/PCP as directed Additional Instructions: Drink plenty of clear liquids before advancing your diet. Take your antibiotics as prescribed. Take your other medications as prescribed. Call your primary care provider on Wednesday, June 19, 2024. Make arrangements for follow-up appointment to be seen in the next 3 to 5 days. Prescriptions: Ciprofloxacin [Cipro 500 MG] 500 mg PO BID #10 tablet
[2024-06-16 21:15] LABS: Absolute Neutrophil Ct (ANC) 14.48 x10^3/uL (1.78-5.38); BASOPHIL % 0.2 % (0.2-1.2); Basophil (Absolute #) 0.03 x10^3/uL (0.01-0.08); Eosinophil % 0.1 % (0.8-7.0); Eosinophil (Absolute #) 0.01 x10^3/uL (0.04-0.54); Hematocrit 43.4 % (40.1-51.0); Hemoglobin 14.6 g/dL (13.7-17.5); IMMATURE GRAN # 0.19 x10^3u/L (0.001-0.031); IMMATURE GRAN % 1.2 % (0.001-0.429); Lymphocyte (Absolute #) 0.81 x10^3/uL (1.32-3.57); Mean Cell Volume 93.9 fL (79.0-92.2); Mean Corpuscular Hemoglobin 31.6 pg (25.7-32.2); Mean Corpuscular Hgb Concent. 33.6 g/dL (32.3-36.5); Mean Platelet Volume 9.3 fL (9.4-12.4); Monocyte (Absolute #) 0.54 x10^3/uL (0.30-0.82); Monocytes % 3.4 % (5.3-12.2); Neutrophil % 90.1 % (34.0-67.9); Platelet Count 357 x10^3/uL (163-337); Red Blood Count 4.62 x10^6/uL (4.63-6.08); Red Cell Distribution Width 13.9 % (11.6-14.4); White Blood Count 16.1 x10^3/uL (4.23-9.07)
[2024-06-16 21:22] LABS: ALBUMIN 4.2 g/dL (3.5-5.0); ANION GAP 12.9 MEQ/L (5-15); BILIRUBIN,TOTAL 0.3 mg/dL (0.2-1.3); Calcium 9.8 mg/dL (8.4-10.2); Creatinine 1 0.7 mg/dL (0.66-1.25); EST GLOMERULAR FILTRATION RATE 94.9 ML/MIN; MAGNESIUM 2.2 mg/dL (1.6-2.3); Potassium 4.1 mmol/L (3.5-5.1); Total Protein 6.9 g/dL (6.3-8.2)
[2024-06-16 22:33] LABS: Appearance Clear (Clear); Bacteria None Seen /HPF (None Seen); Bilirubin Negative (Negative); Blood Negative (Negative); Epithelial Cells None Seen /HPF (None Seen); Glucose, Urine Negative (Negative); Hyaline Casts NONE SEEN /LPF (0-2); Ketones Negative (Negative); Leukocyte Esterase Negative (Negative); Nitrite Negative (Negative); Protein,Urine Dip Negative (Negative); Specific Gravity 1.025 (1.005-1.030); WBC 0-2 /HPF (0-5)
[2024-06-16 23:10] VITALS: BP 126/70; PULSE 66; RESP 14
[2024-06-16 23:12] VITALS: O2SAT 93
[2024-06-16] MEDS: Levofloxacin 500 MG Tablet PO ONE (23:14)
[2024-06-16] MEDS ORDERED: Levofloxacin 500 MG Tablet ONE (23:14)
--- NOTE | 2024-06-17 07:55 | XRAY ---
Indication: Head pressure. Hypertension. Multiple contiguous axial images obtained through the head without contrast. Comparison: None Age-appropriate global atrophy and minimal periventricular degenerative micro-ischemia bilaterally. No acute intracranial hemorrhage, abnormal extra-axial fluid collection, or mass effect. Fourth ventricle is midline without hydrocephalus. Bony calvarium intact. Visualized paranasal sinuses and mastoid air cells are clear. Impression: Nonacute senile brain.
== END 2024-06-16 23:28 | disposition home or self-care (01) ==
LOC: ED 20:37
DX: D72.829 Elevated white blood cell count, unspecified (principal); I10 Essential (primary) hypertension; Z79.899 Other long term (current) drug therapy
CPT/HCPCS: 36415; 70450; 80053; 81001; 83735; 84484; 85025; 93005; 93041; 94760; 99284; 99285; A9270-GY

== ENCOUNTER 2024-07-17 09:25 | Observation (INO) | payer MEDICARE ==
[2024-07-17] MEDS ORDERED: DUONEB 0.5-3 MG/3 ml Neb IH ONE (09:32)
[2024-07-17] MEDS: DUONEB 0.5-3 MG/3 ml Neb IH ONE (09:36)
[2024-07-17] MEDS ORDERED: solu-MEDROL ONE (10:03)
[2024-07-17] MEDS ORDERED: Sterile H2O 10 ml IJ ONE (10:03)
[2024-07-17] MEDS ORDERED: Sodium Chloride 0.9% 250 ML 250 ML IV ONE (10:04)
[2024-07-17] MEDS ORDERED: ZITHROMAX IV IV ONE (10:04)
--- NOTE | 2024-07-17 10:05 | ERPHSYRPT ---
- History of Present Illness Time Seen by Provider: 07/17/24 09:40 Source: patient Exam Limitations: no limitations Patient Subjective Stated Complaint: Pt states "I have been short of breath for about a month but it is getting worse and worse. I have been wearing my oxygen more and more lately" Triage Nursing Assessment: Pt presented alert and oriented x 3, skin pwd. Pt tachypneic. PT able to speak in four to 5 word sentences. Pt voice is hoarse and he is in tripod position. Physician History: 78-year-old male history of COPD presents to our ED for evaluation of shortness of breath. Patient intermittently uses oxygen nasal cannula. Patient reports that he has been short of breath over the past month. Shortness of breath has got progressively worse. Patient is a former smoker quit 7 years ago. Patient has a cough as well. Cough is occasionally productive of clear yellow sputum. No fever. No rash. No nausea no vomiting no diarrhea. Symptoms are mild to moderate in intensity. Symptoms are progressive. No specific worsening or improving factors. Patient voices no other complaints or concerns at this time. Portions of this note were created with voice recognition technology. There may be grammatical, spelling, punctuation or sound alike errors Timing/Duration: today Activities at Onset: activity Severity of Dyspnea-Max: moderate Severity of Dyspnea-Current: moderate Possible Cause: occasional episodes Modifying Factors: Improves With: activity Associated Symptoms: cough Allergies/Adverse Reactions: No Known Drug Allergies Allergy (Verified 06/16/24 20:53) Home Medications: ALPRAZolam [Alprazolam] 0.5 mg PO TID 07/17/24 [History] Albuterol Sulfate [Albuterol Sulfate Hfa] 2 puff IH DAILY PRN 07/17/24 [History] Fluticasone/Umeclidin/Vilanter [Trelegy Ellipta 200-62.5-25] 1 each IH DAILY 07/17/24 [History] Metformin HCl [Metformin HCl ER] 500 mg PO DAILY 07/17/24 [History] Montelukast Sodium 10 mg [Singulair 10 MG] 10 mg PO DAILY 07/17/24 [History] Prednisone 10 mg [Deltasone 10 mg] 10 mg PO DAILY 07/17/24 [History] Sertraline HCl [Zoloft] 100 mg PO DAILY 07/17/24 [History] Simvastatin 20Mg [Zocor 20Mg] 20 mg PO DAILY 07/17/24 [History] dilTIAZem HCL [Diltiazem 24Hr ER (Cd)] 120 mg PO DAILY 07/17/24 [History] Hx Tetanus, Diphtheria Vaccination/Date Given: Yes Hx Influenza Vaccination/Date Given: Yes Hx Pneumococcal Vaccination/Date Given: Yes Immunizations Up to Date: No Travel Risk - International Travel Have you traveled outside of the country in past 3 weeks: No - Emerging Infectious Disease Are you exhibiting symptoms associated with any current EIDs: Yes Symptoms: Shortness of Breath - Review of Systems Constitutional: No Symptoms, No Fever, No Chills Eyes: No Symptoms Ears, Nose, & Throat: No Symptoms Respiratory: No Symptoms, No Cough, No Dyspnea Cardiac: No Symptoms, No Chest Pain, No Edema, No Syncope Abdominal/Gastrointestinal: No Symptoms, No Abdominal Pain, No Nausea, No Vomiting, No Diarrhea Genitourinary Symptoms: No Symptoms, No Dysuria Musculoskeletal: No Symptoms, No Back Pain, No Neck Pain Skin: No Symptoms, No Rash Neurological: No Symptoms, No Dizziness, No Focal Weakness, No Sensory Changes Psychological: No Symptoms Endocrine: No Symptoms Hematologic/Lymphatic: No Symptoms Immunological/Allergic: No Symptoms All Other Systems: Reviewed and Negative - Past Medical History Pertinent Past Medical History: Yes Neurological History: No Pertinent History ENT History: Cataracts Cardiac History: Arrhythmia Respiratory History: COPD, Other Endocrine Medical History: No Pertinent History Musculoskeletal History: No Pertinent History GI Medical History: No Pertinent History History: No Pertinent History Psycho-Social History: Anxiety Male Reproductive Disorders: No Pertinent History Other Medical History: Former smoker. follows [facility] - Past Surgical History Past Surgical History: Yes Neuro Surgical History: No Pertinent History Cardiac: No Pertinent History Respiratory: No Pertinent History Gastrointestinal: Other Genitourinary: No Pertinent History Musculoskeletal: No Pertinent History Male Surgical History: No Pertinent History Other Surgical History: hx of colonoscopy 2018. Skin lesion removed from right elbow 10-15 years ago. Pt denied any other procedures or surgeries. Heart cath in 2012 - Social History Smoking Status: Former smoker Exposure to second hand smoke: Yes Drug Use: none - Social Determinants of Health Will the patient participate in the screening: Declined to provide - Nursing Vital Signs Nursing Vital Signs: Initial Vital Signs Temperature 98.1 F 07/17/24 09:27 Pulse Rate 90 07/17/24 09:27 Respiratory Rate 28 H 07/17/24 09:27 Blood Pressure 141/85 07/17/24 09:27 O2 Sat by Pulse Oximetry 96 07/17/24 09:27 Pain Scale Pain Intensity 0 - Physical Exam General Appearance: no apparent distress, alert Eye Exam: PERRL/EOMI, eyes nml inspection Neck Exam: normal inspection, supple Cardiovascular/Chest Exam: normal heart sounds, regular rate/rhythm Abdominal/Gastrointestinal Exam: soft, No tenderness, No distention, No mass Extremity Exam: non-tender, normal range of motion, normal inspection, no calf tenderness, no pedal edema Neurologic Exam: alert, oriented x 3, cooperative, instrument repair technician II-XII nml as tested, sensation nml, No motor deficits Skin Exam: normal color, warm, No dry SpO2 Interpretation: normal SpO2: 98 O2 Delivery: Room Air - Course Nursing assessment & vital signs reviewed: Yes EKG Interpreted by Me: RATE (84), NORMAL AXIS, NORMAL INTERVALS, NORMAL QRS - CT Exams Chest CT Interpretation: Tele-radiologist Report (Right upper right lower and left lower lobe infiltrates ) Ordered Tests: Active Orders 24 hr Category Date Time Status Operations Lead STAT Care 07/17/24 09:39 Active EKG-ER Only STAT Care 07/17/24 09:38 Active IV Insertion STAT Care 07/17/24 09:38 Active Pulse Oximetry (ED) STAT Care 07/17/24 09:38 Active CHEST WITH CONTRAST [CT] Stat Exams 07/17/24 10:47 Completed BLOOD CULTURE Stat Lab 07/17/24 10:02 Ordered CBC W DIFF Stat Lab 07/17/24 09:35 Completed CMP Stat Lab 07/17/24 09:35 Completed D-DIMER QUANTITATIVE Stat Lab 07/17/24 09:35 Completed NT PRO BNPII Stat Lab 07/17/24 09:35 Completed TROPONIN Q4H Lab 07/17/24 09:35 Completed TROPONIN Q4H Lab 07/17/24 13:45 Ordered TROPONIN Q4H Lab 07/17/24 17:45 Ordered Respiratory Therapy Assessment DAILY RT 07/17/24 09:34 Active Transfer Order Routine Transfer 07/17/24 Ordered Medication Summary Discontinued Medications Generic Name Dose Route Start Last Admin Trade Name Freq PRN Reason Stop Dose Admin Albuterol/Ipratropium 3 ml 07/17/24 09:33 07/17/24 09:36 Ipratropium/Albuterol Sulfate 3 Ml Ampul.Neb IH 07/17/24 09:34 3 ml STAT ONE Administration Albuterol/Ipratropium Confirm 07/17/24 09:32 Ipratropium/Albuterol Sulfate 3 Ml Ampul.Neb Administered 07/17/24 09:33 Dose 3 ml IH .STK-MED ONE Azithromycin Confirm 07/17/24 10:04 Azithromycin Inj Administered 07/17/24 10:05 Dose 500 mg IV .STK-MED ONE Methylprednisolone Sodium 0 mg 07/17/24 09:38 07/17/24 10:10 Succinate 125 mg/ Sterile IV 07/17/24 09:39 125 mg Water 2 ml STAT ONE Administration Ceftriaxone Sodium 2 gm in 100 mls @ 200 mls/hr 07/17/24 09:38 07/17/24 12:20 Rocephin 2 Gm/100 Ml Nacl IV 07/17/24 10:07 Infused STAT ONE Infusion Azithromycin 500 mg/ Sodium 250 mls @ 250 mls/hr 07/17/24 09:38 07/17/24 11:35 Chloride IV 07/17/24 10:37 Infused STAT STA Infusion Sodium Chloride Confirm 07/17/24 10:04 Sodium Chloride 0.9% 250 Ml Administered 07/17/24 10:05 Dose 250 mls @ ud IV .STK-MED ONE Ceftriaxone Sodium Confirm 07/17/24 11:39 Rocephin 2 Gm/100 Ml Nacl Administered 07/17/24 11:40 Dose 2 gm in 100 mls @ ud IV .STK-MED ONE Methylprednisolone Sodium Succinate Confirm 07/17/24 10:03 Methylprednis Sod Succ 125 Mg/2 Ml Vial Administered 07/17/24 10:04 Dose 125 mg .ROUTE .STK-MED ONE Sterile Water Confirm 07/17/24 10:03 Water For Injection,Sterile 10 Ml Vial Administered 07/17/24 10:04 Dose 10 ml IJ .STK-MED ONE Lab/Rad Data: Laboratory Result Diagrams 07/17/24 09:35 07/17/24 09:35 Laboratory Results 07/17/24 07/17/24 07/17/24 Range/Units 10:02 09:35 09:35 WBC (4.23-9.07) x10^3/uL RBC (4.63-6.08) x10^6/uL Hgb (13.7-17.5) g/dL Hct (40.1-51.0) % MCV (79.0-92.2) fL MCH (25.7-32.2) pg MCHC (32.3-36.5) g/dL RDW (11.6-14.4) % Plt Count (163-337) x10^3/uL MPV (9.4-12.4) fL Gran % (34.0-67.9) % Immature Gran % (Auto) (0.001-0.429) % Nucleat RBC Rel Count (0.00-0.2) % Eos # (Auto) (0.04-0.54) x10^3/uL Immature Gran # (Auto) (0.001-0.031) x10^3u/L Absolute Lymphs (auto) (1.32-3.57) x10^3/uL Absolute Monos (auto) (0.30-0.82) x10^3/uL Absolute Nucleated RBC (0.00-0.012) x10^3u/L Lymphocytes % (21.8-53.1) % Monocytes % (5.3-12.2) % Eosinophils % (0.8-7.0) % Basophils % (0.2-1.2) % Absolute Granulocytes (1.78-5.38) x10^3/uL Basophils # (0.01-0.08) x10^3/uL D-Dimer 1.98 H* (0.0-0.50) mg/L Sodium (135-145) mmol/L Potassium (3.5-5.1) mmol/L Chloride (98-107) mmol/L Carbon Dioxide (22-30) mmol/L Anion Gap (5-15) MEQ/L BUN (9-20) mg/dL Creatinine (0.66-1.25) mg/dL Estimated GFR ML/MIN Glucose (74-106) mg/dL Calcium (8.4-10.2) mg/dL Total Bilirubin (0.2-1.3) mg/dL AST (17-59) U/L ALT (0-50) U/L Alkaline Phosphatase (38-126) U/L Troponin I < 0.012 (0.000-0.033) ng/mL NT-Pro-B Natriuret Pep (<300) pg/mL Serum Total Protein (6.3-8.2) g/dL Albumin (3.5-5.0) g/dL Influenza Type A Ag NEGATIVE (NEGATIVE) Influenza Type B Ag NEGATIVE (NEGATIVE) RSV (PCR) NEGATIVE (NEGATIVE) SARS-CoV-2 (PCR) POSITIVE A (NEGATIVE) 07/17/24 07/17/24 Range/Units 09:35 09:35 WBC 13.8 H (4.23-9.07) x10^3/uL RBC 4.62 L (4.63-6.08) x10^6/uL Hgb 14.6 (13.7-17.5) g/dL Hct 44.6 (40.1-51.0) % MCV 96.5 H (79.0-92.2) fL MCH 31.6 (25.7-32.2) pg MCHC 32.7 (32.3-36.5) g/dL RDW 13.4 (11.6-14.4) % Plt Count 331 (163-337) x10^3/uL MPV 9.9 (9.4-12.4) fL Gran % 76.5 H (34.0-67.9) % Immature Gran % (Auto) 0.9 H (0.001-0.429) % Nucleat RBC Rel Count 0.0 (0.00-0.2) % Eos # (Auto) 0.09 (0.04-0.54) x10^3/uL Immature Gran # (Auto) 0.12 H (0.001-0.031) x10^3u/L Absolute Lymphs (auto) 1.73 (1.32-3.57) x10^3/uL Absolute Monos (auto) 1.22 H (0.30-0.82) x10^3/uL Absolute Nucleated RBC 0.00 (0.00-0.012) x10^3u/L Lymphocytes % 12.5 L (21.8-53.1) % Monocytes % 8.8 (5.3-12.2) % Eosinophils % 0.7 L (0.8-7.0) % Basophils % 0.6 (0.2-1.2) % Absolute Granulocytes 10.58 H (1.78-5.38) x10^3/uL Basophils # 0.08 (0.01-0.08) x10^3/uL D-Dimer (0.0-0.50) mg/L Sodium 143 (135-145) mmol/L Potassium 4.3 (3.5-5.1) mmol/L Chloride 103 (98-107) mmol/L Carbon Dioxide 31 H (22-30) mmol/L Anion Gap 14.0 (5-15) MEQ/L BUN 26 H (9-20) mg/dL Creatinine 0.66 (0.66-1.25) mg/dL Estimated GFR 96.6 ML/MIN Glucose 67 L (74-106) mg/dL Calcium 9.2 (8.4-10.2) mg/dL Total Bilirubin 0.50 (0.2-1.3) mg/dL AST 25 (17-59) U/L ALT 17 (0-50) U/L Alkaline Phosphatase 70 (38-126) U/L Troponin I (0.000-0.033) ng/mL NT-Pro-B Natriuret Pep 164 (<300) pg/mL Serum Total Protein 6.7 (6.3-8.2) g/dL Albumin 3.9 (3.5-5.0) g/dL Influenza Type A Ag (NEGATIVE) Influenza Type B Ag (NEGATIVE) RSV (PCR) (NEGATIVE) SARS-CoV-2 (PCR) (NEGATIVE) - Progress Progress: improved Air Movement: good Progress Note: Patient accepted by Dr. Khan at 1200pm 07/17/24 12:02 78-year-old male presents to our ED for evaluation of shortness of breath. Patient has a history of COPD. Physical exam reveals diminished breath sounds wheezing and hypoxia. D-dimer positive. CTA negative for PE. Patient is COVID-positive. Patient also has right upper right lower and left lower lobe infiltrates. Blood cultures obtained and antibiotics administered. Patient received Solu-Medrol and breathing treatment. Symptoms improved. Patient will require hospitalization for further evaluation and treatment. Plan of care d iscussed with patient. He agrees to admission to [facility] for further evaluation and treatment. Portions of this note were created with voice recognition technology. There may be grammatical, spelling, punctuation or sound alike errors Complexity of problem addressed is moderate acute complicated. No critical care time. Complex of data reviewed and analyzed is extensive. Test ordered chest reviewed results analyzed and correlated clinically with history and physical exam. Risk of complication and or risk of morbidity/mortality of patient management is high. Patient requires hospitalization for further evaluation and treatment. Vital stable. Time spent to admit patient is approximately 15 minutes. Plan of care established for shared decision making. No social determinants of health present to impede follow-up. Portions of this note were created with voice recognition technology. There may be grammatical, spelling, punctuation or sound alike errors 07/17/24 13:02 Blood Culture(s) Obtained: Yes Antibiotics given: Yes Counseled pt/family regarding: lab results, diagnosis, rad results - Departure Departure Disposition: Observation Clinical Impression: COPD exacerbation, COVID-19, Leukocytosis, Hypoxia, Pneumonia Condition: Stable Critical Care Time: No Referrals: CASANDRA HENSLEY MD [Primary Care Provider] - Follow up/PCP as directed Instructions: Chronic Obstructive Pulmonary Disease
[2024-07-17 10:06] LABS: Absolute Neutrophil Ct (ANC) 10.58 x10^3/uL (1.78-5.38); BASOPHIL % 0.6 % (0.2-1.2); Basophil (Absolute #) 0.08 x10^3/uL (0.01-0.08); Eosinophil % 0.7 % (0.8-7.0); Eosinophil (Absolute #) 0.09 x10^3/uL (0.04-0.54); Hematocrit 44.6 % (40.1-51.0); Hemoglobin 14.6 g/dL (13.7-17.5); IMMATURE GRAN # 0.12 x10^3u/L (0.001-0.031); IMMATURE GRAN % 0.9 % (0.001-0.429); Lymphocyte (Absolute #) 1.73 x10^3/uL (1.32-3.57); Lymphocytes % 12.5 % (21.8-53.1); Mean Cell Volume 96.5 fL (79.0-92.2); Mean Corpuscular Hemoglobin 31.6 pg (25.7-32.2); Mean Corpuscular Hgb Concent. 32.7 g/dL (32.3-36.5); Mean Platelet Volume 9.9 fL (9.4-12.4); Monocyte (Absolute #) 1.22 x10^3/uL (0.30-0.82); Monocytes % 8.8 % (5.3-12.2); Neutrophil % 76.5 % (34.0-67.9); Platelet Count 331 x10^3/uL (163-337); Red Blood Count 4.62 x10^6/uL (4.63-6.08); Red Cell Distribution Width 13.4 % (11.6-14.4); White Blood Count 13.8 x10^3/uL (4.23-9.07)
[2024-07-17] MEDS: solu-MEDROL 125 MG, Sterile H2O 10 ml 2 ML IV ONE (10:10)
[2024-07-17] MEDS: ZITHROMAX IV*** 500 MG in Sodium Chloride 0.9% 250 ML 250 ML IV STA (10:11)
[2024-07-17 10:30] LABS: ALBUMIN 3.9 g/dL (3.5-5.0); BILIRUBIN,TOTAL 0.5 mg/dL (0.2-1.3); Calcium 9.2 mg/dL (8.4-10.2); Creatinine 1 0.66 mg/dL (0.66-1.25); EST GLOMERULAR FILTRATION RATE 96.6 ML/MIN; Potassium 4.3 mmol/L (3.5-5.1); Total Protein 6.7 g/dL (6.3-8.2)
[2024-07-17 10:42] LABS: INFLUENZA A NEGATIVE (NEGATIVE); INFLUENZA B NEGATIVE (NEGATIVE); RESPIRATORY SYNCTIAL VIRUS NEGATIVE (NEGATIVE)
[2024-07-17 10:53] LABS: SARS-CoV-2 Xpert Express POSITIVE (NEGATIVE)
[2024-07-17] MEDS ORDERED: HOLD METFORMIN PRODUCTS FOR 48 HOURS MC SCH (11:20)
[2024-07-17] MEDS ORDERED: ROCEPHIN 2 GM/100 ML NACL 2 GM/100 ML IVPB IV ONE (11:39)
[2024-07-17] MEDS: ROCEPHIN 2 GM/100 ML NACL 2 GM/100 ML IVPB IV ONE (11:40)
--- NOTE | 2024-07-17 12:41 | XRAY ---
Indication: Short of breath. Positive d-dimer. Multiple contiguous axial images obtained through the chest using 80 cc Isovue 370 contrast and PE protocol. Comparison: October 27, 2023 Good opacification pulmonary arteries including lobar and segmental branches. No pulmonary embolus. Heart not enlarged again with scattered coronary calcifications. Aorta remains minimally arteriosclerotic without aneurysm/dissection. Stable tiny right hilar calcified nodes. No pathologic mediastinal/hilar lymphadenopathy. Lungs again demonstrates diffuse centrilobular pulmonary emphysema with scattered fibrosis/scarring and incidental inferior right upper lobe calcified granuloma. New 5.4 x 1.2 cm medial right upper lobe, 4.1 x 2.8 cm anterior lateral left lower lobe, and 1.8 x 3.1 cm anterior right lower lobe consolidating opacities possibly inflammatory/infectious etiology versus subsegmental atelectasis. Underlying malignancies not completely excluded. No effusion. Bony thorax intact again with osteopenia and mild degenerative changes throughout spine. Limited upper abdomen again demonstrates tiny hepatic cysts and 6.7 cm left renal cyst. Impression: 1. Continued negative pulmonary embolus. 2. New right upper, left lower, and right lower lobe consolidating opacities, possible inflammatory/infectious in etiology versus subsegmental atelectasis. Malignancies not completely excluded. Correlate clinically. 3. Again chronic findings including pulmonary emphysema, pulmonary fibrosis/scarring, arteriosclerotic disease, hepatic/left renal cysts, chronic bony findings, and old granulomatous disease.
--- NOTE | 2024-07-17 13:30 | PCM.HP ---
History of Present Illness - Chief Complaint Chief Complaint: Covid Date: 07/17/24 History of Present Illness: is a 78 year old male with a pmhx of COPD, AFIB, and anxiety who presented to ED on 07/17/24 with complaints of progressive shortness of breath an d cough over the past month. Patient states he has been treated OP initially by his pulmonolgist Dr. Kulkarni with steroids/antibiotics. He was not feeling any better and went to his PCP about three weeks ago and was diagnosed with pneumonia and prescribed a zpack which did not relieve symptoms. The patient intermittently uses oxygen via nasal cannula. He denies any fever, rash, nausea, vomiting, or diarrhea. The symptoms are described as mild to moderate in intensity and progressive, with no specific factors that worsen or improve the condition. He has been having trouble ambulating even short distances without being extremely short of breath. He reports his neighbor who he sees daily was recently diagnosed with COVID. Upon arrival, vitals are stable. A CT scan of the chest excludes pulmonary embolism, but shows new consolidating opacities in the right upper, left lower, and right lower lobes, which are concerning for an infectious or inflammatory process, possibly COVID-19 pneumonia, though subsegmental atelectasis remains a consideration. Chronic changes are also noted, including pulmonary emphysema, pulmonary fibrosis, arteriosclerotic disease, and old granulomatous disease. Lab results show leukocytosis, an elevated D-dimer, and a positive COVID-19 test, supporting an infectious etiology. The patient was given ceftriaxone, solumedrol, Duoneb, and a 250 mL fluid bolus in the ED, with the plan to admit for COVID pneumonia. - Review of Systems Constitutional: No Symptoms Eyes: No Symptoms Ears, Nose, & Throat: No Symptoms Respiratory: Cough, Short Of Breath, Wheezing Cardiac: No Symptoms Abdominal/Gastrointestinal: No Symptoms Genitourinary Symptoms: No Symptoms Musculoskeletal: No Symptoms Skin: No Symptoms Neurological: No Symptoms Psychological: No Symptoms Endocrine: No Symptoms Hematologic/Lymphatic: No Symptoms Immunological/Allergic: No Symptoms Medications & Allergies Home Medications: Home Medication List ALPRAZolam [Alprazolam] 0.5 mg PO TID 07/17/24 [History Confirmed 07/17/24] Albuterol Sulfate [Albuterol Sulfate Hfa] 2 puff IH DAILY PRN 07/17/24 [History Confirmed 07/17/24] Fluticasone/Umeclidin/Vilanter [Trelegy Ellipta 200-62.5-25] 1 each IH DAILY 07/17/24 [History Confirmed 07/17/24] Metformin HCl [Metformin HCl ER] 500 mg PO DAILY 07/17/24 [History Confirmed 07/17/24] Montelukast Sodium 10 mg [Singulair 10 MG] 10 mg PO DAILY 07/17/24 [History Confirmed 07/17/24] Prednisone 10 mg [Deltasone 10 mg] 10 mg PO DAILY 07/17/24 [History Confirmed 07/17/24] Sertraline HCl [Zoloft] 100 mg PO DAILY 07/17/24 [History Confirmed 07/17/24] Simvastatin 20Mg [Zocor 20Mg] 20 mg PO DAILY 07/17/24 [History Confirmed 07/17/24] dilTIAZem HCL [Diltiazem 24Hr ER (Cd)] 120 mg PO DAILY 07/17/24 [History Confirmed 07/17/24] Allergies/Adverse Reactions: Allergies Allergy/AdvReac Type Severity Reaction Status Date / Time No Known Drug Allergies Allergy Verified 06/16/24 20:53 - Past Medical History Past Medical History: Yes Neurological History: No Pertinent History ENT History: Cataracts Cardiac History: Arrhythmia Respiratory History: COPD, Other Endocrine Medical History: No Pertinent History Musculoskelatal History: No Pertinent History GI Medical History: No Pertinent History History: No Pertinent History Pyscho-Social History: Anxiety Male Reproductive Disorders: No Pertinent History Comment: Former smoker. follows [facility] - Past Surgical History Past Surgical History: Yes Neuro Surgical History: No Pertinent History Cardiac History: No Pertinent History Respiratory Surgery: No Pertinent History GI Surgical History: Other Genitourinary Surgical Hx: No Pertinent History Musculskeletal Surgical Hx: No Pertinent History Male Surgical History: No Pertinent History Other Surgical History: hx of colonoscopy 2018. Skin lesion removed from right elbow 10-15 years ago. Pt denied any other procedures or surgeries. Heart cath in 2012 Significant Family History: heart disease, cancer - Social History Smoking Status: Former smoker How long have you smoked: 50 Exposure to second hand smoke: Yes Alcohol: None Drug Use: none - Social Determinants of Health Will the patient participate in the screening: Declined to provide - Physical Exam Vital Signs: Vital Signs - 24 hr Temp Pulse Resp BP BP Pulse Ox 07/17/24 13:04 98 07/17/24 13:01 77 24 174/91 97 07/17/24 12:45 81 29 H 133/77 92 L 07/17/24 12:30 64 18 135/73 98 07/17/24 12:15 69 19 132/71 98 07/17/24 12:00 73 20 118/67 99 07/17/24 11:45 69 14 125/66 98 07/17/24 11:30 76 18 129/68 99 07/17/24 11:26 79 19 148/83 100 07/17/24 11:01 86 133/78 07/17/24 10:45 81 26 H 114/64 99 07/17/24 10:31 78 23 116/66 99 07/17/24 10:15 79 21 131/70 93 L 07/17/24 10:00 79 25 H 126/74 97 07/17/24 09:45 81 21 126/77 98 07/17/24 09:42 88 18 98 07/17/24 09:40 87 22 120/72 97 07/17/24 09:27 98.1 F 90 28 H 141/85 92 L General Appearance: no apparent distress Neurologic Exam: alert, oriented x 3, cooperative Eye Exam: PERRL/EOMI Ears, Nose, Throat Exam: normal ENT inspection Neck Exam: normal inspection Respiratory Exam: diminished breath sounds, crackles/rales, wheezing Cardiovascular Exam: regular rate/rhythm, normal heart sounds Gastrointestinal/Abdomen Exam: soft, normal bowel sounds Rectal Exam: deferred Back Exam: normal inspection Extremity Exam: normal inspection Skin Exam: normal color Results - Labs Lab/Micro Results: Lab Results-Last 24 Hours 07/17/24 07/17/24 07/17/24 Range/Units 09:35 09:35 09:35 WBC 13.8 H (4.23-9.07) x10^3/uL RBC 4.62 L (4.63-6.08) x10^6/uL Hgb 14.6 (13.7-17.5) g/dL Hct 44.6 (40.1-51.0) % MCV 96.5 H (79.0-92.2) fL MCH 31.6 (25.7-32.2) pg MCHC 32.7 (32.3-36.5) g/dL RDW 13.4 (11.6-14.4) % Plt Count 331 (163-337) x10^3/uL MPV 9.9 (9.4-12.4) fL Gran % 76.5 H (34.0-67.9) % Immature Gran % (Auto) 0.9 H (0.001-0.429) % Nucleat RBC Rel Count 0.0 (0.00-0.2) % Eos # (Auto) 0.09 (0.04-0.54) x10^3/uL Immature Gran # (Auto) 0.12 H (0.001-0.031) x10^3u/L Absolute Lymphs (auto) 1.73 (1.32-3.57) x10^3/uL Absolute Monos (auto) 1.22 H (0.30-0.82) x10^3/uL Absolute Nucleated RBC 0.00 (0.00-0.012) x10^3u/L Lymphocytes % 12.5 L (21.8-53.1) % Monocytes % 8.8 (5.3-12.2) % Eosinophils % 0.7 L (0.8-7.0) % Basophils % 0.6 (0.2-1.2) % Absolute Granulocytes 10.58 H (1.78-5.38) x10^3/uL Basophils # 0.08 (0.01-0.08) x10^3/uL D-Dimer 1.98 H* (0.0-0.50) mg/L Sodium 143 (135-145) mmol/L Potassium 4.3 (3.5-5.1) mmol/L Chloride 103 (98-107) mmol/L Carbon Dioxide 31 H (22-30) mmol/L Anion Gap 14.0 (5-15) MEQ/L BUN 26 H (9-20) mg/dL Creatinine 0.66 (0.66-1.25) mg/dL Estimated GFR 96.6 ML/MIN Glucose 67 L (74-106) mg/dL Calcium 9.2 (8.4-10.2) mg/dL Total Bilirubin 0.50 (0.2-1.3) mg/dL AST 25 (17-59) U/L ALT 17 (0-50) U/L Alkaline Phosphatase 70 (38-126) U/L Troponin I (0.000-0.033) ng/mL NT-Pro-B Natriuret Pep 164 (<300) pg/mL Serum Total Protein 6.7 (6.3-8.2) g/dL Albumin 3.9 (3.5-5.0) g/dL Influenza Type A Ag (NEGATIVE) Influenza Type B Ag (NEGATIVE) RSV (PCR) (NEGATIVE) SARS-CoV-2 (PCR) (NEGATIVE) 07/17/24 07/17/24 Range/Units 09:35 10:02 WBC (4.23-9.07) x10^3/uL RBC (4.63-6.08) x10^6/uL Hgb (13.7-17.5) g/dL Hct (40.1-51.0) % MCV (79.0-92.2) fL MCH (25.7-32.2) pg MCHC (32.3-36.5) g/dL RDW (11.6-14.4) % Plt Count (163-337) x10^3/uL MPV (9.4-12.4) fL Gran % (34.0-67.9) % Immature Gran % (Auto) (0.001-0.429) % Nucleat RBC Rel Count (0.00-0.2) % Eos # (Auto) (0.04-0.54) x10^3/uL Immature Gran # (Auto) (0.001-0.031) x10^3u/L Absolute Lymphs (auto) (1.32-3.57) x10^3/uL Absolute Monos (auto) (0.30-0.82) x10^3/uL Absolute Nucleated RBC (0.00-0.012) x10^3u/L Lymphocytes % (21.8-53.1) % Monocytes % (5.3-12.2) % Eosinophils % (0.8-7.0) % Basophils % (0.2-1.2) % Absolute Granulocytes (1.78-5.38) x10^3/uL Basophils # (0.01-0.08) x10^3/uL D-Dimer (0.0-0.50) mg/L Sodium (135-145) mmol/L Potassium (3.5-5.1) mmol/L Chloride (98-107) mmol/L Carbon Dioxide (22-30) mmol/L Anion Gap (5-15) MEQ/L BUN (9-20) mg/dL Creatinine (0.66-1.25) mg/dL Estimated GFR ML/MIN Glucose (74-106) mg/dL Calcium (8.4-10.2) mg/dL Total Bilirubin (0.2-1.3) mg/dL AST (17-59) U/L ALT (0-50) U/L Alkaline Phosphatase (38-126) U/L Troponin I < 0.012 (0.000-0.033) ng/mL NT-Pro-B Natriuret Pep (<300) pg/mL Serum Total Protein (6.3-8.2) g/dL Albumin (3.5-5.0) g/dL Influenza Type A Ag NEGATIVE (NEGATIVE) Influenza Type B Ag NEGATIVE (NEGATIVE) RSV (PCR) NEGATIVE (NEGATIVE) SARS-CoV-2 (PCR) POSITIVE A (NEGATIVE) Microbiology 07/17/24 09:39 Blood Culture Gram Stain - Final Blood Not Reportable - Radiology Impressions Radiology Exams & Impressions: Radiology Procedures Category Date Time Status CHEST WITH CONTRAST [CT] Stat Exams 07/17/24 10:47 Completed - Other Procedures and Tests Respiratory Therapy 07/17/24 09:34 Respiratory Therapy Assessment DAILY Assessment/Plan (1) Acute respiratory failure with hypoxia Current Visit: Yes Status: Acute Assessment & Plan: -Chest CT reviewed excludes pulmonary embolism, but shows new consolidating opacities in the right upper, left lower, and right lower lobes, which are concerning for an infectious or inflammatory process, possibly COVID-19 pneumonia, though subsegmental atelectasis remains a consideration. -Supplemental oxygen with goal spo2 > 90% -RT eval and follow -Nebs/INH -Dexamethasone 6mg daily x 10 days per Covid guidelines -Remdesivir to treat Covid -Ceftriaxone/Azithromycin for pneumonia -WBC reviewed at 13.8 - trend/Blood cultures pending -Sputum culture Code(s): J96.01 - ACUTE RESPIRATORY FAILURE WITH HYPOXIA (2) COPD exacerbation Current Visit: Yes Status: Acute Assessment & Plan: -see ARF Code(s): J44.1 - CHRONIC OBSTRUCTIVE PULMONARY DISEASE W (ACUTE) EXACERBATION (3) COVID-19 Current Visit: Yes Status: Acute Assessment & Plan: -See ARF Code(s): U07.1 - COVID-19 (4) Leukocytosis Current Visit: Yes Status: Acute Assessment & Plan: -Most likely secondary to pneumonia -COVID 19+ -WBC reviewed at 13.8 -Blood cultures pending -sputum culture pending -Add UA -Procalcitonin/lactic acid Code(s): D72.829 - ELEVATED WHITE BLOOD CELL COUNT, UNSPECIFIED (5) Pneumonia Current Visit: Yes Status: Acute Assessment & Plan: -see plan in ARF Code(s): J18.9 - PNEUMONIA, UNSPECIFIED ORGANISM (6) Pre-diabetes Current Visit: Yes Status: Acute Assessment & Plan: -Patient takes metformin at home - currently on hold due to CT contrast exam -ADA Diet -accuchecks -SSI Code(s): R73.03 - PREDIABETES (7) Afib Current Visit: Yes Status: Acute Assessment & Plan: -Continue diltiazem -Does not take anticoag- does not follow with cardiology Code(s): I48.91 - UNSPECIFIED ATRIAL FIBRILLATION (8) Anxiety Current Visit: No Status: Acute Assessment & Plan: -continue home meds sertraline and alprazolam VTE: lovenox PPI: protonix Dispo: 2-3 days Code status: Full code Code(s): F41.9 - ANXIETY DISORDER, UNSPECIFIED
[2024-07-17] MEDS ORDERED: HUMALOG SQ PRN (14:03)
[2024-07-17] MEDS ORDERED: TYLENOL 325 MG PO PRN (14:03)
[2024-07-17] MEDS ORDERED: HYDROCODONE-CHLORPHEN ER SUSP PO PRN (14:06)
[2024-07-17] MEDS ORDERED: Zofran 4 MG/2 ML VIAL IV PRN (14:06)
[2024-07-17] MEDS ORDERED: Hydromorphone 1 mg/ml Injection IV PRN (14:06)
[2024-07-17] MEDS ORDERED: VENTOLIN COMMON CANISTER IH PRN (15:01)
[2024-07-17] MEDS: DECADRON 10MG INJ. IV SCH (15:07)
[2024-07-17] MEDS: REMDESIVIR 200 MG in Sodium Chloride 0.9% 250 ML 250 ML IV ONE (15:07)
[2024-07-17] MEDS: PROTONIX 40 MG IV IV SCH (15:10)
[2024-07-17] MEDS: ZOCOR 20MG PO SCH ×2 (16:39→21:35)
[2024-07-17] MEDS: ZOLOFT 50 MG TABLET PO SCH (16:39)
[2024-07-17] MEDS: Cardizem CD PO SCH (16:39)
[2024-07-17] MEDS: Singulair 10 MG PO SCH ×2 (16:40→21:35)
[2024-07-17] MEDS: xanAX 0.5 MG PO SCH (16:40)
[2024-07-17] MEDS: ENOXAPARIN SODIUM SQ SCH (18:34)
--- NOTE | 2024-07-18 05:08 | PCM.NOTE ---
Date and Time: 07/18/24 0507 Subjective Assessment: is a 78 year old male with a pmhx of COPD, AFIB, and anxiety who presented to ED on 07/17/24 with complaints of progressive shortness of breath and cough over the past month. Patient states he has been treated OP initially by his pulmonolgist Dr. Kulkarni with steroids/antibiotics. He was not feeling any better and went to his PCP about three weeks ago and was diagnosed with pneumonia and prescribed a zpack which did not relieve symptoms. The patient intermittently uses oxygen via nasal cannula. He denies any fever, rash, nausea, vomiting, or diarrhea. The symptoms are described as mild to moderate in intensity and progressive, with no specific factors that worsen or improve the condition. He has been having trouble ambulating even short distances without being extremely short of breath. He reports his neighbor who he sees daily was recently diagnosed with COVID. Upon arrival, vitals are stable. A CT scan of the chest excludes pulmonary embolism, but shows new consolidating opacities in the right upper, left lower, and right lower lobes, which are concerning for an infectious or inflammatory process, possibly COVID-19 pneumonia, though subsegmental atelectasis remains a consideration. Chronic changes are also noted, including pulmonary emphysema, pulmonary fibrosis, arteriosclerotic disease, and old granulomatous disease. Lab results show leukocytosis, an elevated D-dimer, and a positive COVID-19 test, supporting an infectious etiology. The patient was given ceftriaxone, solumedrol, Duoneb, and a 250 mL fluid bolus in the ED, with the plan to admit for COVID pneumonia. 07/18/24: Met with patient bedside. Patient endorses noticeable improvement in both dyspnea and cough, although weakness persists. The cough remains productive, with clear sputum. On examination, the patient's lung sounds are diminished, with expiratory wheezes noted. Vital signs and laboratory results remain stable, suggesting no acute deterioration. The patient currently requires 2L of continuous oxygen, which is an increase from their baseline requirement of 2L as needed, indicating a sustained need for supplemental oxygen at this time. - Review of Systems Constitutional: Weakness Eyes: No Symptoms Ears, Nose, & Throat: No Symptoms Respiratory: Cough, Short Of Breath, Wheezing Cardiac: No Symptoms Abdominal/Gastrointestinal: No Symptoms Genitourinary Symptoms: No Symptoms Musculoskeletal: No Symptoms Skin: No Symptoms Neurological: No Symptoms Psychological: No Symptoms Endocrine: No Symptoms Hematologic/Lymphatic: No Symptoms Immunological/Allergic: No Symptoms Objective Exam General Appearance: no apparent distress Neurologic Exam: alert, oriented x 3, cooperative Skin Exam: normal color Eye Exam: PERRL Ears, Nose, Throat Exam: normal ENT inspection Neck Exam: normal inspection Respiratory Exam: diminished breath sounds, wheezing Cardiovascular Exam: regular rate/rhythm, normal heart sounds Gastrointestinal/Abdomen Exam: soft, normal bowel sounds Extremity Exam: normal inspection Back Exam: normal inspection Male Genitalia Exam: deferred Rectal Exam: deferred Objective Data Vital Signs: Vital Signs - 24 hr Temp Pulse Resp BP BP Pulse Ox 07/18/24 04:00 97.7 F 70 16 134/61 98 07/18/24 01:40 20 07/18/24 00:00 20 07/17/24 23:35 98.0 F 77 20 127/62 98 07/17/24 22:00 18 07/17/24 20:27 97.9 F 70 18 130/60 96 07/17/24 20:00 18 07/17/24 19:29 86 18 96 07/17/24 18:40 18 07/17/24 17:22 97.9 F 80 18 129/75 97 07/17/24 16:30 18 07/17/24 16:23 80 18 97 07/17/24 14:57 97 07/17/24 14:20 80 07/17/24 14:06 97.9 F 80 24 129/75 93 L 07/17/24 13:42 97.9 F 80 24 129/75 93 L 07/17/24 13:16 85 26 H 151/80 97 07/17/24 13:04 98 07/17/24 13:01 77 24 174/91 97 07/17/24 12:45 81 29 H 133/77 92 L 07/17/24 12:30 64 18 135/73 98 07/17/24 12:15 69 19 132/71 98 07/17/24 12:00 73 20 118/67 99 07/17/24 11:45 69 14 125/66 98 07/17/24 11:30 76 18 129/68 99 07/17/24 11:26 79 19 148/83 100 07/17/24 11:01 86 133/78 07/17/24 10:45 81 26 H 114/64 99 07/17/24 10:31 78 23 116/66 99 07/17/24 10:15 79 21 131/70 93 L 07/17/24 10:00 79 25 H 126/74 97 07/17/24 09:45 81 21 126/77 98 07/17/24 09:42 88 18 98 07/17/24 09:40 87 22 120/72 97 07/17/24 09:27 98.1 F 90 28 H 141/85 92 L Pain Assessment - Last Documented Pain Intensity 0 Intake and Output: Intake & Output 07/15/24 07/16/24 07/17/24 07/18/24 11:59 11:59 11:59 11:59 Intake Total 580 Output Total 900 Balance -320 Weight 50.2 kg 71 kg Lab Results: Lab Results-Last 24 Hours 07/17/24 07/17/24 07/17/24 Range/Units 09:35 09:35 09:35 WBC 13.8 H (4.23-9.07) x10^3/uL RBC 4.62 L (4.63-6.08) x10^6/uL Hgb 14.6 (13.7-17.5) g/dL Hct 44.6 (40.1-51.0) % MCV 96.5 H (79.0-92.2) fL MCH 31.6 (25.7-32.2) pg MCHC 32.7 (32.3-36.5) g/dL RDW 13.4 (11.6-14.4) % Plt Count 331 (163-337) x10^3/uL MPV 9.9 (9.4-12.4) fL Gran % 76.5 H (34.0-67.9) % Immature Gran % (Auto) 0.9 H (0.001-0.429) % Nucleat RBC Rel Count 0.0 (0.00-0.2) % Eos # (Auto) 0.09 (0.04-0.54) x10^3/uL Immature Gran # (Auto) 0.12 H (0.001-0.031) x10^3u/L Absolute Lymphs (auto) 1.73 (1.32-3.57) x10^3/uL Absolute Monos (auto) 1.22 H (0.30-0.82) x10^3/uL Absolute Nucleated RBC 0.00 (0.00-0.012) x10^3u/L Lymphocytes % 12.5 L (21.8-53.1) % Monocytes % 8.8 (5.3-12.2) % Eosinophils % 0.7 L (0.8-7.0) % Basophils % 0.6 (0.2-1.2) % Absolute Granulocytes 10.58 H (1.78-5.38) x10^3/uL Basophils # 0.08 (0.01-0.08) x10^3/uL D-Dimer 1.98 H* (0.0-0.50) mg/L Sodium 143 (135-145) mmol/L Potassium 4.3 (3.5-5.1) mmol/L Chloride 103 (98-107) mmol/L Carbon Dioxide 31 H (22-30) mmol/L Anion Gap 14.0 (5-15) MEQ/L BUN 26 H (9-20) mg/dL Creatinine 0.66 (0.66-1.25) mg/dL Estimated GFR 96.6 ML/MIN Glucose 67 L (74-106) mg/dL POC Glucometer (74 to 106) mg/dL Hemoglobin A1c (4.5-6.0) % Lactic Acid (0.4-2.0) Calcium 9.2 (8.4-10.2) mg/dL Magnesium (1.6-2.3) mg/dL Total Bilirubin 0.50 (0.2-1.3) mg/dL AST 25 (17-59) U/L ALT 17 (0-50) U/L Alkaline Phosphatase 70 (38-126) U/L Troponin I (0.000-0.033) ng/mL NT-Pro-B Natriuret Pep 164 (<300) pg/mL Serum Total Protein 6.7 (6.3-8.2) g/dL Albumin 3.9 (3.5-5.0) g/dL Procalcitonin (0.030-0.080) ng/mL Influenza Type A Ag (NEGATIVE) Influenza Type B Ag (NEGATIVE) RSV (PCR) (NEGATIVE) SARS-CoV-2 (PCR) (NEGATIVE) 07/17/24 07/17/24 07/17/24 Range/Units 09:35 10:02 13:10 WBC (4.23-9.07) x10^3/uL RBC (4.63-6.08) x10^6/uL Hgb (13.7-17.5) g/dL Hct (40.1-51.0) % MCV (79.0-92.2) fL MCH (25.7-32.2) pg MCHC (32.3-36.5) g/dL RDW (11.6-14.4) % Plt Count (163-337) x10^3/uL MPV (9.4-12.4) fL Gran % (34.0-67.9) % Immature Gran % (Auto) (0.001-0.429) % Nucleat RBC Rel Count (0.00-0.2) % Eos # (Auto) (0.04-0.54) x10^3/uL Immature Gran # (Auto) (0.001-0.031) x10^3u/L Absolute Lymphs (auto) (1.32-3.57) x10^3/uL Absolute Monos (auto) (0.30-0.82) x10^3/uL Absolute Nucleated RBC (0.00-0.012) x10^3u/L Lymphocytes % (21.8-53.1) % Monocytes % (5.3-12.2) % Eosinophils % (0.8-7.0) % Basophils % (0.2-1.2) % Absolute Granulocytes (1.78-5.38) x10^3/uL Basophils # (0.01-0.08) x10^3/uL D-Dimer (0.0-0.50) mg/L Sodium (135-145) mmol/L Potassium (3.5-5.1) mmol/L Chloride (98-107) mmol/L Carbon Dioxide (22-30) mmol/L Anion Gap (5-15) MEQ/L BUN (9-20) mg/dL Creatinine (0.66-1.25) mg/dL Estimated GFR ML/MIN Glucose (74-106) mg/dL POC Glucometer (74 to 106) mg/dL Hemoglobin A1c (4.5-6.0) % Lactic Acid (0.4-2.0) Calcium (8.4-10.2) mg/dL Magnesium (1.6-2.3) mg/dL Total Bilirubin (0.2-1.3) mg/dL AST (17-59) U/L ALT (0-50) U/L Alkaline Phosphatase (38-126) U/L Troponin I < 0.012 (0.000-0.033) ng/mL NT-Pro-B Natriuret Pep (<300) pg/mL Serum Total Protein (6.3-8.2) g/dL Albumin (3.5-5.0) g/dL Procalcitonin 0.059 (0.030-0.080) ng/mL Influenza Type A Ag NEGATIVE (NEGATIVE) Influenza Type B Ag NEGATIVE (NEGATIVE) RSV (PCR) NEGATIVE (NEGATIVE) SARS-CoV-2 (PCR) POSITIVE A (NEGATIVE) 07/17/24 07/17/24 07/17/24 Range/Units 13:10 13:18 13:18 WBC (4.23-9.07) x10^3/uL RBC (4.63-6.08) x10^6/uL Hgb (13.7-17.5) g/dL Hct (40.1-51.0) % MCV (79.0-92.2) fL MCH (25.7-32.2) pg MCHC (32.3-36.5) g/dL RDW (11.6-14.4) % Plt Count (163-337) x10^3/uL MPV (9.4-12.4) fL Gran % (34.0-67.9) % Immature Gran % (Auto) (0.001-0.429) % Nucleat RBC Rel Count (0.00-0.2) % Eos # (Auto) (0.04-0.54) x10^3/uL Immature Gran # (Auto) (0.001-0.031) x10^3u/L Absolute Lymphs (auto) (1.32-3.57) x10^3/uL Absolute Monos (auto) (0.30-0.82) x10^3/uL Absolute Nucleated RBC (0.00-0.012) x10^3u/L Lymphocytes % (21.8-53.1) % Monocytes % (5.3-12.2) % Eosinophils % (0.8-7.0) % Basophils % (0.2-1.2) % Absolute Granulocytes (1.78-5.38) x10^3/uL Basophils # (0.01-0.08) x10^3/uL D-Dimer (0.0-0.50) mg/L Sodium (135-145) mmol/L Potassium (3.5-5.1) mmol/L Chloride (98-107) mmol/L Carbon Dioxide (22-30) mmol/L Anion Gap (5-15) MEQ/L BUN (9-20) mg/dL Creatinine (0.66-1.25) mg/dL Estimated GFR ML/MIN Glucose (74-106) mg/dL POC Glucometer (74 to 106) mg/dL Hemoglobin A1c 6.04 H (4.5-6.0) % Lactic Acid (0.4-2.0) Calcium (8.4-10.2) mg/dL Magnesium 1.8 (1.6-2.3) mg/dL Total Bilirubin (0.2-1.3) mg/dL AST (17-59) U/L ALT (0-50) U/L Alkaline Phosphatase (38-126) U/L Troponin I < 0.012 (0.000-0.033) ng/mL NT-Pro-B Natriuret Pep (<300) pg/mL Serum Total Protein (6.3-8.2) g/dL Albumin (3.5-5.0) g/dL Procalcitonin (0.030-0.080) ng/mL Influenza Type A Ag (NEGATIVE) Influenza Type B Ag (NEGATIVE) RSV (PCR) (NEGATIVE) SARS-CoV-2 (PCR) (NEGATIVE) 07/17/24 07/17/24 07/17/24 Range/Units 14:03 16:30 17:00 WBC (4.23-9.07) x10^3/uL RBC (4.63-6.08) x10^6/uL Hgb (13.7-17.5) g/dL Hct (40.1-51.0) % MCV (79.0-92.2) fL MCH (25.7-32.2) pg MCHC (32.3-36.5) g/dL RDW (11.6-14.4) % Plt Count (163-337) x10^3/uL MPV (9.4-12.4) fL Gran % (34.0-67.9) % Immature Gran % (Auto) (0.001-0.429) % Nucleat RBC Rel Count (0.00-0.2) % Eos # (Auto) (0.04-0.54) x10^3/uL Immature Gran # (Auto) (0.001-0.031) x10^3u/L Absolute Lymphs (auto) (1.32-3.57) x10^3/uL Absolute Monos (auto) (0.30-0.82) x10^3/uL Absolute Nucleated RBC (0.00-0.012) x10^3u/L Lymphocytes % (21.8-53.1) % Monocytes % (5.3-12.2) % Eosinophils % (0.8-7.0) % Basophils % (0.2-1.2) % Absolute Granulocytes (1.78-5.38) x10^3/uL Basophils # (0.01-0.08) x10^3/uL D-Dimer (0.0-0.50) mg/L Sodium (135-145) mmol/L Potassium (3.5-5.1) mmol/L Chloride (98-107) mmol/L Carbon Dioxide (22-30) mmol/L Anion Gap (5-15) MEQ/L BUN (9-20) mg/dL Creatinine (0.66-1.25) mg/dL Estimated GFR ML/MIN Glucose (74-106) mg/dL POC Glucometer 185 H (74 to 106) mg/dL Hemoglobin A1c (4.5-6.0) % Lactic Acid 1.1 (0.4-2.0) Calcium (8.4-10.2) mg/dL Magnesium (1.6-2.3) mg/dL Total Bilirubin (0.2-1.3) mg/dL AST (17-59) U/L ALT (0-50) U/L Alkaline Phosphatase (38-126) U/L Troponin I < 0.012 (0.000-0.033) ng/mL NT-Pro-B Natriuret Pep (<300) pg/mL Serum Total Protein (6.3-8.2) g/dL Albumin (3.5-5.0) g/dL Procalcitonin (0.030-0.080) ng/mL Influenza Type A Ag (NEGATIVE) Influenza Type B Ag (NEGATIVE) RSV (PCR) (NEGATIVE) SARS-CoV-2 (PCR) (NEGATIVE) 07/17/24 Range/Units 21:58 WBC (4.23-9.07) x10^3/uL RBC (4.63-6.08) x10^6/uL Hgb (13.7-17.5) g/dL Hct (40.1-51.0) % MCV (79.0-92.2) fL MCH (25.7-32.2) pg MCHC (32.3-36.5) g/dL RDW (11.6-14.4) % Plt Count (163-337) x10^3/uL MPV (9.4-12.4) fL Gran % (34.0-67.9) % Immature Gran % (Auto) (0.001-0.429) % Nucleat RBC Rel Count (0.00-0.2) % Eos # (Auto) (0.04-0.54) x10^3/uL Immature Gran # (Auto) (0.001-0.031) x10^3u/L Absolute Lymphs (auto) (1.32-3.57) x10^3/uL Absolute Monos (auto) (0.30-0.82) x10^3/uL Absolute Nucleated RBC (0.00-0.012) x10^3u/L Lymphocytes % (21.8-53.1) % Monocytes % (5.3-12.2) % Eosinophils % (0.8-7.0) % Basophils % (0.2-1.2) % Absolute Granulocytes (1.78-5.38) x10^3/uL Basophils # (0.01-0.08) x10^3/uL D-Dimer (0.0-0.50) mg/L Sodium (135-145) mmol/L Potassium (3.5-5.1) mmol/L Chloride (98-107) mmol/L Carbon Dioxide (22-30) mmol/L Anion Gap (5-15) MEQ/L BUN (9-20) mg/dL Creatinine (0.66-1.25) mg/dL Estimated GFR ML/MIN Glucose (74-106) mg/dL POC Glucometer 188 H (74 to 106) mg/dL Hemoglobin A1c (4.5-6.0) % Lactic Acid (0.4-2.0) Calcium (8.4-10.2) mg/dL Magnesium (1.6-2.3) mg/dL Total Bilirubin (0.2-1.3) mg/dL AST (17-59) U/L ALT (0-50) U/L Alkaline Phosphatase (38-126) U/L Troponin I (0.000-0.033) ng/mL NT-Pro-B Natriuret Pep (<300) pg/mL Serum Total Protein (6.3-8.2) g/dL Albumin (3.5-5.0) g/dL Procalcitonin (0.030-0.080) ng/mL Influenza Type A Ag (NEGATIVE) Influenza Type B Ag (NEGATIVE) RSV (PCR) (NEGATIVE) SARS-CoV-2 (PCR) (NEGATIVE) Radiology Exams: Radiology Procedures Category Date Time Status CHEST WITH CONTRAST [CT] Stat Exams 07/17/24 10:47 Completed Assessment/Plan (1) Acute respiratory failure with hypoxia Current Visit: Yes Status: Acute Assessment & Plan: -Chest CT reviewed excludes pulmonary embolism, but shows new consolidating opacities in the right upper, left lower, and right lower lobes, which are concerning for an infectious or inflammatory process, possibly COVID-19 pneumonia, though subsegmental atelectasis remains a consideration. -Supplemental oxygen with goal spo2 > 90% -RT eval and follow -Nebs/INH -Dexamethasone 6mg daily x 10 days per Covid guidelines -Remdesivir to treat Covid -Ceftriaxone/Azithromycin for pneumonia -WBC reviewed at 13.8 - trend/Blood cultures pending -Sputum culture 07/18/24: -Procal negative -sputum cult with gram pos cocci and gram negative rods -continue remdesivir/ceftriaxone/ azithromycin/dexamethasone -WBC reviewed and WNL Code(s): J96.01 - ACUTE RESPIRATORY FAILURE WITH HYPOXIA (2) COPD exacerbation Current Visit: Yes Status: Acute Assessment & Plan: -see ARF Code(s): J44.1 - CHRONIC OBSTRUCTIVE PULMONARY DISEASE W (ACUTE) EXACERBATION (3) COVID-19 Current Visit: Yes Status: Acute Assessment & Plan: -See ARF Code(s): U07.1 - COVID-19 (4) Leukocytosis Current Visit: Yes Status: Acute Assessment & Plan: -Most likely secondary to pneumonia -COVID 19+ -WBC reviewed at 13.8 -Blood cultures pending -sputum culture pending -Add UA -Procalcitonin/lactic acid 07/18: -WBC reviewed at 5.8 <13.8 and WNL Code(s): D72.829 - ELEVATED WHITE BLOOD CELL COUNT, UNSPECIFIED (5) Pneumonia Current Visit: Yes Status: Acute Assessment & Plan: -see plan in ARF Code(s): J18.9 - PNEUMONIA, UNSPECIFIED ORGANISM (6) Pre-diabetes Current Visit: Yes Status: Acute Assessment & Plan: -Patient takes metformin at home - currently on hold due to CT contrast exam -ADA Diet -accuchecks -SSI -A1c 6.04- controlled Code(s): R73.03 - PREDIABETES (7) Afib Current Visit: Yes Status: Acute Assessment & Plan: -Continue diltiazem -Does not take anticoag- does not follow with cardiology Code(s): I48.91 - UNSPECIFIED ATRIAL FIBRILLATION (8) Anxiety Current Visit: No Status: Acute Assessment & Plan: -continue home meds sertraline and alprazolam VTE: lovenox PPI: protonix Dispo: 2-3 days Code status: Full code Code(s): F41.9 - ANXIETY DISORDER, UNSPECIFIED Code(s): J96.01 - ACUTE RESPIRATORY FAILURE WITH HYPOXIA (2) COPD exacerbation Current Visit: Yes Status: Acute Code(s): J44.1 - CHRONIC OBSTRUCTIVE PULMONARY DISEASE W (ACUTE) EXACERBATION (3) COVID-19 Current Visit: Yes Status: Acute Code(s): U07.1 - COVID-19 (4) Leukocytosis Current Visit: Yes Status: Acute Code(s): D72.829 - ELEVATED WHITE BLOOD CELL COUNT, UNSPECIFIED (5) Pneumonia Current Visit: Yes Status: Acute Code(s): J18.9 - PNEUMONIA, UNSPECIFIED ORGANISM (6) Pre-diabetes Current Visit: Yes Status: Acute Code(s): R73.03 - PREDIABETES (7) Afib Current Visit: Yes Status: Acute Code(s): I48.91 - UNSPECIFIED ATRIAL FIBRILLATION (8) Anxiety Current Visit: No Status: Acute Code(s): F41.9 - ANXIETY DISORDER, UNSPECIFIED
[2024-07-18 05:12] LABS: Absolute Neutrophil Ct (ANC) 4.98 x10^3/uL (1.78-5.38); BASOPHIL % 0.2 % (0.2-1.2); Basophil (Absolute #) 0.01 x10^3/uL (0.01-0.08); Eosinophil (Absolute #) 0 x10^3/uL (0.04-0.54); Hematocrit 40.9 % (40.1-51.0); IMMATURE GRAN # 0.04 x10^3u/L (0.001-0.031); IMMATURE GRAN % 0.7 % (0.001-0.429); Lymphocyte (Absolute #) 0.57 x10^3/uL (1.32-3.57); Lymphocytes % 9.9 % (21.8-53.1); Mean Cell Volume 97.1 fL (79.0-92.2); Mean Corpuscular Hemoglobin 30.9 pg (25.7-32.2); Mean Corpuscular Hgb Concent. 31.8 g/dL (32.3-36.5); Mean Platelet Volume 9.9 fL (9.4-12.4); Monocyte (Absolute #) 0.17 x10^3/uL (0.30-0.82); Monocytes % 2.9 % (5.3-12.2); Neutrophil % 86.3 % (34.0-67.9); Platelet Count 306 x10^3/uL (163-337); Red Blood Count 4.21 x10^6/uL (4.63-6.08); Red Cell Distribution Width 13.4 % (11.6-14.4); White Blood Count 5.8 x10^3/uL (4.23-9.07)
[2024-07-18 05:32] LABS: ALBUMIN 3.6 g/dL (3.5-5.0); ANION GAP 13.6 MEQ/L (5-15); BILIRUBIN,TOTAL 0.3 mg/dL (0.2-1.3); Calcium 8.6 mg/dL (8.4-10.2); Creatinine 1 0.71 mg/dL (0.66-1.25); EST GLOMERULAR FILTRATION RATE 94.5 ML/MIN; Potassium 4.4 mmol/L (3.5-5.1); Total Protein 6.3 g/dL (6.3-8.2)
[2024-07-18 07:01] LABS: Slide Review 1 YES
[2024-07-18] MEDS: PATIENT OWN MEDICATION IH SCH (07:01)
[2024-07-18] MEDS: ZITHROMAX IV*** 500 MG in Sodium Chloride 0.9% 250 ML 250 ML IV SCH (08:32)
[2024-07-18] MEDS: ROCEPHIN 1 GM / 100 ML NaCl 1 GM/100 ML IVPB IV SCH (08:33)
[2024-07-18] MEDS ORDERED: NON-FORMULARY ITEM (Fluticasone/Umeclidin/Vilanter [Trelegy Ellipta 200-62.5-25] 1 EACH Bl IH SCH (10:00)
[2024-07-18] MEDS: REMDESIVIR 100 MG in Sodium Chloride 100ML MINI-BAG PLUS 100 ML IV SCH (15:18)
[2024-07-18] MEDS: Ambien 5 MG Tablet PO PRN (22:17)
[2024-07-18 22:35] LABS: Appearance Clear (Clear); Bacteria None Seen /HPF (None Seen); Bilirubin Negative (Negative); Blood Negative (Negative); Epithelial Cells None Seen /HPF (None Seen); Glucose, Urine Negative (Negative); Hyaline Casts NONE SEEN /LPF (0-2); Ketones Negative (Negative); Leukocyte Esterase Negative (Negative); Nitrite Negative (Negative); Ph 5.5 (4.6-8.0); Protein,Urine Dip Trace (Negative); RBC 0-2 /HPF (0-5); Specific Gravity >=1.030 (1.005-1.030); Urobilinogen 0.2 mg/dL (0.2); WBC 0-2 /HPF (0-5)
[2024-07-18] MEDS: VENTOLIN COMMON CANISTER IH PRN (22:35)
[2024-07-19 05:00] LABS: Absolute Neutrophil Ct (ANC) 14.26 x10^3/uL (1.78-5.38); BASOPHIL % 0.1 % (0.2-1.2); Basophil (Absolute #) 0.02 x10^3/uL (0.01-0.08); Eosinophil (Absolute #) 0 x10^3/uL (0.04-0.54); Hematocrit 37.3 % (40.1-51.0); Hemoglobin 12.1 g/dL (13.7-17.5); IMMATURE GRAN % 0.6 % (0.001-0.429); Lymphocyte (Absolute #) 0.88 x10^3/uL (1.32-3.57); Lymphocytes % 5.4 % (21.8-53.1); Mean Cell Volume 96.6 fL (79.0-92.2); Mean Corpuscular Hemoglobin 31.3 pg (25.7-32.2); Mean Corpuscular Hgb Concent. 32.4 g/dL (32.3-36.5); Mean Platelet Volume 10.1 fL (9.4-12.4); Monocyte (Absolute #) 0.97 x10^3/uL (0.30-0.82); Neutrophil % 87.9 % (34.0-67.9); Platelet Count 298 x10^3/uL (163-337); Red Blood Count 3.86 x10^6/uL (4.63-6.08); Red Cell Distribution Width 13.3 % (11.6-14.4); White Blood Count 16.2 x10^3/uL (4.23-9.07)
--- NOTE | 2024-07-19 05:21 | PCM.NOTE ---
Date and Time: 07/19/24 0520 Subjective Assessment: is a 78 year old male with a pmhx of COPD, AFIB, and anxiety who presented to ED on 07/17/24 with complaints of progressive shortness of breath and cough over the past month. Patient states he has been treated OP initially by his pulmonolgist Dr. Kulkarni with steroids/antibiotics. He was not feeling any better and went to his PCP about three weeks ago and was diagnosed with pneumonia and prescribed a zpack which did not relieve symptoms. The patient intermittently uses oxygen via nasal cannula. He denies any fever, rash, nausea, vomiting, or diarrhea. The symptoms are described as mild to moderate in intensity and progressive, with no specific factors that worsen or improve the condition. He has been having trouble ambulating even short distances without being extremely short of breath. He reports his neighbor who he sees daily was recently diagnosed with COVID. Upon arrival, vitals are stable. A CT scan of the chest excludes pulmonary embolism, but shows new consolidating opacities in the right upper, left lower, and right lower lobes, which are concerning for an infectious or inflammatory process, possibly COVID-19 pneumonia, though subsegmental atelectasis remains a consideration. Chronic changes are also noted, including pulmonary emphysema, pulmonary fibrosis, arteriosclerotic disease, and old granulomatous disease. Lab results show leukocytosis, an elevated D-dimer, and a positive COVID-19 test, supporting an infectious etiology. The patient was given ceftriaxone, solumedrol, Duoneb, and a 250 mL fluid bolus in the ED, with the plan to admit for COVID pneumonia. 07/18/24: Met with patient bedside. Patient endorses noticeable improvement in both dyspnea and cough, although weakness persists. The cough remains productive, with clear sputum. On examination, the patient's lung sounds are diminished, with expiratory wheezes noted. Vital signs and laboratory results remain stable, suggesting no acute deterioration. The patient currently requires 2L of continuous oxygen, which is an increase from their baseline requirement of 2L as needed, indicating a sustained need for supplemental oxygen at this time. 07/19/24: No overnight events noted. Dyspnea and cough continue but improved since admission. Continued weakness. Currently on 2L NC. Patient states he is not ready for discharge today. Denies fever, cp, abdominal pain, TUBBS, dizziness, N/V/D. - Review of Systems Constitutional: Weakness Eyes: No Symptoms Ears, Nose, & Throat: No Symptoms Respiratory: Cough, Short Of Breath, Wheezing Cardiac: No Symptoms Abdominal/Gastrointestinal: No Symptoms Genitourinary Symptoms: No Symptoms Musculoskeletal: No Symptoms Skin: No Symptoms Neurological: No Symptoms Psychological: No Symptoms Endocrine: No Symptoms Hematologic/Lymphatic: No Symptoms Immunological/Allergic: No Symptoms Objective Exam General Appearance: no apparent distress Neurologic Exam: alert, oriented x 3, cooperative Skin Exam: normal color Eye Exam: PERRL Ears, Nose, Throat Exam: normal ENT inspection Neck Exam: normal inspection Respiratory Exam: crackles/rales, wheezing Cardiovascular Exam: regular rate/rhythm, normal heart sounds Gastrointestinal/Abdomen Exam: soft, normal bowel sounds Extremity Exam: normal inspection Back Exam: normal inspection Male Genitalia Exam: deferred Rectal Exam: deferred Objective Data Vital Signs: Vital Signs - 24 hr Temp Pulse Resp BP Pulse Ox 07/19/24 04:00 98.5 F 84 18 131/84 95 07/19/24 01:54 21 07/19/24 00:00 98.2 F 85 21 134/77 95 07/18/24 22:35 75 20 97 07/18/24 22:00 20 07/18/24 20:00 78 F 79 20 155/84 92 L 07/18/24 18:30 79 18 97 07/18/24 17:55 17 07/18/24 16:00 98.0 F 81 17 169/74 96 07/18/24 14:00 19 07/18/24 12:00 19 07/18/24 11:48 98.1 F 75 16 144/70 97 07/18/24 10:00 19 07/18/24 08:00 19 07/18/24 07:47 98.0 F 88 16 154/81 97 07/18/24 07:03 68 14 94 L 07/18/24 06:00 16 Pain Assessment - Last Documented Pain Intensity 0 Intake and Output: Intake & Output 07/16/24 07/17/24 07/18/24 07/19/24 11:59 11:59 11:59 11:59 Intake Total 1060 1100 Output Total 900 100 Balance 160 1000 Weight 50.2 kg 72.8 kg Lab Results: Lab Results-Last 24 Hours 07/17/24 07/18/2425 Range/Units 22:26 05:06 05:06 WBC 5.8 (4.23-9.07) x10^3/uL RBC 4.21 L (4.63-6.08) x10^6/uL Hgb 13.0 L (13.7-17.5) g/dL Hct 40.9 (40.1-51.0) % MCV 97.1 H (79.0-92.2) fL MCH 30.9 (25.7-32.2) pg MCHC 31.8 L (32.3-36.5) g/dL RDW 13.4 (11.6-14.4) % Plt Count 306 (163-337) x10^3/uL MPV 9.9 (9.4-12.4) fL Gran % 86.3 H (34.0-67.9) % Immature Gran % (Auto) 0.7 H (0.001-0.429) % Nucleat RBC Rel Count 0.0 (0.00-0.2) % Eos # (Auto) 0 L (0.04-0.54) x10^3/uL Immature Gran # (Auto) 0.04 H (0.001-0.031) x10^3u/L Absolute Lymphs (auto) 0.57 L (1.32-3.57) x10^3/uL Absolute Monos (auto) 0.17 L (0.30-0.82) x10^3/uL Absolute Nucleated RBC 0.00 (0.00-0.012) x10^3u/L Lymphocytes % 9.9 L (21.8-53.1) % Monocytes % 2.9 L (5.3-12.2) % Eosinophils % 0.0 L (0.8-7.0) % Basophils % 0.2 (0.2-1.2) % Absolute Granulocytes 4.98 (1.78-5.38) x10^3/uL Basophils # 0.01 (0.01-0.08) x10^3/uL Sodium 140 (135-145) mmol/L Potassium 4.4 (3.5-5.1) mmol/L Chloride 101 (98-107) mmol/L Carbon Dioxide 30 (22-30) mmol/L Anion Gap 13.6 (5-15) MEQ/L BUN 26 H (9-20) mg/dL Creatinine 0.71 (0.66-1.25) mg/dL Estimated GFR 94.5 ML/MIN Glucose 169 H (74-106) mg/dL POC Glucometer (74 to 106) mg/dL Calcium 8.6 (8.4-10.2) mg/dL Total Bilirubin 0.30 (0.2-1.3) mg/dL AST 22 (17-59) U/L ALT 18 (0-50) U/L Alkaline Phosphatase 59 (38-126) U/L Serum Total Protein 6.3 (6.3-8.2) g/dL Albumin 3.6 (3.5-5.0) g/dL Urine Color Yellow (Yellow) Urine Appearance Clear (Clear) Urine pH 5.5 (4.6-8.0) Ur Specific Bartlett >=1.030 A (1.005-1.030) Urine Protein Trace A (Negative) Urine Glucose (UA) Negative (Negative) mg/dL Urine Ketones Negative (Negative) Urine Blood Negative (Negative) Urine Nitrite Negative (Negative) Urine Bilirubin Negative (Negative) Urine Urobilinogen 0.2 (0.2) mg/dL Ur Leukocyte Esterase Negative (Negative) U Hyaline Cast (Auto) NONE SEEN (0-2) /LPF Urine Microscopic RBC 0-2 (0-5) /HPF Urine Microscopic WBC 0-2 (0-5) /HPF Ur Epithelial Cells None Seen (None Seen) /HPF Urine Bacteria None Seen (None Seen) /HPF Urine Culture Reflexed NO (NO) Slides for Path Review YES 07/18/24 07/18/24 07/18/24 Range/Units 07:39 11:27 16:01 WBC (4.23-9.07) x10^3/uL RBC (4.63-6.08) x10^6/uL Hgb (13.7-17.5) g/dL Hct (40.1-51.0) % MCV (79.0-92.2) fL MCH (25.7-32.2) pg MCHC (32.3-36.5) g/dL RDW (11.6-14.4) % Plt Count (163-337) x10^3/uL MPV (9.4-12.4) fL Gran % (34.0-67.9) % Immature Gran % (Auto) (0.001-0.429) % Nucleat RBC Rel Count (0.00-0.2) % Eos # (Auto) (0.04-0.54) x10^3/uL Immature Gran # (Auto) (0.001-0.031) x10^3u/L Absolute Lymphs (auto) (1.32-3.57) x10^3/uL Absolute Monos (auto) (0.30-0.82) x10^3/uL Absolute Nucleated RBC (0.00-0.012) x10^3u/L Lymphocytes % (21.8-53.1) % Monocytes % (5.3-12.2) % Eosinophils % (0.8-7.0) % Basophils % (0.2-1.2) % Absolute Granulocytes (1.78-5.38) x10^3/uL Basophils # (0.01-0.08) x10^3/uL Sodium (135-145) mmol/L Potassium (3.5-5.1) mmol/L Chloride (98-107) mmol/L Carbon Dioxide (22-30) mmol/L Anion Gap (5-15) MEQ/L BUN (9-20) mg/dL Creatinine (0.66-1.25) mg/dL Estimated GFR ML/MIN Glucose (74-106) mg/dL POC Glucometer 147 H 135 H 176 H (74 to 106) mg/dL Calcium (8.4-10.2) mg/dL Total Bilirubin (0.2-1.3) mg/dL AST (17-59) U/L ALT (0-50) U/L Alkaline Phosphatase (38-126) U/L Serum Total Protein (6.3-8.2) g/dL Albumin (3.5-5.0) g/dL Urine Color (Yellow) Urine Appearance (Clear) Urine pH (4.6-8.0) Ur Specific Bartlett (1.005-1.030) Urine Protein (Negative) Urine Glucose (UA) (Negative) mg/dL Urine Ketones (Negative) Urine Blood (Negative) Urine Nitrite (Negative) Urine Bilirubin (Negative) Urine Urobilinogen (0.2) mg/dL Ur Leukocyte Esterase (Negative) U Hyaline Cast (Auto) (0-2) /LPF Urine Microscopic RBC (0-5) /HPF Urine Microscopic WBC (0-5) /HPF Ur Epithelial Cells (None Seen) /HPF Urine Bacteria (None Seen) /HPF Urine Culture Reflexed (NO) Slides for Path Review 07/18/24 07/19/24 Range/Units 20:54 04:55 WBC 16.2 H (4.23-9.07) x10^3/uL RBC 3.86 L (4.63-6.08) x10^6/uL Hgb 12.1 L (13.7-17.5) g/dL Hct 37.3 L (40.1-51.0) % MCV 96.6 H (79.0-92.2) fL MCH 31.3 (25.7-32.2) pg MCHC 32.4 (32.3-36.5) g/dL RDW 13.3 (11.6-14.4) % Plt Count 298 (163-337) x10^3/uL MPV 10.1 (9.4-12.4) fL Gran % 87.9 H (34.0-67.9) % Immature Gran % (Auto) 0.6 H (0.001-0.429) % Nucleat RBC Rel Count 0.0 (0.00-0.2) % Eos # (Auto) 0 L (0.04-0.54) x10^3/uL Immature Gran # (Auto) 0.10 H (0.001-0.031) x10^3u/L Absolute Lymphs (auto) 0.88 L (1.32-3.57) x10^3/uL Absolute Monos (auto) 0.97 H (0.30-0.82) x10^3/uL Absolute Nucleated RBC 0.00 (0.00-0.012) x10^3u/L Lymphocytes % 5.4 L (21.8-53.1) % Monocytes % 6.0 (5.3-12.2) % Eosinophils % 0.0 L (0.8-7.0) % Basophils % 0.1 L (0.2-1.2) % Absolute Granulocytes 14.26 H (1.78-5.38) x10^3/uL Basophils # 0.02 (0.01-0.08) x10^3/uL Sodium (135-145) mmol/L Potassium (3.5-5.1) mmol/L Chloride (98-107) mmol/L Carbon Dioxide (22-30) mmol/L Anion Gap (5-15) MEQ/L BUN (9-20) mg/dL Creatinine (0.66-1.25) mg/dL Estimated GFR ML/MIN Glucose (74-106) mg/dL POC Glucometer 185 H (74 to 106) mg/dL Calcium (8.4-10.2) mg/dL Total Bilirubin (0.2-1.3) mg/dL AST (17-59) U/L ALT (0-50) U/L Alkaline Phosphatase (38-126) U/L Serum Total Protein (6.3-8.2) g/dL Albumin (3.5-5.0) g/dL Urine Color (Yellow) Urine Appearance (Clear) Urine pH (4.6-8.0) Ur Specific Bartlett (1.005-1.030) Urine Protein (Negative) Urine Glucose (UA) (Negative) mg/dL Urine Ketones (Negative) Urine Blood (Negative) Urine Nitrite (Negative) Urine Bilirubin (Negative) Urine Urobilinogen (0.2) mg/dL Ur Leukocyte Esterase (Negative) U Hyaline Cast (Auto) (0-2) /LPF Urine Microscopic RBC (0-5) /HPF Urine Microscopic WBC (0-5) /HPF Ur Epithelial Cells (None Seen) /HPF Urine Bacteria (None Seen) /HPF Urine Culture Reflexed (NO) Slides for Path Review Radiology Exams: Radiology Procedures Category Date Time Status CHEST WITH CONTRAST [CT] Stat Exams 07/17/24 10:47 Completed Assessment/Plan (1) Acute respiratory failure with hypoxia Current Visit: Yes Status: Acute Assessment & Plan: -Chest CT reviewed excludes pulmonary embolism, but shows new consolidating opacities in the right upper, left lower, and right lower lobes, which are concerning for an infectious or inflammatory process, possibly COVID-19 pneumonia, though subsegmental atelectasis remains a consideration. -Supplemental oxygen with goal spo2 > 90% -RT eval and follow -Nebs/INH -Dexamethasone 6mg daily x 10 days per Covid guidelines -Remdesivir to treat Covid -Ceftriaxone/Azithromycin for pneumonia -WBC reviewed at 13.8 - trend/Blood cultures pending -Sputum culture 07/18/24: -Procal negative -sputum cult with gram pos cocci and gram negative rods -continue remdesivir/ceftriaxone/ azithromycin/dexamethasone -WBC reviewed and WNL 07/19: -WBC reviewed at 16.2 - steroids -continue abx/steroids -sputum cult pending final sensitivity Code(s): J96.01 - ACUTE RESPIRATORY FAILURE WITH HYPOXIA (2) COPD exacerbation Current Visit: Yes Status: Acute Assessment & Plan: -see ARF Code(s): J44.1 - CHRONIC OBSTRUCTIVE PULMONARY DISEASE W (ACUTE) EXACERBATION (3) COVID-19 Current Visit: Yes Status: Acute Assessment & Plan: -See ARF Code(s): U07.1 - COVID-19 (4) Leukocytosis Current Visit: Yes Status: Acute Assessment & Plan: -Most likely secondary to pneumonia -COVID 19+ -WBC reviewed at 13.8 -Blood cultures pending -sputum culture pending -Add UA -Procalcitonin/lactic acid 07/18: -WBC reviewed at 5.8 <13.8 and WNL 07/19: -WBC elevated most likely secondary to initiation of steroids - will trend Code(s): D72.829 - ELEVATED WHITE BLOOD CELL COUNT, UNSPECIFIED (5) Pneumonia Current Visit: Yes Status: Acute Assessment & Plan: -see plan in ARF Code(s): J18.9 - PNEUMONIA, UNSPECIFIED ORGANISM (6) Pre-diabetes Current Visit: Yes Status: Acute Assessment & Plan: -Patient takes metformin at home - currently on hold due to CT contrast exam -ADA Diet -accuchecks -SSI -A1c 6.04- controlled Code(s): R73.03 - PREDIABETES (7) Afib Current Visit: Yes Status: Acute Assessment & Plan: -Continue diltiazem -Does not take anticoag- does not follow with cardiology Code(s): I48.91 - UNSPECIFIED ATRIAL FIBRILLATION (8) Anxiety Current Visit: No Status: Acute Assessment & Plan: -continue home meds sertraline and alprazolam VTE: lovenox PPI: protonix Dispo: 2-3 days Code status: Full code Code(s): J96.01 - ACUTE RESPIRATORY FAILURE WITH HYPOXIA (2) COPD exacerbation Current Visit: Yes Status: Acute Code(s): J44.1 - CHRONIC OBSTRUCTIVE PULMONARY DISEASE W (ACUTE) EXACERBATION (3) COVID-19 Current Visit: Yes Status: Acute Code(s): U07.1 - COVID-19 (4) Leukocytosis Current Visit: Yes Status: Acute Code(s): D72.829 - ELEVATED WHITE BLOOD CELL COUNT, UNSPECIFIED (5) Pneumonia Current Visit: Yes Status: Acute Code(s): J18.9 - PNEUMONIA, UNSPECIFIED ORGANISM (6) Pre-diabetes Current Visit: Yes Status: Acute Code(s): R73.03 - PREDIABETES (7) Afib Current Visit: Yes Status: Acute Code(s): I48.91 - UNSPECIFIED ATRIAL FIBRILLATION (8) Anxiety Current Visit: No Status: Acute Code(s): F41.9 - ANXIETY DISORDER, UNSPECIFIED
[2024-07-19 05:26] LABS: ALBUMIN 3.2 g/dL (3.5-5.0); ANION GAP 9.2 MEQ/L (5-15); BILIRUBIN,TOTAL 0.2 mg/dL (0.2-1.3); Calcium 8.5 mg/dL (8.4-10.2); Creatinine 1 0.62 mg/dL (0.66-1.25); EST GLOMERULAR FILTRATION RATE 98.4 ML/MIN; Potassium 4.2 mmol/L (3.5-5.1); Total Protein 5.7 g/dL (6.3-8.2)
[2024-07-19] MEDS ORDERED: DUONEB 0.5-3 MG/3 ml Neb IH PRN (07:54)
[2024-07-20 05:48] LABS: Absolute Neutrophil Ct (ANC) 10.98 x10^3/uL (1.78-5.38); BASOPHIL % 0.2 % (0.2-1.2); Basophil (Absolute #) 0.02 x10^3/uL (0.01-0.08); Eosinophil (Absolute #) 0 x10^3/uL (0.04-0.54); Hematocrit 42.6 % (40.1-51.0); Hemoglobin 13.5 g/dL (13.7-17.5); IMMATURE GRAN # 0.11 x10^3u/L (0.001-0.031); IMMATURE GRAN % 0.9 % (0.001-0.429); Lymphocyte (Absolute #) 0.74 x10^3/uL (1.32-3.57); Lymphocytes % 5.8 % (21.8-53.1); Mean Cell Volume 98.2 fL (79.0-92.2); Mean Corpuscular Hemoglobin 31.1 pg (25.7-32.2); Mean Corpuscular Hgb Concent. 31.7 g/dL (32.3-36.5); Mean Platelet Volume 9.9 fL (9.4-12.4); Monocyte (Absolute #) 0.98 x10^3/uL (0.30-0.82); Monocytes % 7.6 % (5.3-12.2); Neutrophil % 85.5 % (34.0-67.9); Platelet Count 301 x10^3/uL (163-337); Red Blood Count 4.34 x10^6/uL (4.63-6.08); Red Cell Distribution Width 13.2 % (11.6-14.4); White Blood Count 12.8 x10^3/uL (4.23-9.07)
--- NOTE | 2024-07-20 05:50 | PCM.DS ---
Discharge Summary Date of Admission: 07/17/24 13:34 Date of Discharge: 07/20/24 Admitting Physician: JIMMY RUSH MD Primary Care Provider: CASANDRA HENSLEY Allergies Allergies No Known Drug Allergies Allergy (Verified 06/16/24 20:53) Hospital Summary - Hospital Course Hospital Course: Mr. Andrews, a 78-year-old male with a history of COPD, atrial fibrillation, and anxiety, was admitted on 07/17/24 with progressive dyspnea and cough over the past month. Despite outpatient treatment with steroids and antibiotics, his symptoms worsened, and he was found to be COVID-19 positive with multifocal pneumonia on chest CT. Initial workup revealed leukocytosis, elevated D-dimer, and hypoxia, requiring supplemental oxygen. He was treated with dexamethasone, remdesivir, ceftriaxone, and azithromycin, along with nebulizer treatments and supportive care. His condition gradually improved, with reduced dyspnea and cough, though persistent weakness remained. His WBC elevation was attributed to steroid use, and cultures were monitored with a pre-head of gram negative bacteria which will be followed. Throughout his hospitalization, he remained hemodynamically stable. His atrial fibrillation was managed with diltiazem, and his pre-diabetes was monitored with controlled glucose levels. At discharge, he was at his oxygen baseline and deemed stable for home dismissal with prescriptions for cefuroxime and a dexamethasone. He was advised to follow up wi th his [facility] and primary care provider, with a recommendation to establish cardiology care for ongoing Afib management. Discharge Note New Diagnosis: Covid pneumonia New Medications: cefuroxime/ dexamethasone Follow Up: Pulm/ PCP Results pending: sputum culture I spent 35 minutes [id number] with the patient on the day of discharge performing discharge exam, discussing hospital stay and discharge instructions with patient and caregivers, preparation of discharge records, prescriptions & referral forms and addressing any questions/concerns the patient had as documented above. - Vitals & Intake/Output Vital Signs: Vital Signs Temperature 97.8 F 07/20/24 04:00 Pulse Rate 74 07/20/24 04:00 Respiratory Rate 18 07/20/24 04:00 Blood Pressure 147/61 07/20/24 04:00 O2 Sat by Pulse Oximetry 99 07/20/24 04:00 Intake & Output: Intake & Output 07/17/24 07/18/24 07/19/24 07/20/24 11:59 11:59 11:59 11:59 Intake Total 1060 1220 1520 Output Total 900 100 Balance 160 1120 1520 Weight 50.2 kg 52.8 kg 53.3 kg - Lab Result Diagrams: 07/20/24 05:02 07/20/24 05:02 Lab Results-Last 24 Hrs: Lab Results-Last 24 Hours 07/19/24 07/19/24 07/19/24 Range/Units 07:39 11:37 15:56 POC Glucometer 106 146 H 148 H (74 to 106) mg/dL 07/19/24 Range/Units 21:35 POC Glucometer 138 H (74 to 106) mg/dL Micro Results-Entire Visit: Microbiology 07/18/24 00:00 Gram Stain - Final Sputum - Expectorant Sputum Culture - Preliminary GRAM NEGATIVE ID AND SENSITIVITY PENDING 07/17/24 10:02 Blood Culture - Preliminary Blood 07/17/24 10:02 Blood Culture - Preliminary Blood Accuchecks Date 07/19/24 Date 07/19/24 Date 07/19/24 Date 07/19/24 Time 21:35 Time 16:45 Time 11:58 Time 07:50 - Procedures and Test Procedures and Tests throughout Hospitalization: Therapy Orders & Screens 07/17/24 09:34 Respiratory Therapy Assessment DAILY Comment: 07/17/24 14:03 Respiratory Therapy Consult ONCE Comment: Reason For Exam: Diagnosis: Covid 07/17/24 14:06 Respiratory Therapy Consult ROUTINE Comment: Reason For Exam: Diagnosis: Covid 07/17/24 14:28 RT Screen per Nursing Assess ONCE Comment: Protocol Order Physician Instructions: Greater than 3 points order RT Admission Screen Reason For Exam: Triggered on Admission Diagnosis: Covid Diagnosis: Covid Pneumonia: Yes Home O2: Yes Asthma: No Home CPAP/BIPAP: No Home Nebs/MDI: Yes Total Points: 13 ST Screen per Nursing Assess ONCE Comment: Protocol Order Physician Instructions: Greater than [address] Admission Screening Reason For Exam: Triggered on Admission Diagnosis: Covid CVA/Dysphagia/Aphasia: No Cognitive Deficits: No Dehydration/Nutrition Deficit: No Reflux: No Oral-Motor Difficulties: No Pneumonia: Yes Care Home Resident: No Total Points: 5 07/17/24 14:56 Oxygen Nasal Cannula 2 lpm Comment: Diagnosis: Covid 07/18/24 07:00 Respiratory MDI UD Comment: home trelegy Diagnosis: Covid 07/18/24 22:36 Flutter Therapy UD Comment: Diagnosis: Covid Discharge Exam General Appearance: no apparent distress Neurologic Exam: alert, oriented x 3, cooperative Eye Exam: PERRL Ears, Nose, Throat Exam: normal ENT inspection Neck Exam: normal inspection Respiratory Exam: diminished breath sounds, wheezing Cardiovascular Exam: regular rate/rhythm, normal heart sounds Gastrointestinal/Abdomen Exam: soft, normal bowel sounds Male Genitalia Exam: deferred Rectal Exam: deferred Back Exam: normal inspection Extremity Exam: normal inspection Skin Exam: normal color Final Diagnosis/Problem List - Final Discharge Diagnosis/Problem (1) Acute respiratory failure with hypoxia Current Visit: Yes Status: Resolved Code(s): J96.01 - ACUTE RESPIRATORY FAILURE WITH HYPOXIA (2) COPD exacerbation Current Visit: Yes Status: Acute Code(s): J44.1 - CHRONIC OBSTRUCTIVE PULMONARY DISEASE W (ACUTE) EXACERBATION (3) COVID-19 Current Visit: Yes Status: Acute Code(s): U07.1 - COVID-19 (4) Leukocytosis Current Visit: Yes Status: Acute Code(s): D72.829 - ELEVATED WHITE BLOOD CELL COUNT, UNSPECIFIED (5) Pneumonia Current Visit: Yes Status: Acute Code(s): J18.9 - PNEUMONIA, UNSPECIFIED ORGANISM (6) Pre-diabetes Current Visit: Yes Status: Chronic Code(s): R73.03 - PREDIABETES (7) Afib Current Visit: Yes Status: Chronic Code(s): I48.91 - UNSPECIFIED ATRIAL FIBRILLATION (8) Anxiety Current Visit: No Status: Chronic Code(s): F41.9 - ANXIETY DISORDER, UNSPECIFIED - Discharge Discharge Date: 07/20/24 Disposition: Home, Self-Care Condition: Stable Prescriptions: New cefuroxime axetiL [Cefuroxime] 500 mg PO BID 7 Days #14 tablet PANTOPRAZOLE 40 mg Tablet [Protonix 40MG Tablet] 40 mg PO QAM 30 Days #30 tab dexAMETHasone [Dexamethasone] 6 mg PO DAILY 6 Days #6 tablet Continue Simvastatin 20Mg [Zocor 20Mg] 20 mg PO HS Montelukast Sodium 10 mg [Singulair 10 MG] 10 mg PO HS Sertraline HCl [Zoloft] 100 mg PO DAILY Fluticasone/Umeclidin/Vilanter [Trelegy Ellipta 200-62.5-25] 1 each IH DAILY dilTIAZem HCL [Diltiazem 24Hr ER (Cd)] 120 mg PO DAILY Metformin HCl [Metformin HCl ER] 500 mg PO DAILY Albuterol Sulfate [Albuterol Sulfate Hfa] 2 puff IH DAILY PRN PRN Reason: Shortness Of Breath ALPRAZolam [Alprazolam] 0.5 mg PO TID Discontinued Prednisone 10 mg [Deltasone 10 mg] 10 mg PO DAILY Instructions: Pneumonia in adults, COVID-19 in adults - Discharge instructions Additional Instructions: Hold home dose of prednisone until you complete your course of dexamethasone Follow up with: CASANDRA HENSLEY MD [Primary Care Provider] - 07/28/24 11:00 am
[2024-07-20 06:03] LABS: ALBUMIN 3.7 g/dL (3.5-5.0); BILIRUBIN,TOTAL 0.3 mg/dL (0.2-1.3); Calcium 8.8 mg/dL (8.4-10.2); Creatinine 1 0.58 mg/dL (0.66-1.25); EST GLOMERULAR FILTRATION RATE 100.5 ML/MIN; Potassium 4.4 mmol/L (3.5-5.1); Total Protein 6.3 g/dL (6.3-8.2)
[2024-07-20 12:50] VITALS: BP 114/72; PULSE 66; TEMP 97.9; O2SAT 99
[2024-07-20 15:54] VITALS: RESP 18
== END 2024-07-20 17:11 | disposition home or self-care (01) ==
LOC: ED 09:25 → MED SURG 13:34
PROVIDERS: ADMIT Internal Medicine; ATTEND Internal Medicine
DX: J96.01 Acute respiratory failure with hypoxia (principal); J44.1 Chronic obstructive pulmonary disease with (acute) exacerbation; U07.1 COVID-19; D72.829 Elevated white blood cell count, unspecified; J18.9 Pneumonia, unspecified organism; R73.03 Prediabetes; I48.91 Unspecified atrial fibrillation; F41.9 Anxiety disorder, unspecified; Z79.899 Other long term (current) drug therapy
CPT/HCPCS: 0241U; 36415; 71260; 80053; 81001; 82947; 83036; 83605; 83735; 83880; 84145; 84484; 85025; 85379; 87040; 87070; 87077; 87186; 93005; 93041; 94640; 94667; 94668; 94760; 96374; 99285; Q3014; 93268; J0248; J0456; J0696; J1100; J1650; J2919; A9270-GY; G0378

== ENCOUNTER 2025-01-10 08:33 | Observation (INO) | payer MEDICARE ==
[2025-01-10] MEDS ORDERED: Sterile H2O 10 ml IJ ONE (08:44)
--- NOTE | 2025-01-10 08:52 | ERPHSYRPT ---
- History of Present Illness Time Seen by Provider: 01/10/25 08:40 Source: patient Physician History: Patient presents by ambulance. He reports a history of COPD. He denies any chest pain. He reports that he has been short of breath and coughing for 2 to 3 weeks with generalized fatigue. Thinks he may have had a low-grade fever. Denies any exertional chest pain or lower extremity symptoms that are new. He states he has taken his medication at home but continues to have a nonproductive cough and wheezing. He reports he mostly feels short of breath with exertion but states that his dyspnea and wheezing in creased this morning. He received albuterol and route states he feels about the same. He reports he is on home oxygen but does not recall the amount. Allergies/Adverse Reactions: No Known Drug Allergies Allergy (Verified 06/16/24 20:53) Home Medications: Albuterol Sulfate [Albuterol Sulfate Hfa] 2 puff IH DAILY PRN 07/17/24 [History] Fluticasone/Umeclidin/Vilanter [Trelegy Ellipta 200-62.5-25] 1 each IH DAILY 07/17/24 [History] Metformin HCl [Metformin HCl ER] 500 mg PO DAILY 07/17/24 [History] Montelukast Sodium 10 mg [Singulair 10 MG] 10 mg PO HS 07/17/24 [History] Sertraline HCl [Zoloft] 100 mg PO DAILY 07/17/24 [History] Simvastatin 20Mg [Zocor 20Mg] 20 mg PO HS 07/17/24 [History] dilTIAZem HCL [Diltiazem 24Hr ER (Cd)] 120 mg PO DAILY 07/17/24 [History] ALPRAZolam [Alprazolam] 0.5 mg PO TID 01/10/25 [History] Mirtazapine 30 mg [Remeron 30 mg] 30 mg PO DAILY 01/10/25 [History] Zolpidem Tartrate 5 mg [Ambien 5 MG Tablet] 5 mg PO HS 01/10/25 [History] Hx Tetanus, Diphtheria Vaccination/Date Given: Yes Hx Influenza Vaccination/Date Given: Yes Hx Pneumococcal Vaccination/Date Given: Yes Travel Risk - Emerging Infectious Disease Are you exhibiting symptoms associated with any current EIDs: Yes Symptoms: Shortness of Breath - Review of Systems Constitutional: Fatigue, No Fever, No Chills Eyes: No Symptoms Ears, Nose, & Throat: No Symptoms Respiratory: Cough, Dyspnea Cardiac: No Chest Pain, No Edema, No Syncope Abdominal/Gastrointestinal: No Abdominal Pain, No Nausea, No Vomiting, No Diarrhea Genitourinary Symptoms: No Dysuria Musculoskeletal: No Back Pain, No Neck Pain Skin: No Rash Neurological: No Dizziness, No Focal Weakness, No Sensory Changes Psychological: No Symptoms Endocrine: No Symptoms All Other Systems: Reviewed and Negative - Past Medical History Pertinent Past Medical History: Yes Neurological History: No Pertinent History ENT History: Cataracts Cardiac History: Arrhythmia Respiratory History: COPD, Other Endocrine Medical History: No Pertinent History Musculoskeletal History: No Pertinent History GI Medical History: No Pertinent History History: No Pertinent History Psycho-Social History: Anxiety Male Reproductive Disorders: No Pertinent History Other Medical History: Former smoker. follows [facility] - Past Surgical History Past Surgical History: Yes Neuro Surgical History: No Pertinent History Cardiac: No Pertinent History Respiratory: No Pertinent History Gastrointestinal: Other Genitourinary: No Pertinent History Musculoskeletal: No Pertinent History Male Surgical History: No Pertinent History Other Surgical History: hx of colonoscopy 2018. Skin lesion removed from right elbow 10-15 years ago. Pt denied any other procedures or surgeries. Heart cath in 2011 Significant Family History: heart disease, cancer - Social History Smoking Status: Former smoker - Social Determinants of Health Will the patient participate in the screening: Declined to provide - Nursing Vital Signs Nursing Vital Signs: Initial Vital Signs Temperature 99.5 F 01/10/25 08:34 Pulse Rate 81 01/10/25 08:34 Respiratory Rate 24 01/10/25 08:34 Blood Pressure 127/81 01/10/25 08:34 O2 Sat by Pulse Oximetry 99 01/10/25 08:34 Pain Scale Pain Intensity 0 - Physical Exam General Appearance: mild distress, other (Patient is slightly anxious, talking in short sentences, intermittent coughing) Eye Exam: PERRL/EOMI, eyes nml inspection Ears, Nose, Throat Exam: normal ENT inspection, TMs normal, pharynx normal, moist mucous membranes Neck Exam: normal inspection, non-tender, supple, full range of motion Respiratory Exam: other (Mildly tachypneic with retractions. Diminished bilaterally with expiratory wheezing) Cardiovascular Exam: regular rate/rhythm, normal heart sounds Gastrointestinal/Abdomen Exam: soft Back Exam: normal inspection, normal range of motion, No CVA tenderness, No vertebral tenderness Extremity Exam: normal inspection, normal range of motion, pelvis stable Neurologic Exam: alert, oriented x 3, cooperative, normal mood/affect, nml cerebellar function, nml station & gait, sensation nml, No motor deficits SpO2 Interpretation: O2 applied SpO2: 99 Ordered Tests: Active Orders 24 hr Category Date Time Status Director Foundation STAT Care 01/10/25 08:44 Active EKG-ER Only STAT Care 01/10/25 08:42 Active IV Insertion STAT Care 01/10/25 08:42 Active CHEST 1 VIEW (PORTABLE) Stat Exams 01/10/25 08:42 Completed CBC W DIFF Stat Lab 01/10/25 09:03 Completed CMP Stat Lab 01/10/25 09:03 Completed Lactic Acid Stat Lab 01/10/25 08:42 Completed NT PRO BNPII Stat Lab 01/10/25 09:03 Completed TROPONIN Q4H Lab 01/10/25 09:03 Completed TROPONIN Q4H Lab 01/10/25 12:45 Ordered TROPONIN Q4H Lab 01/10/25 16:45 Ordered Respiratory Therapy Assessment DAILY RT 01/10/25 08:54 Completed Medication Summary Discontinued Medications Generic Name Dose Route Start Last Admin Trade Name Freq PRN Reason Stop Dose Admin Albuterol/Ipratropium 6 ml 01/10/25 08:42 01/10/25 09:00 Ipratropium/Albuterol Sulfate 3 Ml Ampul.Neb IH 01/10/25 08:43 6 ml STAT ONE Administration Albuterol/Ipratropium Confirm 01/10/25 08:57 Ipratropium/Albuterol Sulfate 3 Ml Ampul.Neb Administered 01/10/25 08:58 Dose 3 ml IH .STK-MED ONE Albuterol/Ipratropium Confirm 01/10/25 09:03 Ipratropium/Albuterol Sulfate 3 Ml Ampul.Neb Administered 01/10/25 09:04 Dose 3 ml IH .STK-MED ONE Methylprednisolone Sodium 0 mg 01/10/25 08:42 01/10/25 09:29 Succinate 125 mg/ Sterile IV 01/10/25 08:43 125 mg Water 2 ml STAT ONE Administration Methylprednisolone Sodium Succinate Confirm 01/10/25 08:45 Methylprednis Sod Succ 125 Mg/2 Ml Vial Administered 01/10/25 08:46 Dose 125 mg .ROUTE .[employer] ONE Sterile Water Confirm 01/10/25 08:44 Water For Injection,Sterile 10 Ml Vial Administered 01/10/25 08:45 Dose 10 ml IJ .[employer] ONE Lab/Rad Data: Laboratory Result Diagrams 01/10/25 09:03 01/10/25 09:03 Laboratory Results 01/10/25 01/10/25 01/10/25 Range/Units 09:03 09:03 09:03 WBC (4.23-9.07) x10^3/uL RBC (4.63-6.08) x10^6/uL Hgb (13.7-17.5) g/dL Hct (40.1-51.0) % MCV (79.0-92.2) fL MCH (25.7-32.2) pg MCHC (32.3-36.5) g/dL RDW (11.6-14.4) % Plt Count (163-337) x10^3/uL MPV (9.4-12.4) fL Gran % (34.0-67.9) % Immature Gran % (Auto) (0.001-0.429) % Nucleat RBC Rel Count (0.00-0.2) % Eos # (Auto) (0.04-0.54) x10^3/uL Immature Gran # (Auto) (0.001-0.031) x10^3u/L Absolute Lymphs (auto) (1.32-3.57) x10^3/uL Absolute Monos (auto) (0.30-0.82) x10^3/uL Absolute Nucleated RBC (0.00-0.012) x10^3u/L Lymphocytes % (21.8-53.1) % Monocytes % (5.3-12.2) % Eosinophils % (0.8-7.0) % Basophils % (0.2-1.2) % Absolute Granulocytes (1.78-5.38) x10^3/uL Basophils # (0.01-0.08) x10^3/uL Sodium 143 (135-145) mmol/L Potassium 4.5 (3.5-5.1) mmol/L Chloride 98 (98-107) mmol/L Carbon Dioxide 39 H (22-30) mmol/L Anion Gap 9.9 (5-15) MEQ/L BUN 18 (9-20) mg/dL Creatinine 0.83 (0.66-1.25) mg/dL Estimated GFR 89.6 ML/MIN Glucose 112 H (74-106) mg/dL Lactic Acid (0.4-2.0) Calcium 9.1 (8.4-10.2) mg/dL Total Bilirubin 0.30 (0.2-1.3) mg/dL AST 18 (17-59) U/L ALT 12 (0-50) U/L Alkaline Phosphatase 81 (38-126) U/L Troponin I < 0.012 (0.000-0.033) ng/mL NT-Pro-B Natriuret Pep 88.9 (<300) pg/mL Serum Total Protein 6.3 (6.3-8.2) g/dL Albumin 3.8 (3.5-5.0) g/dL Influenza Type A Ag NEGATIVE (NEGATIVE) Influenza Type B Ag NEGATIVE (NEGATIVE) RSV (PCR) NEGATIVE (NEGATIVE) SARS-CoV-2 (PCR) NEGATIVE (NEGATIVE) 01/10/25 01/10/25 Range/Units 09:03 08:42 WBC 9.2 H (4.23-9.07) x10^3/uL RBC 4.50 L (4.63-6.08) x10^6/uL Hgb 13.5 L (13.7-17.5) g/dL Hct 43.6 (40.1-51.0) % MCV 96.9 H (79.0-92.2) fL MCH 30.0 (25.7-32.2) pg MCHC 31.0 L (32.3-36.5) g/dL RDW 12.9 (11.6-14.4) % Plt Count 198 (163-337) x10^3/uL MPV 10.5 (9.4-12.4) fL Gran % 58.0 (34.0-67.9) % Immature Gran % (Auto) 0.4 (0.001-0.429) % Nucleat RBC Rel Count 0.0 (0.00-0.2) % Eos # (Auto) 0.31 (0.04-0.54) x10^3/uL Immature Gran # (Auto) 0.04 H (0.001-0.031) x10^3u/L Absolute Lymphs (auto) 2.61 (1.32-3.57) x10^3/uL Absolute Monos (auto) 0.84 H (0.30-0.82) x10^3/uL Absolute Nucleated RBC 0.00 (0.00-0.012) x10^3u/L Lymphocytes % 28.2 (21.8-53.1) % Monocytes % 9.1 (5.3-12.2) % Eosinophils % 3.4 (0.8-7.0) % Basophils % 0.9 (0.2-1.2) % Absolute Granulocytes 5.36 (1.78-5.38) x10^3/uL Basophils # 0.08 (0.01-0.08) x10^3/uL Sodium (135-145) mmol/L Potassium (3.5-5.1) mmol/L Chloride (98-107) mmol/L Carbon Dioxide (22-30) mmol/L Anion Gap (5-15) MEQ/L BUN (9-20) mg/dL Creatinine (0.66-1.25) mg/dL Estimated GFR ML/MIN Glucose (74-106) mg/dL Lactic Acid 1.0 (0.4-2.0) Calcium (8.4-10.2) mg/dL Total Bilirubin (0.2-1.3) mg/dL AST (17-59) U/L ALT (0-50) U/L Alkaline Phosphatase (38-126) U/L Troponin I (0.000-0.033) ng/mL NT-Pro-B Natriuret Pep (<300) pg/mL Serum Total Protein (6.3-8.2) g/dL Albumin (3.5-5.0) g/dL Influenza Type A Ag (NEGATIVE) Influenza Type B Ag (NEGATIVE) RSV (PCR) (NEGATIVE) SARS-CoV-2 (PCR) (NEGATIVE) Procedures: 9817-5622 RAD/CHEST 1 VIEW (PORTABLE) Indication: Cough. Comparison: July 05, 2024 Portable chest again demonstrates COPD and right lung calcified granulomas. Improvement previous left base infiltrate/atelectasis with minimal residual. Remaining heart and lungs unremarkable. Bony thorax intact again with osteopenia and degenerative changes. Nothing new. Reported by: SHAZIA VEGA DO Signed by: SHAZIA VEGA DO Signed date/time: 01/10/2507 - Progress Progress Note: 01/10/25 08:50 Patient presenting with 3 weeks of cough and difficulty breathing KG reviewed sinus tach at [address] and T wave abnormality Patient was given 2 DuoNeb's and 125 mg of IV Solu-Medrol CBC chemistries cardiac markers BMP and chest x-ray were ordered. 01/10/25 09:52 Records negative chest x-ray negative. No flu or COVID. Improved but remains somewhat symptomatic. Care discussed with hospitalist who will except for admission Medical Desision Making - Discussion of managment Care discussed with:: on-call "doc" Agreed on:: decision to admit, place in obs Will see patient: in hospital - Departure Departure Disposition: Observation Clinical Impression: COPD exacerbation Condition: Stable Critical Care Time: No Referrals: CASANDRA HENSLEY MD [Primary Care Provider, [facility]] - Follow up/PCP as directed Instructions: Chronic Obstructive Pulmonary Disease
[2025-01-10] MEDS ORDERED: DUONEB 0.5-3 MG/3 ml Neb IH ONE ×2 (08:57→09:03)
[2025-01-10] MEDS: DUONEB 0.5-3 MG/3 ml Neb IH ONE (09:00)
[2025-01-10 09:09] LABS: BASOPHIL % 0.9 % (0.2-1.2); Basophil (Absolute #) 0.08 x10^3/uL (0.01-0.08); Eosinophil (Absolute #) 0.31 x10^3/uL (0.04-0.54); Hematocrit 43.6 % (40.1-51.0); Hemoglobin 13.5 g/dL (13.7-17.5); IMMATURE GRAN # 0.04 x10^3u/L (0.001-0.031); IMMATURE GRAN % 0.4 % (0.001-0.429); Lymphocyte (Absolute #) 2.61 x10^3/uL (1.32-3.57); Mean Corpuscular Hemoglobin 30.0 pg (25.7-32.2); Mean Corpuscular Hgb Concent. 31.0 g/dL (32.3-36.5); Monocyte (Absolute #) 0.84 x10^3/uL (0.30-0.82); NUCLEATED RBC # 0.00 x10^3u/L (0.00-0.012); NUCLEATED RBC % 0.0 % (0.00-0.2); Platelet Count 198 x10^3/uL (163-337); Red Blood Count 4.50 x10^6/uL (4.63-6.08); White Blood Count 9.2 x10^3/uL (4.23-9.07)
--- NOTE | 2025-01-10 09:09 | XRAY ---
Indication: Cough. Comparison: July 05, 2024 Portable chest again demonstrates COPD and right lung calcified granulomas. Improvement previous left base infiltrate/atelectasis with minimal residual. Remaining heart and lungs unremarkable. Bony thorax intact again with osteopenia and degenerative changes. Nothing new.
[2025-01-10] MEDS: solu-MEDROL 125 MG, Sterile H2O 10 ml 2 ML IV ONE (09:29)
[2025-01-10 09:31] LABS: Calcium 9.1 mg/dL (8.4-10.2); Carbon Dioxide 39.0 mmol/L (22-30); Creatinine 1 0.83 mg/dL (0.66-1.25); EST GLOMERULAR FILTRATION RATE 89.6 ML/MIN; Glucose 112.0 mg/dL (74-106); NT PRO BNPII 88.9 pg/mL (<300); Potassium 4.5 mmol/L (3.5-5.1); SGOT/AST 18.0 U/L (17-59); SGPT/ALT 12.0 U/L (0-50); Total Protein 6.3 g/dL (6.3-8.2)
[2025-01-10 09:45] LABS: INFLUENZA A NEGATIVE (NEGATIVE); INFLUENZA B NEGATIVE (NEGATIVE); RESPIRATORY SYNCTIAL VIRUS NEGATIVE (NEGATIVE); SARS-CoV-2 Xpert Express NEGATIVE (NEGATIVE)
[2025-01-10] MEDS ORDERED: Flonase NASAL NS PRN (10:59)
--- NOTE | 2025-01-10 11:01 | PCM.HP ---
History of Present Illness - Chief Complaint Chief Complaint: copd exacerbation Date: 01/10/25 History of Present Illness: is a 79-year-old male with a past medical history of COPD (baseline O2 requirement of 2L via nasal cannula), cataracts, anxiety, and arrhythmia presented with worsening respiratory symptoms. He reports a 2- to 3- week history of shortness of breath, productive cough with white frothy sputum, wheezing, and generalized fatigue. He has also had a low-grade fever of 99.1 F. He denies exertional chest pain or new lower extremity symptoms. Despite adherence to his home medications, his respiratory symptoms have persisted, with increased dyspnea and wheezing noted this morning. In the emergency department, the patient received a DuoNeb treatment with partial relief. Currently on 5lNC 95%. On admission, the plan is to initiate IV antibiotics, IV steroids, scheduled DuoNeb treatments, and to continue his Trelegy inhaler. Chest X-ray demonstrates findings consistent with COPD and right lung calcified granulomas, with interval improvement of a previous left base infiltrate/atelectasis leaving minimal residual changes. The remaining heart and lung structures are unremarkable. The bony thorax is intact, showing osteopenia and degenerative changes, with no acute abnormalities identified. - Review of Systems Constitutional: No Fever, No Chills Eyes: No Symptoms Ears, Nose, & Throat: No Symptoms Respiratory: Cough, Short Of Breath, Wheezing Cardiac: No Chest Pain, No Edema, No Syncope Abdominal/Gastrointestinal: No Abdominal Pain, No Nausea, No Vomiting, No Diarrhea Genitourinary Symptoms: No Dysuria Musculoskeletal: No Back Pain, No Neck Pain Skin: No Rash Neurological: No Dizziness, No Focal Weakness, No Sensory Changes Psychological: No Symptoms Endocrine: No Symptoms Hematologic/Lymphatic: No Symptoms Immunological/Allergic: No Symptoms Medications & Allergies Home Medications: Home Medication List Albuterol Sulfate [Albuterol Sulfate Hfa] 2 puff IH DAILY PRN 07/17/24 [History Confirmed 01/10/25] Fluticasone/Umeclidin/Vilanter [Trelegy Ellipta 200-62.5-25] 1 each IH DAILY 07/17/24 [History Confirmed 01/10/25] Metformin HCl [Metformin HCl ER] 500 mg PO DAILY 07/17/24 [History Confirmed 01/10/25] Montelukast Sodium 10 mg [Singulair 10 MG] 10 mg PO HS 07/17/24 [History Confirmed 01/10/25] Sertraline HCl [Zoloft] 100 mg PO DAILY 07/17/24 [History Confirmed 01/10/25] Simvastatin 20Mg [Zocor 20Mg] 20 mg PO HS 07/17/24 [History Confirmed 01/10/25] dilTIAZem HCL [Diltiazem 24Hr ER (Cd)] 120 mg PO DAILY 07/17/24 [History Confirmed 01/10/25] ALPRAZolam [Alprazolam] 0.5 mg PO TID 01/10/25 [History Confirmed 01/10/25] Fluticasone Propionate 1 spray INTRANASAL DAILY PRN 01/10/25 [History Confirmed 01/10/25] Mirtazapine 30 mg [Remeron 30 mg] 30 mg PO DAILY 01/10/25 [History Confirmed 01/10/25] Zolpidem Tartrate 5 mg [Ambien 5 MG Tablet] 5 mg PO HS 01/10/25 [History Confirmed 01/10/25] Allergies/Adverse Reactions: Allergies Allergy/AdvReac Type Severity Reaction Status Date / Time No Known Drug Allergies Allergy Verified 01/10/25 10:24 - Past Medical History Past Medical History: Yes Neurological History: No Pertinent History ENT History: Cataracts Cardiac History: Arrhythmia, High Cholesterol Respiratory History: COPD, Emphysema, Other Endocrine Medical History: Other Musculoskelatal History: No Pertinent History GI Medical History: No Pertinent History History: No Pertinent History Pyscho-Social History: Anxiety, Depression Male Reproductive Disorders: No Pertinent History Comment: A-fib, Former smoker (quit 8 years ago), COVID in 2023, Insomnia, Office Specialist: Dr. Cleo Kulkarni, Primary Care: Dr. 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 Cervantes and now Dr. Jang manages these medications), Pre-diabetic, shingles - Past Surgical History Past Surgical History: Yes Neuro Surgical History: No Pertinent History Cardiac History: No Pertinent History Respiratory Surgery: No Pertinent History GI Surgical History: No Pertinent History Genitourinary Surgical Hx: No Pertinent History Musculskeletal Surgical Hx: No Pertinent History Male Surgical History: No Pertinent History Other Surgical History: Heart Cath without stent [place] [address] 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 Cope due to refusing to quit smoking. 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 Significant Family History: heart disease, cancer - Social History Smoking Status: Former smoker How long have you smoked: 50 Exposure to second hand smoke: No Alcohol: None Drug Use: none - Social Determinants of Health Will the patient participate in the screening: Declined to provide - Physical Exam Vital Signs: Vital Signs - 24 hr Temp Pulse Resp BP BP Pulse Ox 01/10/25 10:16 99.1 F 76 23 125/82 97 01/10/25 09:59 99 01/10/25 09:30 88 21 119/61 96 01/10/25 09:26 96 H 25 H 99 01/10/25 08:34 99.5 F 81 24 127/81 99 General Appearance: no apparent distress, alert, thin Neurologic Exam: alert, oriented x 3, cooperative, normal mood/affect, nml cerebellar function, nml station & gait, sensation nml, No motor deficits Eye Exam: PERRL/EOMI, eyes nml inspection Ears, Nose, Throat Exam: normal ENT inspection, TMs normal, pharynx normal, moist mucous membranes Neck Exam: normal inspection, non-tender, supple, full range of motion Respiratory Exam: diminished breath sounds, No respiratory distress Cardiovascular Exam: regular rate/rhythm, normal heart sounds, normal peripheral pulses Gastrointestinal/Abdomen Exam: soft, normal bowel sounds, No tenderness, No mass Back Exam: normal inspection, normal range of motion, No CVA tenderness, No vertebral tenderness Extremity Exam: normal inspection, normal range of motion, pelvis stable Skin Exam: normal color, warm, dry, No rash Lymphatic Exam: No adenopathy Results - Labs Lab/Micro Results: Lab Results-Last 24 Hours 01/10/25 01/10/25 01/10/25 Range/Units 08:42 09:03 09:03 WBC 9.2 H (4.23-9.07) x10^3/uL RBC 4.50 L (4.63-6.08) x10^6/uL Hgb 13.5 L (13.7-17.5) g/dL Hct 43.6 (40.1-51.0) % MCV 96.9 H (79.0-92.2) fL MCH 30.0 (25.7-32.2) pg MCHC 31.0 L (32.3-36.5) g/dL RDW 12.9 (11.6-14.4) % Plt Count 198 (163-337) x10^3/uL MPV 10.5 (9.4-12.4) fL Gran % 58.0 (34.0-67.9) % Immature Gran % (Auto) 0.4 (0.001-0.429) % Nucleat RBC Rel Count 0.0 (0.00-0.2) % Eos # (Auto) 0.31 (0.04-0.54) x10^3/uL Immature Gran # (Auto) 0.04 H (0.001-0.031) x10^3u/L Absolute Lymphs (auto) 2.61 (1.32-3.57) x10^3/uL Absolute Monos (auto) 0.84 H (0.30-0.82) x10^3/uL Absolute Nucleated RBC 0.00 (0.00-0.012) x10^3u/L Lymphocytes % 28.2 (21.8-53.1) % Monocytes % 9.1 (5.3-12.2) % Eosinophils % 3.4 (0.8-7.0) % Basophils % 0.9 (0.2-1.2) % Absolute Granulocytes 5.36 (1.78-5.38) x10^3/uL Basophils # 0.08 (0.01-0.08) x10^3/uL Sodium 143 (135-145) mmol/L Potassium 4.5 (3.5-5.1) mmol/L Chloride 98 (98-107) mmol/L Carbon Dioxide 39 H (22-30) mmol/L Anion Gap 9.9 (5-15) MEQ/L BUN 18 (9-20) mg/dL Creatinine 0.83 (0.66-1.25) mg/dL Estimated GFR 89.6 ML/MIN Glucose 112 H (74-106) mg/dL Lactic Acid 1.0 (0.4-2.0) Calcium 9.1 (8.4-10.2) mg/dL Total Bilirubin 0.30 (0.2-1.3) mg/dL AST 18 (17-59) U/L ALT 12 (0-50) U/L Alkaline Phosphatase 81 (38-126) U/L Troponin I (0.000-0.033) ng/mL NT-Pro-B Natriuret Pep 88.9 (<300) pg/mL Serum Total Protein 6.3 (6.3-8.2) g/dL Albumin 3.8 (3.5-5.0) g/dL Influenza Type A Ag (NEGATIVE) Influenza Type B Ag (NEGATIVE) RSV (PCR) (NEGATIVE) SARS-CoV-2 (PCR) (NEGATIVE) 01/10/25 01/10/25 Range/Units 09:03 09:03 WBC (4.23-9.07) x10^3/uL RBC (4.63-6.08) x10^6/uL Hgb (13.7-17.5) g/dL Hct (40.1-51.0) % MCV (79.0-92.2) fL MCH (25.7-32.2) pg MCHC (32.3-36.5) g/dL RDW (11.6-14.4) % Plt Count (163-337) x10^3/uL MPV (9.4-12.4) fL Gran % (34.0-67.9) % Immature Gran % (Auto) (0.001-0.429) % Nucleat RBC Rel Count (0.00-0.2) % Eos # (Auto) (0.04-0.54) x10^3/uL Immature Gran # (Auto) (0.001-0.031) x10^3u/L Absolute Lymphs (auto) (1.32-3.57) x10^3/uL Absolute Monos (auto) (0.30-0.82) x10^3/uL Absolute Nucleated RBC (0.00-0.012) x10^3u/L Lymphocytes % (21.8-53.1) % Monocytes % (5.3-12.2) % Eosinophils % (0.8-7.0) % Basophils % (0.2-1.2) % Absolute Granulocytes (1.78-5.38) x10^3/uL Basophils # (0.01-0.08) x10^3/uL Sodium (135-145) mmol/L Potassium (3.5-5.1) mmol/L Chloride (98-107) mmol/L Carbon Dioxide (22-30) mmol/L Anion Gap (5-15) MEQ/L BUN (9-20) mg/dL Creatinine (0.66-1.25) mg/dL Estimated GFR ML/MIN Glucose (74-106) mg/dL Lactic Acid (0.4-2.0) Calcium (8.4-10.2) mg/dL Total Bilirubin (0.2-1.3) mg/dL AST (17-59) U/L ALT (0-50) U/L Alkaline Phosphatase (38-126) U/L Troponin I < 0.012 (0.000-0.033) ng/mL NT-Pro-B Natriuret Pep (<300) pg/mL Serum Total Protein (6.3-8.2) g/dL Albumin (3.5-5.0) g/dL Influenza Type A Ag NEGATIVE (NEGATIVE) Influenza Type B Ag NEGATIVE (NEGATIVE) RSV (PCR) NEGATIVE (NEGATIVE) SARS-CoV-2 (PCR) NEGATIVE (NEGATIVE) - Radiology Impressions Radiology Exams & Impressions: Radiology Procedures Category Date Time Status CHEST 1 VIEW (PORTABLE) Stat Exams 01/10/25 08:42 Completed Assessment/Plan (1) Pneumonia Current Visit: Yes Status: Acute Assessment & Plan: -IV antibiotics, IV steroids, scheduled DuoNeb treatments, continue his Trelegy inhaler. - Chest X-ray: demonstrates findings consistent with COPD and right lung calcified granulomas, with interval improvement of a previous left base infiltrate/atelectasis leaving minimal residual changes. The remaining heart and lung structures are unremarkable. The bony thorax is intact, showing osteopenia and degenerative changes, with no acute abnormalities identified. - CBC, CMP reviewed - On 5lNC, baseline 2lNC Code(s): J18.9 - PNEUMONIA, UNSPECIFIED ORGANISM (2) COPD exacerbation Current Visit: Yes Status: Acute Assessment & Plan: - See plan above for pneumonia - Added mucinex - D-Dimer pending Code(s): J44.1 - CHRONIC OBSTRUCTIVE PULMONARY DISEASE W (ACUTE) EXACERBATION (3) Type II diabetes mellitus Current Visit: Yes Status: Acute Assessment & Plan: - A1C pending - Metformin held - Low dose S/S - Accuchecks AC/HS (4) Anxiety Current Visit: Yes Status: Chronic Assessment & Plan: - Continue xanax Code(s): F41.9 - ANXIETY DISORDER, UNSPECIFIED (5) Insomnia Current Visit: Yes Status: Chronic Assessment & Plan: - Continue Ambien VTE: Lovenox PPI: Protonix Next of KIN: Rick Pattersonwright [phone] D/C plan: 1-2 days Code status: Full Plan of care time > 40 minutes Code(s): G47.00 - INSOMNIA, UNSPECIFIED
[2025-01-10] MEDS ORDERED: MEDICATION INTERVENTION MC SCH (11:30)
[2025-01-10] MEDS: Protonix 20MG Tablet PO SCH (11:31)
[2025-01-10] MEDS: REMERON 30 MG PO SCH (11:31)
[2025-01-10] MEDS: xanAX 0.5 MG PO SCH (11:31)
[2025-01-10] MEDS: Mucinex 600MG ER Tabs PO SCH (11:31)
[2025-01-10] MEDS: ROCEPHIN 1 GM / 100 ML NaCl 1 GM/100 ML IVPB IV SCH (11:32)
[2025-01-10] MEDS: ZITHROMAX IV*** 500 MG in Sodium Chloride 0.9% 250 ML 250 ML IV SCH (12:02)
[2025-01-10] MEDS: ENOXAPARIN SODIUM SQ SCH (12:05)
[2025-01-10] MEDS: DUONEB 0.5-3 MG/3 ml Neb IH SCH (14:12)
[2025-01-10] MEDS: solu-MEDROL 40 MG, Sterile H2O 10 ml 1 ML IV SCH (15:37)
[2025-01-10] MEDS ORDERED: DUONEB 0.5-3 MG/3 ml Neb IH PRN (16:52)
--- NOTE | 2025-01-10 17:18 | XRAY ---
Indication: Short of breath. Elevated d-dimer. Multiple contiguous axial images obtained through the chest using 80 cc Isovue 370 contrast and PE protocol. Comparison: July 17, 2024 Good opacification pulmonary arteries to include lobar and segmental branches. Again no pulmonary embolus. Heart not enlarged again with scattered coronary calcifications. Aorta again minimally arteriosclerotic without aneurysm/dissection. Stable tiny right hilar calcified nodes. No pathologic mediastinal/hilar lymphadenopathy. Lungs demonstrates new medial right lower lobe irregular subpleural noncalcified nodule measuring at least 1.3 x 1.9 cm with focal pleural thickening (images 37-40). Elsewhere there remains diffuse centrilobular pulmonary emphysema and mild scattered pulmonary fibrosis/scarring including right upper lobe. Again incidental small inferior right upper lobe calcified granuloma. No infiltrate or effusion. Bony thorax intact again with osteopenia and minimal/mild degenerative changes throughout spine. Limited upper abdomen again demonstrates tiny hepatic cysts and 6.8 cm left renal cyst. Impression: 1. Continued negative pulmonary embolus. 2. New medial right lower lobe subpleural irregular noncalcified nodule with focal pleural thickening. Malignancy not completely excluded. PET/CT may yield further formation. 3. Again chronic findings including pulmonary emphysema, pulmonary fibrosis/scarring, arteriosclerotic disease, hepatic/left renal cysts, chronic bony findings, and old granulomatous disease.
[2025-01-10] MEDS: Advair Hfa 115/21 Common canister IH SCH (19:44)
[2025-01-10] MEDS: HUMALOG SQ PRN (21:47)
[2025-01-10] MEDS: ZOCOR 20MG PO SCH (21:49)
[2025-01-10] MEDS: Ambien 5 MG Tablet PO SCH (21:49)
[2025-01-10] MEDS: Singulair 10 MG PO SCH (21:49)
[2025-01-11 05:00] LABS: Hematocrit 37.8 % (40.1-51.0); Hemoglobin 11.4 g/dL (13.7-17.5); Mean Corpuscular Hemoglobin 29.2 pg (25.7-32.2); Mean Corpuscular Hgb Concent. 30.2 g/dL (32.3-36.5); Platelet Count 166 x10^3/uL (163-337); Red Blood Count 3.91 x10^6/uL (4.63-6.08); White Blood Count 6.3 x10^3/uL (4.23-9.07)
[2025-01-11 05:36] LABS: Calcium 8.9 mg/dL (8.4-10.2); Carbon Dioxide 36 mmol/L (22-30); Creatinine 1 0.80 mg/dL (0.66-1.25); EST GLOMERULAR FILTRATION RATE 90.6 ML/MIN; Glucose 190 mg/dL (74-106); Potassium 3.7 mmol/L (3.5-5.1); SGOT/AST 18 U/L (17-59); SGPT/ALT 15 U/L (0-50); Total Protein 6.0 g/dL (6.3-8.2)
--- NOTE | 2025-01-11 09:34 | PCM.NOTE ---
Date and Time: 01/11/25 0928 Subjective Assessment: 01/10/25 is a 79-year-old male with a past medical history of COPD (baseline O2 requirement of 2L via nasal cannula), cataracts, anxiety, and arrhythmia presented with worsening respiratory symptoms. He reports a 2- to 3- week history of shortness of breath, productive cough with white frothy sputum, wheezing, and generalized fatigue. He has also had a low-grade fever of 99.1 F. He denies exertional chest pain or new lower extremity symptoms. Despite adherence to his home medications, his respiratory symptoms have persisted, with increased dyspnea and wheezing noted this morning. In the emergency department, the patient received a DuoNeb treatment with partial relief. Currently on 5lNC 95%. On admission, the plan is to initiate IV antibiotics, IV steroids, scheduled DuoNeb treatments, and to continue his Trelegy inhaler. Chest X-ray demonstrates findings consistent with COPD and right lung calcified granulomas, with interval improvement of a previous left base infiltrate/atelectasis leaving minimal residual changes. The remaining heart and lung structures are unremarkable. The bony thorax is intact, showing osteopenia and degenerative changes, with no acute abnormalities identified. 01/11/25 The patient was resting comfortably in the chair but continues to experience shortness of breath with increased oxygen demand, requiring 4 L nasal cannula compared to his baseline of 2 L. He does not have access to his home Trelegy inhaler; therefore, Advair was initiated during this admission. Laboratory evaluation revealed a D-dimer of 3.46. CTA chest was reviewed and showed no evidence of pulmonary embolism. Findings included a new medial right lower lobe subpleural irregular noncalcified nodule with focal pleural thickening, for which malignancy could not be excluded, and PET/CT was recommended for further evaluation. Additional chronic findings included pulmonary emphysema, pulmonary fibrosis and scarring, arteriosclerotic disease, hepatic and left renal cysts, chronic bony changes, and evidence of old granulomatous disease. The patient will require outpatient follow-up with Pulmonology for further workup and management. If his symptoms improve and oxygen requirement decreases, discharge may be considered tomorrow. - Review of Systems Constitutional: No Fever, No Chills Eyes: No Symptoms Ears, Nose, & Throat: No Symptoms Respiratory: Short Of Breath, No Cough Cardiac: No Chest Pain, No Edema, No Syncope Abdominal/Gastrointestinal: No Abdominal Pain, No Nausea, No Vomiting, No Diarrhea Genitourinary Symptoms: No Dysuria Musculoskeletal: No Back Pain, No Neck Pain Skin: No Rash Neurological: No Dizziness, No Focal Weakness, No Sensory Changes Psychological: No Symptoms Endocrine: No Symptoms Hematologic/Lymphatic: No Symptoms Immunological/Allergic: No Symptoms Objective Exam General Appearance: no apparent distress, alert, thin Neurologic Exam: alert, oriented x 3, cooperative, normal mood/affect, nml cerebellar function, sensation nml, No motor deficits Skin Exam: normal color, warm, dry Eye Exam: PERRL, EOMI, eyes nml inspection Ears, Nose, Throat Exam: normal ENT inspection, pharynx normal, moist mucous membranes Neck Exam: normal inspection, non-tender, supple, full range of motion Respiratory Exam: diminished breath sounds, No respiratory distress Cardiovascular Exam: regular rate/rhythm, normal heart sounds Gastrointestinal/Abdomen Exam: soft, No tenderness, No mass Extremity Exam: normal inspection, normal range of motion Back Exam: normal inspection, normal range of motion, No CVA tenderness, No vertebral tenderness Male Genitalia Exam: deferred Rectal Exam: deferred Objective Data Vital Signs: Vital Signs - 24 hr Temp Pulse Resp BP BP Pulse Ox 01/11/25 07:28 98 F 75 16 130/60 97 01/11/25 07:05 84 18 92 L 01/11/25 04:32 97.1 F 85 22 112/60 98 01/10/25 23:29 97.2 F 91 H 22 133/75 96 01/10/25 21:51 92 H 20 146/64 01/10/25 19:45 90 20 99 01/10/25 19:10 97.4 F 81 19 94/50 98 01/10/25 16:00 97.6 F 92 H 23 131/67 96 01/10/25 14:12 79 20 96 01/10/25 12:34 76 22 96 01/10/25 10:41 99.1 F 76 23 125/82 97 01/10/25 10:16 99.1 F 76 23 125/82 97 01/10/25 09:59 99 01/10/25 09:58 95 01/10/25 09:30 88 21 119/61 96 Pain Assessment - Last Documented Pain Intensity 0 Intake and Output: Intake & Output 01/08/25 01/09/25 01/10/25 09/25/25 11:59 11:59 11:59 11:59 Intake Total 1700 Balance 1700 Weight 50.1 kg Lab Results: Lab Results-Last 24 Hours 01/10/25 01/10/25 01/10/25 Range/Units 08:45 09:03 09:03 WBC (4.23-9.07) x10^3/uL RBC (4.63-6.08) x10^6/uL Hgb (13.7-17.5) g/dL Hct (40.1-51.0) % MCV (79.0-92.2) fL MCH (25.7-32.2) pg MCHC (32.3-36.5) g/dL RDW (11.6-14.4) % Plt Count (163-337) x10^3/uL MPV (9.4-12.4) fL D-Dimer (0.0-0.50) mg/L Sodium 143 (135-145) mmol/L Potassium 4.5 (3.5-5.1) mmol/L Chloride 98 (98-107) mmol/L Carbon Dioxide 39 H (22-30) mmol/L Anion Gap 9.9 (5-15) MEQ/L BUN 18 (9-20) mg/dL Creatinine 0.83 (0.66-1.25) mg/dL Estimated GFR 89.6 ML/MIN Glucose 112 H (74-106) mg/dL POC Glucometer (74 to 106) mg/dL Hemoglobin A1c 5.72 (4.5-6.0) % Calcium 9.1 (8.4-10.2) mg/dL Total Bilirubin 0.30 (0.2-1.3) mg/dL AST 18 (17-59) U/L ALT 12 (0-50) U/L Alkaline Phosphatase 81 (38-126) U/L Troponin I < 0.012 (0.000-0.033) ng/mL NT-Pro-B Natriuret Pep 88.9 (<300) pg/mL Serum Total Protein 6.3 (6.3-8.2) g/dL Albumin 3.8 (3.5-5.0) g/dL Influenza Type A Ag (NEGATIVE) Influenza Type B Ag (NEGATIVE) RSV (PCR) (NEGATIVE) SARS-CoV-2 (PCR) (NEGATIVE) 01/10/25 01/10/25 01/10/25 Range/Units 09:03 09:03 11:48 WBC (4.23-9.07) x10^3/uL RBC (4.63-6.08) x10^6/uL Hgb (13.7-17.5) g/dL Hct (40.1-51.0) % MCV (79.0-92.2) fL MCH (25.7-32.2) pg MCHC (32.3-36.5) g/dL RDW (11.6-14.4) % Plt Count (163-337) x10^3/uL MPV (9.4-12.4) fL D-Dimer 3.46 H* (0.0-0.50) mg/L Sodium (135-145) mmol/L Potassium (3.5-5.1) mmol/L Chloride (98-107) mmol/L Carbon Dioxide (22-30) mmol/L Anion Gap (5-15) MEQ/L BUN (9-20) mg/dL Creatinine (0.66-1.25) mg/dL Estimated GFR ML/MIN Glucose (74-106) mg/dL POC Glucometer 131 H (74 to 106) mg/dL Hemoglobin A1c (4.5-6.0) % Calcium (8.4-10.2) mg/dL Total Bilirubin (0.2-1.3) mg/dL AST (17-59) U/L ALT (0-50) U/L Alkaline Phosphatase (38-126) U/L Troponin I (0.000-0.033) ng/mL NT-Pro-B Natriuret Pep (<300) pg/mL Serum Total Protein (6.3-8.2) g/dL Albumin (3.5-5.0) g/dL Influenza Type A Ag NEGATIVE (NEGATIVE) Influenza Type B Ag NEGATIVE (NEGATIVE) RSV (PCR) NEGATIVE (NEGATIVE) SARS-CoV-2 (PCR) NEGATIVE (NEGATIVE) 01/10/25 01/10/25 01/10/25 Range/Units 12:15 16:11 17:10 WBC (4.23-9.07) x10^3/uL RBC (4.63-6.08) x10^6/uL Hgb (13.7-17.5) g/dL Hct (40.1-51.0) % MCV (79.0-92.2) fL MCH (25.7-32.2) pg MCHC (32.3-36.5) g/dL RDW (11.6-14.4) % Plt Count (163-337) x10^3/uL MPV (9.4-12.4) fL D-Dimer (0.0-0.50) mg/L Sodium (135-145) mmol/L Potassium (3.5-5.1) mmol/L Chloride (98-107) mmol/L Carbon Dioxide (22-30) mmol/L Anion Gap (5-15) MEQ/L BUN (9-20) mg/dL Creatinine (0.66-1.25) mg/dL Estimated GFR ML/MIN Glucose (74-106) mg/dL POC Glucometer 252 H (74 to 106) mg/dL Hemoglobin A1c (4.5-6.0) % Calcium (8.4-10.2) mg/dL Total Bilirubin (0.2-1.3) mg/dL AST (17-59) U/L ALT (0-50) U/L Alkaline Phosphatase (38-126) U/L Troponin I < 0.012 < 0.012 (0.000-0.033) ng/mL NT-Pro-B Natriuret Pep (<300) pg/mL Serum Total Protein (6.3-8.2) g/dL Albumin (3.5-5.0) g/dL Influenza Type A Ag (NEGATIVE) Influenza Type B Ag (NEGATIVE) RSV (PCR) (NEGATIVE) SARS-CoV-2 (PCR) (NEGATIVE) 01/10/25 01/11/25 01/11/25 Range/Units 21:37 04:34 04:34 WBC 6.3 (4.23-9.07) x10^3/uL RBC 3.91 L (4.63-6.08) x10^6/uL Hgb 11.4 L (13.7-17.5) g/dL Hct 37.8 L (40.1-51.0) % MCV 96.7 H (79.0-92.2) fL MCH 29.2 (25.7-32.2) pg MCHC 30.2 L (32.3-36.5) g/dL RDW 13.3 (11.6-14.4) % Plt Count 166 (163-337) x10^3/uL MPV 10.6 (9.4-12.4) fL D-Dimer (0.0-0.50) mg/L Sodium 141 (135-145) mmol/L Potassium 3.7 (3.5-5.1) mmol/L Chloride 100 (98-107) mmol/L Carbon Dioxide 36 H (22-30) mmol/L Anion Gap 9.0 (5-15) MEQ/L BUN 24 H (9-20) mg/dL Creatinine 0.80 (0.66-1.25) mg/dL Estimated GFR 90.6 ML/MIN Glucose 190 H (74-106) mg/dL POC Glucometer 279 H (74 to 106) mg/dL Hemoglobin A1c (4.5-6.0) % Calcium 8.9 (8.4-10.2) mg/dL Total Bilirubin < 0.10 L (0.2-1.3) mg/dL AST 18 (17-59) U/L ALT 15 (0-50) U/L Alkaline Phosphatase 82 (38-126) U/L Troponin I (0.000-0.033) ng/mL NT-Pro-B Natriuret Pep (<300) pg/mL Serum Total Protein 6.0 L (6.3-8.2) g/dL Albumin 3.5 (3.5-5.0) g/dL Influenza Type A Ag (NEGATIVE) Influenza Type B Ag (NEGATIVE) RSV (PCR) (NEGATIVE) SARS-CoV-2 (PCR) (NEGATIVE) 01/11/25 Range/Units 07:09 WBC (4.23-9.07) x10^3/uL RBC (4.63-6.08) x10^6/uL Hgb (13.7-17.5) g/dL Hct (40.1-51.0) % MCV (79.0-92.2) fL MCH (25.7-32.2) pg MCHC (32.3-36.5) g/dL RDW (11.6-14.4) % Plt Count (163-337) x10^3/uL MPV (9.4-12.4) fL D-Dimer (0.0-0.50) mg/L Sodium (135-145) mmol/L Potassium (3.5-5.1) mmol/L Chloride (98-107) mmol/L Carbon Dioxide (22-30) mmol/L Anion Gap (5-15) MEQ/L BUN (9-20) mg/dL Creatinine (0.66-1.25) mg/dL Estimated GFR ML/MIN Glucose (74-106) mg/dL POC Glucometer 142 H (74 to 106) mg/dL Hemoglobin A1c (4.5-6.0) % Calcium (8.4-10.2) mg/dL Total Bilirubin (0.2-1.3) mg/dL AST (17-59) U/L ALT (0-50) U/L Alkaline Phosphatase (38-126) U/L Troponin I (0.000-0.033) ng/mL NT-Pro-B Natriuret Pep (<300) pg/mL Serum Total Protein (6.3-8.2) g/dL Albumin (3.5-5.0) g/dL Influenza Type A Ag (NEGATIVE) Influenza Type B Ag (NEGATIVE) RSV (PCR) (NEGATIVE) SARS-CoV-2 (PCR) (NEGATIVE) Radiology Exams: Radiology Procedures Category Date Time Status CHEST 1 VIEW (PORTABLE) Stat Exams 01/10/25 08:42 Completed CHEST WITH CONTRAST [CT] Routine Exams 01/10/25 13:06 Completed Medications: Medications Generic Name Dose Route Start Last Admin Trade Name Freq PRN Reason Stop Dose Admin Albuterol/Ipratropium 3 ml 01/10/25 15:00 01/11/25 07:03 Ipratropium/Albuterol Sulfate 3 Ml Ampul.Neb 02/09/25 14:59 3 ml QIDRT YEYO Administration Albuterol/Ipratropium 3 ml 01/10/25 16:52 Ipratropium/Albuterol Sulfate 3 Ml Ampul.Neb IH 02/09/25 16:51 Q4HPRN PRN SHORTNESS OF BREATH/WHEEZING Alprazolam 0.5 mg 01/10/25 10:59 01/10/25 21:49 Alprazolam 0.5 Mg Tablet PO 02/09/25 10:58 0.5 mg TID YEYO Administration Methylprednisolone Sodium 0 mg 01/10/25 14:00 01/11/25 05:32 Succinate 40 mg/ Sterile Water IV 02/09/25 13:59 40 mg 1 ml Q8HT YEYO Administration Diltiazem HCl 120 mg 01/11/25 10:00 Diltiazem Hcl Cd 120 Mg Cap.Sr.24h PO 02/10/25 09:59 DAILY YEYO Enoxaparin Sodium 40 mg 01/10/25 12:00 01/10/25 12:05 Enoxaparin Sodium 40 Mg/0.4 Ml Syringe SQ 02/09/25 11:59 40 mg DAILY YEYO Administration Fluticasone Propionate 0 gm 01/10/25 10:59 Fluticasone Propionate 16 Gm Bottle Nasal Nelson NS 02/09/25 10:58 DAILY PRN PRN ALLERGIES Guaifenesin 600 mg 01/10/25 12:00 01/10/25 21:48 Guaifenesin 600 Mg Tablet Er PO 02/09/25 11:59 600 mg BID YEYO Administration Ceftriaxone Sodium 1 gm in 100 mls @ 200 mls/hr 01/10/25 12:00 01/10/25 11:32 Rocephin 1 Gm / 100 Ml Nacl IV 02/09/25 11:59 200 mls/hr Q24H10 YEYO Administration Azithromycin 500 mg/ Sodium 250 mls @ 250 mls/hr 01/10/25 12:00 01/10/25 12:02 Chloride IV 02/09/25 11:59 250 mls/hr Q24H10 YEYO Administration Insulin Human Lispro 0 unit 01/10/25 11:09 01/10/25 21:47 Insulin Lispro 1 Unit SQ 02/09/25 11:08 4 unit UD PRN Administration HYPERGLYCEMIA Mirtazapine 30 mg 01/10/25 12:00 01/10/25 11:31 Mirtazapine 30 Mg Tablet PO 02/09/25 11:59 30 mg DAILY YEYO Administration Montelukast Sodium 10 mg 01/10/25 22:00 01/10/25 21:49 Montelukast Sodium 10 Mg Tablet PO 02/09/25 21:59 10 mg HS YEYO Administration Pantoprazole Sodium 20 mg 01/10/25 12:00 01/10/25 11:31 Pantoprazole 20 Mg Tab PO 02/09/25 11:59 20 mg DAILY YEYO Administration Fluticasone/Salmeterol 2 puff 01/10/25 19:00 01/11/25 07:05 Fluticasone/Salmeterol 115/21 60 Puff Aer.W.Adap IH 02/09/25 18:59 2 puff BIDRT YEYO Administration Sertraline HCl 100 mg 01/11/25 10:00 Sertraline Hcl 50 Mg Tab PO 02/10/25 09:59 DAILY YEYO Simvastatin 20 mg 01/10/25 22:00 01/10/25 21:49 Simvastatin 20 Mg Tablet PO 02/09/25 21:59 20 mg HS YEYO Administration Zolpidem Tartrate 5 mg 01/10/25 22:00 01/10/25 21:49 Zolpidem Tartrate 5 Mg Tab PO 02/09/25 21:59 5 mg HS YEYO Administration Discontinued Medications Generic Name Dose Route Start Last Admin Trade Name Filiq PRN Reason Stop Dose Admin Albuterol/Ipratropium 6 ml 01/10/25 08:42 01/10/25 09:00 Ipratropium/Albuterol Sulfate 3 Ml Ampul.Neb IH 01/10/25 08:43 6 ml STAT ONE Administration Albuterol/Ipratropium Confirm 01/10/25 08:57 Ipratropium/Albuterol Sulfate 3 Ml Ampul.Neb Administered 01/10/25 08:58 Dose 3 ml IH .STK-MED ONE Albuterol/Ipratropium Confirm 01/10/25 09:03 Ipratropium/Albuterol Sulfate 3 Ml Ampul.Neb Administered 01/10/25 09:04 Dose 3 ml IH .STK-MED ONE Methylprednisolone Sodium 0 mg 01/10/25 08:42 01/10/25 09:29 Succinate 125 mg/ Sterile IV 01/10/25 08:43 125 mg Water 2 ml STAT ONE Administration Methylprednisolone Sodium Succinate Confirm 01/10/25 08:45 Methylprednis Sod Succ 125 Mg/2 Ml Vial Administered 01/10/25 08:46 Dose 125 mg .ROUTE .STK-MED ONE Miscellaneous Information 1 each 01/10/25 11:30 Medication Intervention 1 Each Each 02/09/25 11:29 .RT TO CHECK YEYO Sterile Water Confirm 01/10/25 08:44 Water For Injection,Sterile 10 Ml Vial Administered 01/10/25 08:45 Dose 10 ml IJ .STK-MED ONE Tiotropium [place] 1 ea 01/11/25 10:00 Tiotropium [place] 18 Mcg/Cap Inhaler IH 02/10/25 09:59 DAILY YEYO Assessment/Plan (1) Pneumonia Current Visit: Yes Status: Acute Code(s): J18.9 - PNEUMONIA, UNSPECIFIED ORGANISM (2) COPD exacerbation Current Visit: Yes Status: Acute Code(s): J44.1 - CHRONIC OBSTRUCTIVE PULMONARY DISEASE W (ACUTE) EXACERBATION (3) Anxiety Current Visit: Yes Status: Chronic Code(s): F41.9 - ANXIETY DISORDER, UNSPECIFIED (4) Insomnia Current Visit: Yes Status: Chronic Assessment & Plan: (1) Pneumonia Current Visit: Yes Status: Acute Assessment & Plan: -IV antibiotics, IV steroids, scheduled DuoNeb treatments, continue his Trelegy inhaler. - Chest X-ray: demonstrates findings consistent with COPD and right lung calcified granulomas, with interval improvement of a previous left base infiltrate/atelectasis leaving minimal residual changes. The remaining heart and lung structures are unremarkable. The bony thorax is intact, showing osteopenia and degenerative changes, with no acute abnormalities identified. - CBC, CMP reviewed - On 5lNC, baseline 2lNC 01/11 - D-dimer 3.46 - CTA chest: Impression: 1. Continued negative pulmonary embolus. 2. New medial right lower lobe subpleural irregular noncalcified nodule with focal pleural thickening. Malignancy not completely excluded. PET/CT may yield further formation. 3. Again chronic findings including pulmonary emphysema, pulmonary fibrosis/scarring, arteriosclerotic disease, hepatic/left renal cysts, chronic bony findings, and old granulomatous disease. - After reviewing CTA appears to not have pneumonia but rather COPD exacerbation. - F/U with Pulm OP - On 4lNC 92%, BL 2lNC - Advair added since did not have Trelegy inhaler Code(s): J18.9 - PNEUMONIA, UNSPECIFIED ORGANISM (2) COPD exacerbation Current Visit: Yes Status: Acute Assessment & Plan: - See plan above for pneumonia - Added mucinex - D-Dimer 3.46- See CTA results above Code(s): J44.1 - CHRONIC OBSTRUCTIVE PULMONARY DISEASE W (ACUTE) EXACERBATION (3) Anxiety Current Visit: Yes Status: Chronic Assessment & Plan: - Continue xanax Code(s): F41.9 - ANXIETY DISORDER, UNSPECIFIED (4) Insomnia Current Visit: Yes Status: Chronic Assessment & Plan: - Continue Ambien Code(s): G47.00 - INSOMNIA, UNSPECIFIED Code(s): G47.00 - INSOMNIA, UNSPECIFIED (5) Lung nodule seen on imaging study Current Visit: Yes Status: Acute Assessment & Plan: - RLL lung nodule seen on CTA- Will need OP eval with Pulm - Appointment made with Dr. Kulkarni. Code(s): R91.1 - SOLITARY PULMONARY NODULE (6) Pre-diabetes Current Visit: Yes Status: Chronic Assessment & Plan: - A1C 5.72- Controlled- pre-diabetic after reviewing old labs - Metformin held - Low dose S/S - Accuchecks AC/HS VTE: Lovenox PPI: Protonix Next of KIN: Child Elijah Pattersonwright [phone] D/C plan: 1-2 days Code status: Full Plan of care time > 36 minutes Code(s): R73.03 - PREDIABETES
[2025-01-11] MEDS: ZOLOFT 50 MG TABLET PO SCH (09:36)
[2025-01-11] MEDS: Cardizem CD PO SCH (09:37)
[2025-01-11] MEDS ORDERED: NON-FORMULARY ITEM (Fluticasone/Umeclidin/Vilanter [Trelegy Ellipta 200-62.5-25] 1 EACH Bl IH SCH (10:00)
[2025-01-11] MEDS ORDERED: Spiriva 18 Mcg/Cap Inhaler IH SCH (10:00)
[2025-01-11] MEDS: Xopenex 1.25 MG/0.5 ML UD NEBULE IH PRN (18:55)
[2025-01-12 04:58] LABS: Hematocrit 37.4 % (40.1-51.0); Hemoglobin 11.3 g/dL (13.7-17.5); Mean Corpuscular Hemoglobin 29.5 pg (25.7-32.2); Mean Corpuscular Hgb Concent. 30.2 g/dL (32.3-36.5); Platelet Count 199 x10^3/uL (163-337); Red Blood Count 3.83 x10^6/uL (4.63-6.08); White Blood Count 21.2 x10^3/uL (4.23-9.07)
[2025-01-12 05:24] LABS: Calcium 8.6 mg/dL (8.4-10.2); Carbon Dioxide 37 mmol/L (22-30); Creatinine 1 0.82 mg/dL (0.66-1.25); EST GLOMERULAR FILTRATION RATE 89.9 ML/MIN; Glucose 155 mg/dL (74-106); Potassium 4.0 mmol/L (3.5-5.1); SGOT/AST 19 U/L (17-59); SGPT/ALT 16 U/L (0-50); Total Protein 5.6 g/dL (6.3-8.2)
[2025-01-12 07:36] VITALS: BP 137/71; PULSE 87; RESP 20; TEMP 98.7; O2SAT 96
--- NOTE | 2025-01-12 09:21 | PCM.DS ---
Discharge Summary Date of Admission: 01/10/25 10:14 Date of Discharge: 01/12/25 Admitting Physician: BRANDIN GALLEGOS MD Primary Care Provider: CASANDRA HENSLEY Allergies Allergies No Known Drug Allergies Allergy (Verified 01/10/25 10:24) Hospital Summary - Hospital Course Hospital Course: The patient is a 79-year-old male with a history of COPD (baseline 2 L nasal cannula), cataracts, anxiety, and arrhythmia who presented with worsening shortness of breath, productive cough, wheezing, fatigue, and low-grade fever. In the ED, he was treated with DuoNeb with partial relief and admitted on IV antibiotics, IV steroids, and scheduled DuoNebs, with Trelegy continued. Imaging revealed COPD changes with old calcified granulomas and improved prior infiltrate. His hospital course was complicated by increasing oxygen requirement up to 45 L, and CTA chest was negative for PE but showed a new irregular right lower lobe subpleural noncalcified nodule with focal pleural thickening, for which malignancy could not be excluded; outpatient PET/CT and pulmonology follow-up were recommended. Additional chronic findings included emphysema, fibrosis, arteriosclerosis, hepatic and renal cysts, and evidence of old granulomatous disease. By 01/12, he reported symptomatic improvement, with clear lung sounds and weaning back to his baseline of 2 L at rest, although desaturation occurred with exertion. Respiratory therapy evaluated him for possible increased home oxygen needs. He was discharged home in stable condition on antibiotics and steroids, with instructions to follow up with Pulmonology and his primary care provider for ongoing management and further workup of the pulmonary nodule. - Vitals & Intake/Output Vital Signs: Vital Signs Temperature 98.7 F 01/12/25 07:35 Pulse Rate 87 01/12/25 07:35 Respiratory Rate 20 01/12/25 07:35 Blood Pressure 137/71 01/12/25 07:35 O2 Sat by Pulse Oximetry 96 01/12/25 07:35 Intake & Output: Intake & Output 01/09/25 01/10/25 01/11/25 01/12/25 11:59 11:59 11:59 11:59 Intake Total 1700 2308 Output Total 300 1250 Balance 1400 1058 Weight 50.1 kg - Lab Result Diagrams: 01/12/25 04:34 01/12/25 04:34 Lab Results-Last 24 Hrs: Lab Results-Last 24 Hours 01/11/25 01/11/25 01/11/25 Range/Units 10:57 15:51 21:50 WBC (4.23-9.07) x10^3/uL RBC (4.63-6.08) x10^6/uL Hgb (13.7-17.5) g/dL Hct (40.1-51.0) % MCV (79.0-92.2) fL MCH (25.7-32.2) pg MCHC (32.3-36.5) g/dL RDW (11.6-14.4) % Plt Count (163-337) x10^3/uL MPV (9.4-12.4) fL Sodium (135-145) mmol/L Potassium (3.5-5.1) mmol/L Chloride (98-107) mmol/L Carbon Dioxide (22-30) mmol/L Anion Gap (5-15) MEQ/L BUN (9-20) mg/dL Creatinine (0.66-1.25) mg/dL Estimated GFR ML/MIN Glucose (74-106) mg/dL POC Glucometer 348 H 222 H 174 H (74 to 106) mg/dL Calcium (8.4-10.2) mg/dL Total Bilirubin (0.2-1.3) mg/dL AST (17-59) U/L ALT (0-50) U/L Alkaline Phosphatase (38-126) U/L Serum Total Protein (6.3-8.2) g/dL Albumin (3.5-5.0) g/dL 01/12/25 01/12/25 01/12/25 Range/Units 04:34 04:34 07:32 WBC 21.2 H (4.23-9.07) x10^3/uL RBC 3.83 L (4.63-6.08) x10^6/uL Hgb 11.3 L (13.7-17.5) g/dL Hct 37.4 L (40.1-51.0) % MCV 97.7 H (79.0-92.2) fL MCH 29.5 (25.7-32.2) pg MCHC 30.2 L (32.3-36.5) g/dL RDW 13.5 (11.6-14.4) % Plt Count 199 (163-337) x10^3/uL MPV 10.5 (9.4-12.4) fL Sodium 142 (135-145) mmol/L Potassium 4.0 (3.5-5.1) mmol/L Chloride 101 (98-107) mmol/L Carbon Dioxide 37 H (22-30) mmol/L Anion Gap 8.0 (5-15) MEQ/L BUN 26 H (9-20) mg/dL Creatinine 0.82 (0.66-1.25) mg/dL Estimated GFR 89.9 ML/MIN Glucose 155 H (74-106) mg/dL POC Glucometer 151 H (74 to 106) mg/dL Calcium 8.6 (8.4-10.2) mg/dL Total Bilirubin < 0.10 L (0.2-1.3) mg/dL AST 19 (17-59) U/L ALT 16 (0-50) U/L Alkaline Phosphatase 70 (38-126) U/L Serum Total Protein 5.6 L (6.3-8.2) g/dL Albumin 3.3 L (3.5-5.0) g/dL Micro Results-Entire Visit: Accuchecks Date 01/12/25 Date 01/11/25 Date 01/11/25 Time 07:35 Time 15:59 Time 10:59 - Radiology Exams Ordered Rad Exams-Entire Visit: Radiology Procedures Category Date Time Status CHEST 1 VIEW (PORTABLE) Stat Exams 01/10/25 08:42 Completed CHEST WITH CONTRAST [CT] Routine Exams 01/10/25 13:06 Completed - Procedures and Test Procedures and Tests throughout Hospitalization: Therapy Orders & Screens 01/10/25 08:54 Respiratory Therapy Assessment DAILY Comment: 01/10/25 10:59 RT Screen per Nursing Assess ONCE Comment: Protocol Order Physician Instructions: Greater than 3 points order RT Admission Screen Reason For Exam: Triggered on Admission Diagnosis: COPD Exacerbation Diagnosis: COPD Exacerbation Pneumonia: No Home O2: Yes Asthma: No CHF: No Home CPAP/BIPAP: No Home Nebs/MDI: Yes Total Points: 10 01/10/25 11:47 Oxygen Nasal Cannula 4 lpm Comment: Diagnosis: copd exacerbation Respiratory Therapy Assessment DAILY Comment: Diagnosis: copd exacerbation 01/10/25 12:30 Respiratory MDI BID Comment: Diagnosis: copd exacerbation 01/10/25 13:17 RT Miscellaneous Order ROUTINE Comment: Physician Instructions: Reason For Exam: Wean O2 PRN, baseline O2 is 2lNC. Diagnosis: copd exacerbation 01/12/25 09:02 RT Miscellaneous Order ROUTINE Comment: Physician Instructions: baseline 2lNC Reason For Exam: eval for home O2 increased need Diagnosis: copd exacerbation Discharge Exam General Appearance: no apparent distress, alert, thin Neurologic Exam: alert, oriented x 3, cooperative, normal mood/affect, nml cerebellar function, sensation nml, No motor deficits Eye Exam: PERRL, EOMI, eyes nml inspection Ears, Nose, Throat Exam: normal ENT inspection, pharynx normal, moist mucous membranes Neck Exam: normal inspection, non-tender, supple, full range of motion Respiratory Exam: normal breath sounds, lungs clear, No respiratory distress Cardiovascular Exam: regular rate/rhythm, normal heart sounds Gastrointestinal/Abdomen Exam: soft, No tenderness, No mass Male Genitalia Exam: deferred Rectal Exam: deferred Back Exam: normal inspection, normal range of motion, No CVA tenderness, No vertebral tenderness Extremity Exam: normal inspection, normal range of motion Skin Exam: normal color, warm, dry Final Diagnosis/Problem List - Final Discharge Diagnosis/Problem (1) Pneumonia Current Visit: Yes Status: Acute Code(s): J18.9 - PNEUMONIA, UNSPECIFIED ORGANISM (2) COPD exacerbation Current Visit: Yes Status: Acute Code(s): J44.1 - CHRONIC OBSTRUCTIVE PULMONARY DISEASE W (ACUTE) EXACERBATION (3) Anxiety Current Visit: Yes Status: Chronic Code(s): F41.9 - ANXIETY DISORDER, UNSPECIFIED (4) Insomnia Current Visit: Yes Status: Chronic Code(s): G47.00 - INSOMNIA, UNSPECIFIED (5) Lung nodule seen on imaging study Current Visit: Yes Status: Acute Code(s): R91.1 - SOLITARY PULMONARY NODULE (6) Pre-diabetes Current Visit: Yes Status: Chronic Assessment & Plan: (1) Pneumonia Current Visit: Yes Status: Acute Assessment & Plan: -IV antibiotics, IV steroids, scheduled DuoNeb treatments, continue his Trelegy inhaler. - Chest X-ray: demonstrates findings consistent with COPD and right lung calcified granulomas, with interval improvement of a previous left base infiltrate/atelectasis leaving minimal residual changes. The remaining heart and lung structures are unremarkable. The bony thorax is intact, showing osteopenia and degenerative changes, with no acute abnormalities identified. - CBC, CMP reviewed - On 5lNC, baseline 2lNC 01/11 - D-dimer 3.46 - CTA chest: Impression: 1. Continued negative pulmonary embolus. 2. New medial right lower lobe subpleural irregular noncalcified nodule with focal pleural thickening. Malignancy not completely excluded. PET/CT may yield further formation. 3. Again chronic findings including pulmonary emphysema, pulmonary fibrosis/scarring, arteriosclerotic disease, hepatic/left renal cysts, chronic bony findings, and old granulomatous disease. - After reviewing CTA appears to not have pneumonia but rather COPD exacerbation. -Azithromycin stopped - F/U with Pulm OP - On 4lNC 92%, BL 2lNC - Advair added since did not have Trelegy inhaler 01/12 - on 2lNC 96% at rest- O2 decreases with walking - RT eval for increased home O2 need Code(s): J18.9 - PNEUMONIA, UNSPECIFIED ORGANISM (2) COPD exacerbation Current Visit: Yes Status: Acute Assessment & Plan: - See plan above for pneumonia - Added mucinex - D-Dimer 3.46- See CTA results above 01/12 - D/C with steroids, antibiotics, and xoponex Code(s): J44.1 - CHRONIC OBSTRUCTIVE PULMONARY DISEASE W (ACUTE) EXACERBATION (3) Anxiety Current Visit: Yes Status: Chronic Assessment & Plan: - Continue xanax Code(s): F41.9 - ANXIETY DISORDER, UNSPECIFIED (4) Insomnia Current Visit: Yes Status: Chronic Assessment & Plan: - Continue Ambien Code(s): G47.00 - INSOMNIA, UNSPECIFIED (5) Lung nodule seen on imaging study Current Visit: Yes Status: Acute Assessment & Plan: - RLL lung nodule seen on CTA- Will need OP eval with Pulm - Appointment made with Dr. Mora. Code(s): R91.1 - SOLITARY PULMONARY NODULE (6) Pre-diabetes Current Visit: Yes Status: Chronic Assessment & Plan: - A1C 5.72- Controlled- pre-diabetic after reviewing old labs - Metformin held - Low dose S/S - Accuchecks AC/HS D/C plan of care time > 40 minutes Code(s): R73.03 - PREDIABETES - Discharge Discharge Date: 01/12/25 Disposition: Home, Self-Care Condition: Stable Prescriptions: New levalbuterol HCl [Xopenex 1.25 MG/0.5 ML UD NEBULE] 1.25 mg IH Q6H PRN PRN 8 Days #30 units PRN Reason: Shortness Of Breath cefuroxime axetiL [Cefuroxime] 500 mg PO BID 7 Days #14 tablet Prednisone 20 mg [Deltasone 20 mg] 20 mg PO BID 5 Days #10 tablet Continue Simvastatin 20Mg [Zocor 20Mg] 20 mg PO HS Montelukast Sodium 10 mg [Singulair 10 MG] 10 mg PO HS Sertraline HCl [Zoloft] 100 mg PO DAILY Fluticasone/Umeclidin/Vilanter [Trelegy Ellipta 200-62.5-25] 1 each IH DAILY dilTIAZem HCL [Diltiazem 24Hr ER (Cd)] 120 mg PO DAILY Metformin HCl [Metformin HCl ER] 500 mg PO DAILY Albuterol Sulfate [Albuterol Sulfate Hfa] 2 puff IH DAILY PRN PRN Reason: Shortness Of Breath Zolpidem Tartrate 5 mg [Ambien 5 MG Tablet] 5 mg PO HS Mirtazapine 30 mg [Remeron 30 mg] 30 mg PO DAILY ALPRAZolam [Alprazolam] 0.5 mg PO TID Fluticasone Propionate 1 spray INTRANASAL DAILY PRN PRN Reason: Allergies Instructions: Lowering your risk of prediabetes and type 2 diabetes, Multiple pulmonary nodules, COPD exacerbation - Discharge instructions Additional Instructions: You can take OTC mucinex if you found this helpful for increased secretions. Follow up with: SHANICE MORA [ACTIVE STAFF, PULMONARY MEDICINE] - 01/17/25 1:45 pm CASANDRA HENSLEY MD [Primary Care Provider, [facility]] - 01/23/25 1:15 pm
[2025-01-12] MEDS: FLUZONE HIGH IM ONE (10:39)
== END 2025-01-12 11:02 | disposition home or self-care (01) ==
LOC: ED 08:33 → MED SURG 10:14
PROVIDERS: ADMIT Internal Medicine; ATTEND Internal Medicine
DX: J18.9 Pneumonia, unspecified organism (principal); J44.1 Chronic obstructive pulmonary disease with (acute) exacerbation; F41.9 Anxiety disorder, unspecified; G47.00 Insomnia, unspecified; Z99.81 Dependence on supplemental oxygen; R50.9 Fever, unspecified; R91.1 Solitary pulmonary nodule; R73.03 Prediabetes; Z79.899 Other long term (current) drug therapy; R06.02 Shortness of breath; Z23 Encounter for immunization
CPT/HCPCS: 36415; 71045; 71260; 80053; 82947; 83036; 83605; 83880; 84484; 85025; 85027; 85379; 87637; 93005; 93041; 93268; 94640; 94762; 96374; 99285; G0008; G0378; Q3014